=== PATIENT | female | born 1955 | race Caucasian/White ===

== ENCOUNTER 2017-09-11 11:41 | Emergency (ER) | payer BC, OTHER ==
[2017-09-11 12:00] LABS: AUTOMATED NEUTROPHIL # 9.2 TH/MM3 (1.8-7.7); BASOPHIL % 0.2 % (0.0-2.0); EOSINOPHIL # 0.2 TH/MM3 (0-0.4); EOSINOPHIL % 1.6 % (0.0-4.0); HEMATOCRIT 39.1 % (35.0-46.0); HEMO FLAGS DIFF FINAL; HEMOGLOBIN 12.7 GM/DL (11.6-15.3); LYMPH % 17.9 % (9.0-44.0); LYMPHOCYTE # 2.2 TH/MM3 (1.0-4.8); MEAN CELL VOLUME 82.7 FL (80.0-100.0); MEAN CORPUSCULAR HEMOGLOBIN 26.8 PG (27.0-34.0); MEAN CORPUSCULAR HGB CONC 32.4 % (32.0-36.0); MEAN PLATELET VOLUME 7.4 FL (7.0-11.0); MONO % 6.5 % (0.0-8.0); MONOCYTE # 0.8 TH/MM3 (0-0.9); NEUT % 73.8 % (16.0-70.0); PLATELET COUNT 352 TH/MM3 (150-450); RED BLOOD COUNT 4.73 MIL/MM3 (4.00-5.30); RED CELL DISTRIBUTION WIDTH 13.1 % (11.6-17.2); WHITE BLOOD COUNT 12.4 TH/MM3 (4.0-11.0)
[2017-09-11] MEDS ORDERED: SODIUM CHLORIDE 0.9% FLUSH 10 ML FLUSH IVF (12:00)
[2017-09-11 12:08] LABS: CHLORIDE 100 MEQ/L (98-107); POTASSIUM 3.6 MEQ/L (3.5-5.1); SODIUM (NA) 135 MEQ/L (136-145)
[2017-09-11 12:11] LABS: CALCIUM 9.2 MG/DL (8.5-10.1)
[2017-09-11 12:12] LABS: ALBUMIN 3.3 GM/DL (3.4-5.0); ANION GAP 8 MEQ/L (5-15); BICARBONATE 26.8 MEQ/L (21.0-32.0); BLOOD UREA NITROGEN 11 MG/DL (7-18); GLUCOSE,RANDOM 105 MG/DL (74-106); MAGNESIUM 2.2 MG/DL (1.5-2.5)
[2017-09-11 12:14] LABS: APTT (PATIENT) 26.4 SEC (24.3-30.1); INTERNATIONAL NORMALIZED RATIO 1.1 RATIO; PROTHROMBIN TIME - PATIENT 11.4 SEC (9.8-11.6)
[2017-09-11 12:15] LABS: ALT (GPT) 24 U/L (10-53); AST (GOT) 37 U/L (15-37); CREATININE 0.71 MG/DL (0.50-1.00); GLOMERULAR FILTRATION RATE 83 ML/MIN (>89)
[2017-09-11 12:16] LABS: TOTAL BILIRUBIN ADULT 0.7 MG/DL (0.2-1.0); TOTAL PROTEIN 7.4 GM/DL (6.4-8.2)
[2017-09-11 12:18] LABS: ALKALINE PHOSPHATASE 178 U/L (45-117)
[2017-09-11 12:20] LABS: TROPONIN I LESS THAN 0.02 NG/ML (0.02-0.05)
[2017-09-11 12:30] LABS: CREATINE KINASE 45 U/L (26-192)
[2017-09-11] MEDS: ASPIRIN 81 MG CHEW TAB CHEW (12:41)
== END 2017-09-11 13:51 | disposition home or self-care (01) ==
LOC: PHED 11:41
DX: R07.9 Chest pain, unspecified (principal); R94.31 Abnormal electrocardiogram [ECG] [EKG]; F41.8 Other specified anxiety disorders; F17.210 Nicotine dependence, cigarettes, uncomplicated
CPT/HCPCS: 71045; 80053; 82550; 83735; 84484; 85025; 85610; 85730; 93005; 99285

== ENCOUNTER 2017-09-16 10:39 | Inpatient (IN) | payer BC ==
[2017-09-16] VITALS (7 sets, daily range): BP systolic 126–164; BP diastolic 66–89; PULSE 68–91; RESP 16–18; TEMP 97.9–99.9; O2SAT 98–100
[~2017-09-16] VITALS: Ht 177.8 cm; Wt 75.2 kg
[2017-09-16] MEDS ORDERED: NEXI40CA PO (10:52)
[2017-09-16] MEDS ORDERED: SODIUM CHLORIDE 0.9% FLUSH 10 ML FLUSH IV FLUSH PRN (11:15)
--- NOTE | 2017-09-16 11:35 | RADRPT ---
EXAM DATE/TIME: 09/16/2017 11:15 [facility] COMPARISON: CHEST SINGLE AP, September 11, 2017, 12:06. INDICATIONS : Chest pain MEDICAL HISTORY : None. SURGICAL HISTORY : None. ENCOUNTER: Sequela ACUITY: 2 weeks PAIN SCORE: 10/10 LOCATION: Bilateral chest FINDINGS: A single view of the chest demonstrates the lungs to be symmetrically aerated without evidence of mas s, infiltrate or effusion. The cardiomediastinal contours are unremarkable. Osseous structures are intact. CONCLUSION: No acute disease. Micky Esqueda MD FACR on September 16, 2017 at 11:32 Board Certified Radiologist. This report was verified electronically.
[2017-09-16 11:55] LABS: AUTOMATED NEUTROPHIL # 9.2 TH/MM3 (1.8-7.7); BASOPHIL # 0.1 TH/MM3 (0-0.2); BASOPHIL % 0.8 % (0.0-2.0); EOSINOPHIL # 0.3 TH/MM3 (0-0.4); EOSINOPHIL % 2.3 % (0.0-4.0); HEMATOCRIT 38.4 % (35.0-46.0); HEMOGLOBIN 12.5 GM/DL (11.6-15.3); LYMPH % 14.3 % (9.0-44.0); LYMPHOCYTE # 1.7 TH/MM3 (1.0-4.8); MEAN CORPUSCULAR HGB CONC 32.5 % (32.0-36.0); MEAN PLATELET VOLUME 8.3 FL (7.0-11.0); MONO % 7.1 % (0.0-8.0); MONOCYTE # 0.9 TH/MM3 (0-0.9); NEUT % 75.5 % (16.0-70.0); PLATELET COUNT 296 TH/MM3 (150-450); RED BLOOD COUNT 4.63 MIL/MM3 (4.00-5.30); RED CELL DISTRIBUTION WIDTH 13.7 % (11.6-17.2); WHITE BLOOD COUNT 12.2 TH/MM3 (4.0-11.0)
[2017-09-16 12:05] LABS: CHLORIDE 103 MEQ/L (98-107); SODIUM (NA) 139 MEQ/L (136-145)
[2017-09-16 12:08] LABS: CALCIUM 8.5 MG/DL (8.5-10.1)
[2017-09-16 12:09] LABS: ALBUMIN 2.9 GM/DL (3.4-5.0); BICARBONATE 27.6 MEQ/L (21.0-32.0); BLOOD UREA NITROGEN 7 MG/DL (7-18); GLUCOSE,RANDOM 109 MG/DL (74-106); LIPASE 44 U/L (73-393)
[2017-09-16 12:12] LABS: ALT (GPT) 34 U/L (10-53); AST (GOT) 62 U/L (15-37); GLOMERULAR FILTRATION RATE 125 ML/MIN (>89)
[2017-09-16 12:13] LABS: TOTAL BILIRUBIN ADULT 0.6 MG/DL (0.2-1.0); TOTAL PROTEIN 7.1 GM/DL (6.4-8.2)
[2017-09-16 12:14] LABS: ALKALINE PHOSPHATASE 276 U/L (45-117)
--- NOTE | 2017-09-16 12:14 | PD ---
HPI Chief Complaint: Abdominal Pain Time Seen by Provider: 10:46 Travel History International Travel<30 days: No Contact w/Intl Traveler<30days: No Traveled to known affect area: No History of Present Illness HPI This is a 61-year-old female who presents to the emergency department with 1 month of chest discomfort that's been present initially in the middle of her chest, moving towards the right side below the rib cage on the right, intermittent, worse with deep breaths, associated with some nausea and generalized weakness. She says she can hardly walk because she feels like her legs are giving out. She says she's had some subjective fevers and chills. She 's not vomited. She was seen in the emergency department for similar symptoms several weeks ago. It was recommended that she stay in the chest pain center but she preferred to do a stress test as an outpatient. She has a stress test scheduled for September 29 but she's been feeling too badly so she came to the emergency department. She does have a significant [id number] smoking history. She otherwise denies hypertension, hyperlipidemia or diabetes. PFSH Past Medical History Anxiety: Yes Depression: Yes Cancer: Yes (SKIN) Diminished Hearing: No Integumentary: Yes (SKIN CA LEFT LOWER LEG) Tetanus Vaccination: > 5 Years Influenza Vaccination: Yes ?: Not Menopausal: Yes Tubal Ligation: Yes Past Surgical History Oral Surgery: Yes (titanium post) Social History Alcohol Use: No Tobacco Use: Yes (1PPD) Substance Use: No Allergies-Medications (Allergen,Severity, Reaction): Coded Allergies: No Known Allergies (Verified Allergy, Unknown, 09/16/17) Reported Meds & Prescriptions Reported Meds & Active Scripts Active Reported Nexium (Esomeprazole DR) 40 Mg Capdr 40 Mg PO DAILY Review of Systems Except as stated in HPI: all other systems reviewed are Neg Physical Exam Narrative GENERAL: Ill-appearing. SKIN: Focused skin assessment warm and dry. HEAD: Atraumatic. Normocephalic. EYES: Pupils equal and round. No injection or drainage. ENT: Moist mucous membranes NECK: Trachea midline. CARDIOVASCULAR: Regular rate and rhythm. No murmur appreciated. RESPIRATORY: Clear to auscultation. Breath sounds equal bilaterally. GASTROINTESTINAL: Abdomen soft, tender to palpation in the right upper quadrant with no rebound or guarding. MUSCULOSKELETAL: No obvious deformities. NEUROLOGICAL: Awake and alert. No obvious cranial nerve deficits. Moving all extremities. PSYCHIATRIC: Appropriate mood and affect; insight and judgment normal. Data Data Last Documented VS Vital Signs Date Time Temp Pulse Resp B/P (MAP) Pulse Ox O2 Delivery O2 Flow Rate FiO2 09/16/17 12:16 68 18 148/70 (96) 98 Room Air 09/16/17 10:42 98.9 Orders Orders Complete Blood Count With Diff (09/16/17 11:12) Comprehensive Metabolic Panel (09/16/17 11:12) Lipase (09/16/17 11:12) Urinalysis - C+S If Indicated (09/16/17 11:12) Iv Access Insert/Monitor (09/16/17 11:12) Ecg Monitoring (09/16/17 11:12) Oximetry (09/16/17 11:12) Sodium Chloride 0.9% Flush (Ns Flush) (09/16/17 11:15) Chest, Single Ap (09/16/17 11:12) D-Dimer (09/16/17 11:12) Us Abdomen Gallbladder (09/16/17 ) Troponin I (09/16/17 11:12) Ct Pulmonary Angiogram (09/16/17 ) Ct Abd/Pel W Iv Contrast(Rout) (09/16/17 ) Admit To Inpatient (09/16/17 ) Vital Signs (Adult) [place].Q4H (09/16/17 12:49) Activity Oob With Assistance (09/16/17 12:49) Inpatient Certification (09/16/17 ) Piperacil-Tazo 3.375 Gm Premix (Zosyn 3. (09/16/17 13:00) Admit Order (Ed Use Only) (09/16/17 ) Labs Laboratory Tests Test 09/16/17 11:00 09/16/17 12:10 White Blood Count 12.2 TH/MM3 Red Blood Count 4.63 MIL/MM3 Hemoglobin 12.5 GM/DL Hematocrit 38.4 % Mean Corpuscular Volume 83.0 FL Mean Corpuscular Hemoglobin 27.0 PG Mean Corpuscular Hemoglobin Concent 32.5 % Red Cell Distribution Width 13.7 % Platelet Count 296 TH/MM3 Mean Platelet Volume 8.3 FL Neutrophils (%) (Auto) 75.5 % Lymphocytes (%) (Auto) 14.3 % Monocytes (%) (Auto) 7.1 % Eosinophils (%) (Auto) 2.3 % Basophils (%) (Auto) 0.8 % Neutrophils # (Auto) 9.2 TH/MM3 Lymphocytes # (Auto) 1.7 TH/MM3 Monocytes # (Auto) 0.9 TH/MM3 Eosinophils # (Auto) 0.3 TH/MM3 Basophils # (Auto) 0.1 TH/MM3 CBC Comment DIFF FINAL Differential Comment D-Dimer Quantitative (PE/DVT) 2.12 MG/L FEU Blood Urea Nitrogen 7 MG/DL Creatinine 0.50 MG/DL Random Glucose 109 MG/DL Total Protein 7.1 GM/DL Albumin 2.9 GM/DL Calcium Level 8.5 MG/DL Alkaline Phosphatase 276 U/L Aspartate Amino Transf (AST/SGOT) 62 U/L Alanine Aminotransferase (ALT/SGPT) 34 U/L Total Bilirubin 0.6 MG/DL Sodium Level 139 MEQ/L Potassium Level 3.4 MEQ/L Chloride Level 103 MEQ/L Carbon Dioxide Level 27.6 MEQ/L Anion Gap 8 MEQ/L Estimat Glomerular Filtration Rate 125 ML/MIN Troponin I LESS THAN 0.02 NG/ML Lipase 44 U/L Urine Collection Type CLEAN CATCH Urine Color YELLOW Urine Turbidity CLEAR Urine pH 5.5 Urine Specific [place] 1.023 Urine Protein TRACE mg/dL Urine Glucose (UA) NEG mg/dL Urine Ketones TRACE mg/dL Urine Occult Blood NEG Urine Nitrite NEG Urine Bilirubin NEG Urine Leukocyte Esterase NEG Urine RBC 0-3 /hpf Urine WBC 3-5 /hpf Urine Squamous Epithelial Cells 0-5 /hpf Urine Mucus FEW /lpf Microscopic Urinalysis Comment CULT NOT INDICATED Urine Collection Time 12:10 [facility] Medical Decision Making Medical Screen Exam Complete: Yes Emergency Medical Condition: Yes Interpretation(s) Afebrile, no tachycardia, hypertensive Leukocytosis 75% neutrophils Electrolytes demonstrate elevated alkaline phosphatase Troponin is normal Urinalysis is negative for infection D-dimer is 2.1 Last 24 hours Impressions Chest X-Ray 09/16/17 1112 Signed Impressions: Service Date/Time: Saturday, September 16, 2017 11:15 - CONCLUSION: No acute disease. Micky Esqueda MD FACR Gall Bladder Ultrasound 09/16/17 0000 Signed Impressions: Service Date/Time: Saturday, September 16, 2017 11:57 - CONCLUSION: 1. The gallbladder demonstrates fairly diffuse gallbladder wall thickening with a trace amount of pericholecystic fluid. The gallbladder does appear decompressed with no definite gallstones seen. 2. There are at least 2 lesions identified within the liver. The larger lesion is increased echogenicity and probably represents hemangioma. There is a second lesion measuring 1.1 x 1.2 x 0.8 CM which is indeterminate. 3. There is a 2.4 x 2.9 x 2.3 cm hypoechoic mass projecting off the pancreas. CT imaging of the abdomen is warranted for further assessment. John Esqueda MD Differential Diagnosis Cholelithiasis, cholecystitis, myocardial infarction, GERD, pancreatitis, pulmonary embolism Narrative Course This is a 61-year-old female who presents to the emergency department with sternal and epigastric discomfort that's been going on for 1 month with one week of right upper quadrant abdominal pain. She's been nauseous and per her daughter has had very poor energy. She is placed on a monitor and an IV was established. Labs demonstrate a mild leukocytosis as well as an elevated alkaline phosphatase. Ultrasound of the right upper quadrant demonstrates gallbladder wall thickening and pericholecystic fluid concerning for cholecystitis. Patient was given a dose of Zosyn. I discussed the case with Dr. Barraza who will come consult on the patient. Patient also incidentally has a pancreatic mass. On ultrasound. CT will be obtained to evaluate this better. Physician Communication Physician Communication Discussed with Dr. Susana Knox and Dr. Maki Diagnosis Primary Impression: Cholecystitis Admitting Information Admitting Physician Requests: Observation Sydney Milan MD Sep 16, 2017 12:14
[2017-09-16 12:17] LABS: TROPONIN I LESS THAN 0.02 NG/ML (0.02-0.05)
[2017-09-16 12:24] LABS: BILIRUBIN, URINE NEG (NEG); BLOOD, URINE NEG (NEG); GLUCOSE,URINE NEG (NEG); KETONE, URINE TRACE mg/dL (NEG); NITRITE,URINE NEG (NEG); PH, URINE 5.5 (5.0-8.5); URINE LEUKOCYTE ESTERASE NEG (NEG)
[2017-09-16 12:27] LABS: URINE COLOR YELLOW (YELLW/STRAW)
[2017-09-16 12:28] LABS: MUCUS URINE FEW /lpf (OCC); RBC, URINE 0-3 /hpf (0-3); SQUAMOUS EPITHELIAL CELL URINE 0-5 /hpf (0-5)
--- NOTE | 2017-09-16 12:32 | RADRPT ---
EXAM DATE/TIME: 09/16/2017 11:57 [facility] COMPARISON: No previous studies available for comparison. INDICATIONS : Right upper quadrant pain. MEDICAL HISTORY : Skin cancer. SURGICAL HISTORY : Tubal ligation. Oral surgery. Back surgery. ENCOUNTER: Initial ACUITY: 2 weeks PAIN SCORE: 7/10 LOCATION: Right upper quadrant MEASUREMENTS: LIVER: 19.4 cm length COMMON DUCT: 3 mm RIGHT KIDNEY: 13.0 x 5.3 x 5.0 cm FINDINGS: LIVER: Imaging through the liver demonstrates at least 2 solid nodules. The first is in the right lobe liver measures 2.2 x 1.6 x 2.1 cm. This is increased in echogenicity and probably represents a hemangioma. There is a second ill-defined area of decreased echogenicity in the left lobe measuring 1.1 x 1.2 x 0.8 CM. This is indeterminate in appearance by ultrasound. Followup CT with contrast with at some poi nt would be of benefit for further assessment. There is no intrahepatic biliary ductal dilation. COMMON DUCT: No intraluminal mass or stone visualized. GALLBLADDER: No gallstones are seen within the gallbladder. The gallbladder appears fairly decompressed. There is diffuse gallbladder wall thickening. There is a trace amount of pericholecystic fluid. PANCREAS: Examination of the pancreas demonstrates a 2.4 x 2.9 x 2.3 cm hypo echoic mass projecting off the ziyad l of the pancreas. This would be concerning for possible malignancy. Again CT imaging of the abdomen with contrast is warranted for further assessment. RIGHT KIDNEY: No evidence of hydronephrosis, stone, or mass. CONCLUSION: 1. The gallbladder demonstrates fairly diffuse gallbladder wall thickening with a trace amount of per icholecystic fluid. The gallbladder does appear decompressed with no definite gallstones seen. 2. There are at least 2 lesions identified within the liver. The larger lesion is increased echogenic ity and probably represents hemangioma. There is a second lesion measuring 1.1 x 1.2 x 0.8 CM which i s indeterminate. 3. There is a 2.4 x 2.9 x 2.3 cm hypoechoic mass projecting off the pancreas. CT imaging of the abdom en is warranted for further assessment. John Esqueda MD on September 16, 2017 at 12:25 Board Certified Radiologist. This report was verified electronically.
[2017-09-16] MEDS ORDERED: PIPERACIL-TAZO 3.375 GM PREMIX 50 ML IV ONE (13:00)
[2017-09-16] MEDS ORDERED: DIATRIZOATE MEGLUM/DIATRIZOATE SOD 9 ML CUP ONE (13:02)
--- NOTE | 2017-09-16 13:28 | HHI.HP ---
[facility] Primary [facility] Physician Lisa Espino MD Admission Diagnosis acute cholecystitis Diagnoses: Chief Complaint: Chest pain and belly pain Travel History International Travel<30 Days: No Contact w/Intl Traveler <30 Da: No Traveled to Known Affected Are: No History of Present Illness 61-year-old white female being admitted for acute cholecystitis as well as melena. Patient reports being in her usual state of health until about a few weeks ago when she began experiencing vague epigastric pain and some chest pain. She went to her PCP and was referred for outpatient workup including a chest x-ray, stress test, and a possible EGD. Only the chest x-ray has been performed but the other 2 tests are still scheduled as an outpatient for a later date. Patient did come to the emergency department some time last week for the original onset of these symptoms and was discharged home. She does not think it is her heart. She reports that her epigastric pain and chest pain are not actually induced by eating nor are they consistently reproduced by position changes. Patient does think that some of her chest pain happens when she lifts up heavy objects at work. She says she was prescribed Nexium and did not notice any difference in her chest pain and epigastric pain. She decided come back to the emergency room earlier this morning due to a new onset of right- sided abdominal pain. Again this pain was not necessarily food related. Patient does note that for the last 2 weeks she's had intermittent black stools. She had taken Pepto-Bismol in response to this new finding as well with no changes. Patient does report taking ibuprofen occasionally, last time she took it she claims was 3 weeks ago. The emergency room, the patient's d-dimer was noted to be slightly elevated and her gallbladder ultrasound showed gallbladder wall thickening as well as a possible pancreatic mass. Vital signs otherwise remained stable. 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 EYES: No scleral icterus. No injection or drainage. ENT: No nasal bleeding or discharge. CARDIOVASCULAR: Regular rate and rhythm. no murmurs RESPIRATORY: No accessory muscle use. Clear to auscultation. Breath sounds equal bilaterally. GASTROINTESTINAL: Abdomen soft, non-tender, nondistended. Has no focal tenderness to palpation in epigastrium nor right upper lower quadrants., No masses palpated Extremities: No clubbing, cyanosis, or edema. No obvious deformities. MUSCULOSKELETAL: Has no reproducible chest wall tenderness to palpation over the areas which the patient states she has had pain Including sternum and bilateral pectoral regions. Grossly intact ROM with 5/5 strength in upper and lower extremities proximally; adequate muscle bulk and tone for age and habitus NEUROLOGICAL: Awake and alert. No obvious cranial nerve deficits. No facial droop nor slurred speech noted. PSYCHIATRIC: Appropriate mood and affect; insight and judgment normal. Laboratory Laboratory Tests Test 09/16/17 11:00 09/16/17 12:10 White Blood Count 12.2 Red Blood Count 4.63 Hemoglobin 12.5 Hematocrit 38.4 Mean Corpuscular Volume 83.0 Mean Corpuscular Hemoglobin 27.0 Mean Corpuscular Hemoglobin Concent 32.5 Red Cell Distribution Width 13.7 Platelet Count 296 Mean Platelet Volume 8.3 Neutrophils (%) (Auto) 75.5 Lymphocytes (%) (Auto) 14.3 Monocytes (%) (Auto) 7.1 Eosinophils (%) (Auto) 2.3 Basophils (%) (Auto) 0.8 Neutrophils # (Auto) 9.2 Lymphocytes # (Auto) 1.7 Monocytes # (Auto) 0.9 Eosinophils # (Auto) 0.3 Basophils # (Auto) 0.1 CBC Comment DIFF FINAL Differential Comment D-Dimer Quantitative (PE/DVT) 2.12 Blood Urea Nitrogen 7 Creatinine 0.50 Random Glucose 109 Total Protein 7.1 Albumin 2.9 Calcium Level 8.5 Alkaline Phosphatase 276 Aspartate Amino Transf (AST/SGOT) 62 Alanine Aminotransferase (ALT/SGPT) 34 Total Bilirubin 0.6 Sodium Level 139 Potassium Level 3.4 Chloride Level 103 Carbon Dioxide Level 27.6 Anion Gap 8 Estimat Glomerular Filtration Rate 125 Troponin I LESS THAN 0.02 Lipase 44 Urine Collection Type CLEAN CATCH Urine Color YELLOW Urine Turbidity CLEAR Urine pH 5.5 Urine Specific [place] 1.023 Urine Protein TRACE Urine Glucose (UA) NEG Urine Ketones TRACE Urine Occult Blood NEG Urine Nitrite NEG Urine Bilirubin NEG Urine Leukocyte Esterase NEG Urine RBC 0-3 Urine WBC 3-5 Urine Squamous Epithelial Cells 0-5 Urine Mucus FEW Microscopic Urinalysis Comment CULT NOT INDICATED Urine Collection Time 12:10 Result Diagram: 09/16/17 1100 09/16/17 1100 Imaging Last Impressions Chest X-Ray 09/16/17 1112 Signed Impressions: Service Date/Time: Saturday, September 16, 2017 11:15 - CONCLUSION: No acute disease. Micky Esqueda MD FACR Gall Bladder Ultrasound 09/16/17 0000 Signed Impressions: Service Date/Time: Saturday, September 16, 2017 11:57 - CONCLUSION: 1. The gallbladder demonstrates fairly diffuse gallbladder wall thickening with a trace amount of pericholecystic fluid. The gallbladder does appear decompressed with no definite gallstones seen. 2. There are at least 2 lesions identified within the liver. The larger lesion is increased echogenicity and probably represents hemangioma. There is a second lesion measuring 1.1 x 1.2 x 0.8 CM which is indeterminate. 3. There is a 2.4 x 2.9 x 2.3 cm hypoechoic mass projecting off the pancreas. CT imaging of the abdomen is warranted for further assessment. MD Angy Hookeri VTE Risk Assessment Caprini VTE Risk Assessment: Mod/High Risk (score >= 2) Caprini Risk Assessment Model Point Value = 1 Point Value = 2 Point Value = 3 Point Value = 5 Age 41-60 Minor surgery BMI > 25 kg/m2 Swollen legs Varicose veins or History of unexplained or recurrent spontaneous Oral contraceptives or hormone replacement Sepsis (< 1 month) Serious lung disease, including pneumonia (< 1 month) Abnormal pulmonary function Acute myocardial infarction Congestive heart failure (< 1 month) History of inflammatory bowel disease Medical patient at bed rest Age 61-74 Arthroscopic surgery Major open surgery (> 45 min) Laparoscopic surgery (> 45 min) Malignancy Confined to bed (> 72 hours) Immobilizing plaster cast Central venous access Age >= 75 History of VTE Family history of VTE Factor V Leiden Prothrombin [id number] Lupus anticoagulant Anticardiolipin antibodies Elevated serum homocysteine Heparin-induced thrombocytopenia Other congenital or acquired thrombophilia Stroke (< 1 month) Elective arthroplasty Hip, pelvis, or leg fracture Acute spinal cord injury (< 1 month) Prophylaxis Regimen Total Risk Factor Score Risk Level Prophylaxis Regimen 0-1 Low Early ambulation 2 Moderate Order ONE of the following: *Sequential Compression Device (SCD) *Heparin 5000 units SQ BID 3-4 Higher Order ONE of the following medications: *Heparin 5000 units SQ TID *Enoxaparin/Lovenox 40 mg SQ daily (WT < 150 kg, CrCl > 30 mL/min) *Enoxaparin/Lovenox 30 mg SQ daily (WT < 150 kg, CrCl > 10-29 mL/min) *Enoxaparin/Lovenox 30 mg SQ BID (WT < 150 kg, CrCl > 30 mL/min) AND/OR *Sequential Compression Device (SCD) 5 or more Highest Order ONE of the following medications: *Heparin 5000 units SQ TID (Preferred with Epidurals) *Enoxaparin/Lovenox 40 mg SQ daily (WT < 150 kg, CrCl > 30 mL/min) *Enoxaparin/Lovenox 30 mg SQ daily (WT < 150 kg, CrCl > 10-29 mL/min) *Enoxaparin/Lovenox 30 mg SQ BID (WT < 150 kg, CrCl > 30 mL/min) AND *Sequential Compression Device (SCD) Assessment and Plan Assessment and Plan Recent melena - In context of abdominal pain, warrants gastroenterology to perform EGD. Starting Protonix. With no known history of varices, we'll hold off on octreotide drip. Discussed case with GI that this was the reason why I consulted them. Abdominal pain - Multifactorial, could be cholecystitis based upon GB US, for which case general surgery has been consulted and will evaluate the patient; could also be same source of melena/peptic ulcer disease. given zosyn in ED. - IV fluids - CT scan of abdomen is pending. Vague chest pain with elevated d-dimer - CT angiogram pending - Trending troponins SCDs given pt may have surgery. Physician Certification 2 Midnight Certification Type: Admission for Inpatient Services Order for Inpatient Services The services are ordered in accordance with Medicare regulations or non- Medicare payer requirements, as applicable. In the case of services not specified as inpatient-only, they are appropriately provided as inpatient services in accordance with the 2-midnight benchmark. Estimated LOS (days): 3 3 days is the estimated time the patient will need to remain in the hospital, assuming treatment plan goals are met and no additional complications. Post-Hospital Plan: Home Kvng Maki MD Sep 16, 2017 13:27
[2017-09-16] MEDS: PANTOPRAZOLE SODIUM 40 MG VIAL IV PUSH SCH (14:00)
[2017-09-16] MEDS ORDERED: SODIUM CHLOR 0.9% 250 ML INJ 250 ML IV ONE (14:00)
[2017-09-16] MEDS: LACTATED RINGER'S 1000 ML INJ 1,000 ML IV SCH (15:17)
[2017-09-16] MEDS ORDERED: IOHEXOL 350 MG/ML 10 ML VIAL (for RAD DIAG) IVCONTRAST ONE (15:53)
--- NOTE | 2017-09-16 16:00 | RADRPT ---
EXAM DATE/TIME: 09/16/2017 15:38 [facility] COMPARISON: No previous studies available for comparison. INDICATIONS : Chest discomfort x 1 month. Short of breath with exertion. IV CONTRAST: 95 cc Omnipaque 350 (iohexol) IV ; Cumulative dose for multiple exams. RADIATION DOSE: 11.37 CTDIvol (mGy) MEDICAL HISTORY : None SURGICAL HISTORY : Tubal ligation. ENCOUNTER: Initial ACUITY: 1 month PAIN SCALE: 2/10 LOCATION: chest TECHNIQUE: Volumetric scanning of the chest was performed using a pulmonary embolism protocol MIP images were re constructed. Using automated exposure control and adjustment of the mA and/or kV according to patien t size, radiation dose was kept as low as reasonably achievable to obtain optimal diagnostic quality images. DICOM format image data is available electronically for review and comparison. Follow-up recommendations for detected pulmonary nodules are based at a minimum on nodule size and pa tient risk factors according to Fleischner Society Guidelines. FINDINGS: PULMONARY ARTERIES: No filling defects are seen in the pulmonary arteries through the segmental level. LUNGS: Solitary 9 mm well-defined pulmonary nodule in the posterior right lower lung. There is central lobar emphysema throughout all lung perez with chronic interstitial changes. No acute pulmonary infiltrat es. PLEURAE: There is no pleural thickening or pleural effusion. MEDIASTINUM: There is good visualization of the great vessels of the middle mediastinum. No evidence of mediastin al or hilar adenopathy/mass. MUSCULOSKELETAL: Within normal limits for patient age. MISCELLANEOUS: Multiple low-density lesions throughout the liver characteristic for diffuse liver metastatic disease . There appears to be a mass in the body of the pancreas. This will be further evaluated with a CT sc an of the abdomen and pelvis. CONCLUSION: 1. No evidence of pulmonary embolism. 2. 9 mm solitary pulmonary nodule posterior right lower lung 3. Diffuse liver metastatic disease. 4. Probable mass in the body of the pancreas suggestive of neoplastic disease. This will be further e valuated with a CT scan of the abdomen and pelvis. Miquel Villafana MD on September 16, 2017 at 15:53 Board Certified Radiologist. This report was verified electronically.
--- NOTE | 2017-09-16 16:08 | RADRPT ---
EXAM DATE/TIME: 09/16/2017 15:38 [place] COMPARISON: No previous studies available for comparison. INDICATIONS : Midline abdominal pain. IV CONTRAST: 95 cc Omnipaque 350 (iohexol) IV ORAL CONTRAST: Partial prescribed oral contrast ingested. RADIATION DOSE: 15.68 CTDIvol (mGy) MEDICAL HISTORY : None SURGICAL HISTORY : Tubal ligation. ENCOUNTER: Initial ACUITY: 1 month PAIN SCALE: 6/10 LOCATION: Midline abdomen. TECHNIQUE: Volumetric scanning of the abdomen and pelvis was performed. Using automated exposure control and ad justment of the mA and/or kV according to patient size, radiation dose was kept as low as reasonably achievable to obtain optimal diagnostic quality images. DICOM format image data is available electro nically for review and comparison. FINDINGS: LOWER LUNGS: The visualized lower lungs are clear. LIVER: Multiple scattered low-density lesions are seen throughout the entire liver characteristic of diffuse liver metastatic disease. No dilated biliary ducts. The portal system is patent. There is some thick ening of the gallbladder wall. There is a trace of fluid around the gallbladder. SPLEEN: Normal size without lesion. PANCREAS: There is a mass in the mid body of the pancreas measuring 3.0 x 2.5 cm. Primary neoplastic disease is a consideration. KIDNEYS: Normal in size and shape. There is no mass, stone or hydronephrosis. ADRENAL GLANDS: Within normal limits. VASCULAR: There is no aortic aneurysm. BOWEL/MESENTERY: The stomach, small bowel, and colon demonstrate no acute abnormality. There is no free intraperitone al air. There is some free fluid deep in the pelvis. A few scattered diverticula are seen throughout the sigmoid colon without inflammatory changes. ABDOMINAL WALL: Within normal limits. RETROPERITONEUM: There is evidence of diffuse para-aortic adenopathy. There is a left para-aortic lymph node measuring 1.9 cm. There is a prominent right retrocrural lymph node. No definite pelvic adenopathy. BLADDER: No wall thickening or mass. REPRODUCTIVE: The uterus is within normal limits. There is a small amount of fluid in the cul-de-sac. There are pro minent vascular structures in both adnexal areas. INGUINAL: There is no lymphadenopathy or hernia. MUSCULOSKELETAL: Within normal limits for patient age. Diffuse degenerative changes. CONCLUSION: 1. There is a mass in the mid body of the pancreas measuring 3.0 x 2.5 cm characteristic for primary pancreatic carcinoma. 2. Multiple low-density lesions throughout the liver characteristic for diffuse liver metastatic dise ase. 3. Para-aortic adenopathy characteristic of neoplastic disease. 4. Chronic gallbladder disease. No biliary tract obstruction. 5. Small amount of fluid is seen in the cul-de-sac. 6. Pelvic congestion syndrome. Miquel Villafana MD on September 16, 2017 at 15:59 Board Certified Radiologist. This report was verified electronically.
--- NOTE | 2017-09-16 18:47 | MB ---
cc: ELADIA FRANKLIN HARRY MD DATE OF CONSULTATION 09/16/17 HISTORY OF PRESENT ILLNESS The patient is a 61-year-old white female I was asked to see for further evaluation ____ of melena. She, for the past month, has been experiencing epigastric and retrosternal chest discomfort that is relatively constant and steady and associated with significant nausea. It radiates to the back, has not improved with a week of Nexium. She stopped taking ibuprofen two weeks ago and there has been no improvement. There has been no emesis. She does have early satiety. She has lost 40 pounds over the past six months, although she believes a good portion of this is related to dental work she has been experiencing over the past six months. Recently, food intake does increase the epigastric discomfort but not by much. Stools have been black but formed even before starting Pepto-Bismol, recently. PAST MEDICAL HISTORY 1. Adenomatous colon polyps. Her next colonoscopy is due later this year per protocol. 2. History of esophageal dysphagia treated with dilation in 2007 with no recurrence of symptoms. MEDICATIONS In hospital 1. IV Protonix. 2. Piperacillin/tazobactam. ALLERGIES None known to medication. SOCIAL HISTORY She still smokes one half-pack of cigarettes per day. She uses no alcohol. FAMILY HISTORY One brother with lung cancer, Another with pancreatic cancer, both were smokers. REVIEW OF SYSTEMS No recent headaches. No history of seizures or strokes. No vision difficulties. No dysphagia, odynophagia or typical heartburn, no hematochezia. No history of thyroid disease, liver disease, diabetes or hypertension. PHYSICAL EXAMINATION VITAL SIGNS: Her weight is 74.2 kg, blood pressure 126/70, pulse 68, respiratory rate 18, temperature 98.9, saturation 98% on room air. GENERAL: She is alert. She is oriented x3. She is anicteric. HEENT: Extraocular motions are intact. I appreciate no submandibular, cervical, supraclavicular, axillary or epitrochlear adenopathy. LUNGS: Clear to auscultation. HEART: Regular rate and rhythm with no gross murmur or gallop. ABDOMEN: Good bowel sounds with a moderate epigastric bruit. There is mild epigastric tenderness. No masses or hepatosplenomegaly are palpable. EXTREMITIES: No pedal edema Dupuytren's contractures or palmar erythema. RECTAL: There is no hemoccult cup card here on the floor for me to perform a rectal examination to evaluate for status of occult blood. LABORATORY FINDINGS White count 12.2, hemoglobin 12.5, MCV 83, platelets 296, D-dimer 2.12 Sodium 139, potassium 3.4, BUN seven, creatinine 0.5, AST 62, ALT 34, alkaline phosphatase 276, bilirubin 0.6, albumin 2.9, lipase 44. Urinalysis unremarkable. IMAGING STUDIES Ultrasound of the abdomen performed today revealed diffuse gallbladder wall thickening with a trace amount of pericholecystic fluid, no obvious stones noted in the gallbladder. The biliary tree appeared normal. At least two lesions identified in the liver, the larger likely representing hemangioma, the smaller one that measures 1.1 x 1.2 x 0.8 cm was indeterminate. There is a 2.4 x 2.9 x 2.3 cm hypoechoic mass projecting off the pancreatic tail suspicious for neoplastic process. IMPRESSION 1. Abdominal pain for a month with radiation to the back associated with weight loss (the weight loss could be related to a secondary component of poor oral intake due to dental surgeries). We discussed pancreatic neoplasia. We discussed cholecystitis. I do not suspect acid peptic disease causing these symptoms. Protonix has been started. We will check the pending CT scan and make further plans depending on the results. With the ultrasound suggesting a thickened gallbladder wall with pericholecystic fluid, there may be a degree of cholecystitis but her symptoms are not dramatic at this time. I will follow along closely. 2. Abdominal bruit. She has had no postprandial abdominal pain or exercise-induced abdominal pain and I believe this is just an incidental finding. MD GUY French/ /3:01 PM /6:12 PM LAINE
[2017-09-16] MEDS: ACETAMINOPHEN/HYDROcodone 325 MG/5 MG TAB PO PRN (18:55)
[2017-09-17 00:31] VITALS: BP 147/87; PULSE 75; RESP 16; TEMP 97.9; O2SAT 99
[2017-09-17] MEDS: ACETAMINOPHEN/HYDROcodone 325 MG/5 MG TAB PO PRN ×2 (03:02→17:36)
[2017-09-17] MEDS: LACTATED RINGER'S 1000 ML INJ 1,000 ML IV SCH ×3 (03:06→18:30)
[2017-09-17 08:00] VITALS: BP 130/82; PULSE 73; RESP 18; O2SAT 100
[2017-09-17 08:04] LABS: BASOPHIL % 0.5 % (0.0-2.0); EOSINOPHIL # 0.3 TH/MM3 (0-0.4); EOSINOPHIL % 2.7 % (0.0-4.0); HEMATOCRIT 37.6 % (35.0-46.0); HEMOGLOBIN 12.1 GM/DL (11.6-15.3); LYMPH % 17.6 % (9.0-44.0); LYMPHOCYTE # 1.7 TH/MM3 (1.0-4.8); MEAN CELL VOLUME 82.5 FL (80.0-100.0); MEAN CORPUSCULAR HEMOGLOBIN 26.5 PG (27.0-34.0); MEAN CORPUSCULAR HGB CONC 32.1 % (32.0-36.0); MEAN PLATELET VOLUME 8.3 FL (7.0-11.0); MONO % 7.7 % (0.0-8.0); MONOCYTE # 0.7 TH/MM3 (0-0.9); NEUT % 71.5 % (16.0-70.0); PLATELET COUNT 286 TH/MM3 (150-450); RED BLOOD COUNT 4.55 MIL/MM3 (4.00-5.30); RED CELL DISTRIBUTION WIDTH 13.9 % (11.6-17.2); WHITE BLOOD COUNT 9.7 TH/MM3 (4.0-11.0)
[2017-09-17 08:43] LABS: ALBUMIN 2.8 GM/DL (3.4-5.0); ALKALINE PHOSPHATASE 287 U/L (45-117); ALT (GPT) 33 U/L (10-53); AST (GOT) 57 U/L (15-37); BICARBONATE 28.5 MEQ/L (21.0-32.0); BLOOD UREA NITROGEN 5 MG/DL (7-18); CALCIUM 8.5 MG/DL (8.5-10.1); CHLORIDE 103 MEQ/L (98-107); CREATININE 0.42 MG/DL (0.50-1.00); GLOMERULAR FILTRATION RATE 153 ML/MIN (>89); GLUCOSE,RANDOM 90 MG/DL (74-106); SODIUM (NA) 138 MEQ/L (136-145); TOTAL PROTEIN 6.6 GM/DL (6.4-8.2)
--- NOTE | 2017-09-17 10:42 | HHI.PR ---
Subjective Remarks Follow-up metastatic pancreatic cancer. He should seen and examined, lying in bed comfortably. Pain is actually controlled. No events overnight. General surgery, oncologist and gastroenterology in two days to see patient for follow- up. Objective Vitals Vital Signs Date Time Temp Pulse Resp B/P (MAP) Pulse Ox O2 Delivery O2 Flow Rate FiO2 09/17/17 08:00 73 18 130/82 (98) 100 09/17/17 00:31 97.9 75 16 147/87 (107) 99 09/16/17 21:43 97.9 78 16 152/89 (110) 98 09/16/17 16:00 99.9 77 17 161/74 (103) 100 09/16/17 13:40 68 18 126/70 (88) 98 09/16/17 12:16 68 18 148/70 (96) 98 Room Air 09/16/17 11:00 98 Room Air 09/16/17 10:53 90 18 131/66 (87) 98 Room Air 09/16/17 10:42 98.9 91 18 164/70 (101) 99 I/O 09/16/17 09/16/17 09/16/17 09/17/17 09/17/17 09/17/17 07:00 15:00 23:00 07:00 15:00 23:00 Intake Total 50 ml 250 ml 859 ml Balance 50 ml 250 ml 859 ml Intake IV Total 50 ml 250 ml 859 ml # Voids 4 Result Diagram: 09/17/17 0711 09/17/17 0711 Imaging Last Impressions Chest X-Ray 09/16/17 1112 Signed Impressions: Service Date/Time: Saturday, September 16, 2017 11:15 - CONCLUSION: No acute disease. Micky Esqueda MD FACR Gall Bladder Ultrasound 09/16/17 0000 Signed Impressions: Service Date/Time: Saturday, September 16, 2017 11:57 - CONCLUSION: 1. The gallbladder demonstrates fairly diffuse gallbladder wall thickening with a trace amount of pericholecystic fluid. The gallbladder does appear decompressed with no definite gallstones seen. 2. There are at least 2 lesions identified within the liver. The larger lesion is increased echogenicity and probably represents hemangioma. There is a second lesion measuring 1.1 x 1.2 x 0.8 CM which is indeterminate. 3. There is a 2.4 x 2.9 x 2.3 cm hypoechoic mass projecting off the pancreas. CT imaging of the abdomen is warranted for further assessment. John Esqueda MD CT Angiography 09/16/17 Signed Impressions: Service Date/Time: Saturday, September 16, 2017 15:38 - CONCLUSION: 1. No evidence of pulmonary embolism. 2. 9 mm solitary pulmonary nodule posterior right lower lung 3. Diffuse liver metastatic disease. 4. Probable mass in the body of the pancreas suggestive of neoplastic disease. This will be further evaluated with a CT scan of the abdomen and pelvis. Miquel Villafana MD Abdomen/Pelvis CT 09/16/17 Signed Impressions: Service Date/Time: Saturday, September 16, 2017 15:38 - CONCLUSION: 1. There is a mass in the mid body of the pancreas measuring 3.0 x 2.5 cm characteristic for primary pancreatic carcinoma. 2. Multiple low-density lesions throughout the liver characteristic for diffuse liver metastatic disease. 3. Para-aortic adenopathy characteristic of neoplastic disease. 4. Chronic gallbladder disease. No biliary tract obstruction. 5. Small amount of fluid is seen in the cul-de-sac. 6. Pelvic congestion syndrome. Miquel Villafana MD Objective Remarks GENERAL: Well-nourished, well-developed patient in NAD. SKIN: Warm and dry. No rash. HEAD: Normocephalic. Atraumatic. EYES: Pupils equal and round. No scleral icterus. No injection or drainage. ENT: No nasal bleeding or discharge. Mucous membranes pink and moist. NECK: Supple. Trachea midline. CARDIOVASCULAR: Regular rate and rhythm. S1, S2 noted. No murmur appreciated. RESPIRATORY: No accessory muscle use. Clear to auscultation. Breath sounds equal bilaterally. GASTROINTESTINAL: Abdomen soft, non-tender, nondistended. Normoactive bowel sounds x4. MUSCULOSKELETAL: No obvious deformities. Extremities without clubbing, cyanosis , or edema. NEUROLOGICAL: Awake and alert. No obvious cranial nerve deficits. Motor grossly within normal limits. 5/5 muscle strength in bilateral upper and lower extremities. Normal speech. PSYCHIATRIC: Appropriate mood and affect; insight and judgment normal. A/P Assessment and Plan Abdominal pain rule out pancreatic carcinoma Presence of melena Abdominal and pelvis CT reviewed showing a mass in the mid body of the pancreas characteristic for primary pancreatic carcinoma. There were also multiple lesions in the liver. CTA reviewed showing pulmonary nodule in the right lower lung, diffuse liver metastatic disease and probable mass in the pancreas. Chest x-ray reviewed showing no acute disease. Gastroenterology following patient. Continue Protonix. Gen. surgery saw patient today, no plan for surgery at this time. Ordered for CT-guided liver biopsy. Oncologist saw patient today, recommendations for liver biopsy and port placement. Dr. Moser to follow patient at the main hospital in [facility]. Will transfer. Continue IV fluids. Control pain, Stone available when necessary as needed. Chest pain, resolved. Troponin negative. D-dimer elevated. CTA negative for PE. DVT prophylaxis: SCDs. Lashell Brice Sep 17, 2017 10:42
[2017-09-17 10:47] LABS: CARCINOEMBRYONIC ANTIGEN 11.6 NG/ML (0.2-5.0)
[2017-09-17 12:00] VITALS: BP 129/77; PULSE 80; RESP 18; TEMP 99; O2SAT 100
--- NOTE | 2017-09-17 12:12 | HHI.GIFU ---
GI Follow-up Note Consult Follow-up Subjective: Patient laying in bed comfortably, no new complaints. 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 Available Data (labs, X- Rays, Procedues) : CT reviewed ASSESSMENT/PLAN: Metastatic pancreatic cancer. Plan: liver biopsy, port and chemotherapy. Discussed with patient, daughter and with Dr. Moser. I'll sign off for now. It was a pleasure seeing Back,Junie Thomposn. Entered by: Jeet Howell MD Sep 17, 2017 12:12
--- NOTE | 2017-09-17 13:32 | EKG ---
Date Performed: 09/16/2017 Time Performed: 15:01:13 PTAGE: 61 years EKG: Sinus rhythm POSSIBLE RIGHT VENTRICULAR CONDUCTION DELAY MINIMAL ST DEPRESSION Since the prior tracing, there has been no significant change BORDERLINE ECG PREVIOUS TRACING : 09/16/2017 10.57 DOCTOR: Andres Farris Interpretating Date/Time 09/17/2017 13:30:24
--- NOTE | 2017-09-17 13:32 | EKG ---
Date Performed: 09/16/2017 Time Performed: 10:57:44 PTAGE: 61 years EKG: Sinus rhythm POSSIBLE RIGHT VENTRICULAR CONDUCTION DELAY MODERATE ST DEPRESSION Since the prior tracing, there fu s been no significant change ABNORMAL ECG PREVIOUS TRACING : 09/11/2017 11.49 DOCTOR: Andres Farris Interpretating Date/Time 09/17/2017 13:30:57
[2017-09-17 13:42] LABS: CA 19-9 28850.5 U/ML (0.0-35.0)
[2017-09-17] MEDS: PANTOPRAZOLE SODIUM 40 MG VIAL IV PUSH SCH (14:03)
--- NOTE | 2017-09-17 14:24 | MB ---
cc: HARSHAL MIRANDA DATE OF CONSULTATION: 09/17/2017. REASON FOR CONSULTATION: Right upper quadrant pain, pancreas and liver metastasis, surgical oncology evaluation. PERSON REQUESTING THE CONSULTATION: Dr. Maki. HISTORY OF PRESENT ILLNESS: The patient is a 61-year-old female who was admitted to [facility] for right upper quadrant pain and initial concern of cholecystitis. The patient on initial workup however was found to have a large pancreatic body mass with multiple liver lesions concerning for metastatic disease. The patient was admitted and GI and surgery were consulted. The patient states that about six months ago she started feeling some reflux and vague discomfort as well as decreased energy and about 40 pounds of weight loss over six months. This was a very nonspecific type of pain and she even presented to the emergency department one time for chest pain which was ruled out. The patient has actually been eating. She has no nausea or vomiting, jaundice, diarrhea, constipation, fevers, chills or night sweats or any focal area of pain. She just generally overall feels poorly. REVIEW OF SYSTEMS: A twelve-point review of systems was gone over with the patient and is negative except for the pertinent positives mentioned above in the history of present illness. PAST MEDICAL HISTORY: No chronic medical problems. PAST SURGICAL HISTORY: Tubal ligation. ALLERGIES: NO KNOWN DRUG ALLERGIES. HOME MEDICATIONS: None. FAMILY HISTORY: A brother of pancreas cancer in his 50s. Multiple siblings with lung cancer. SOCIAL HISTORY: The patient is a current smoker and smoked her whole life. Used to drink alcohol heavily younger but has not had anything to drink in twenty or thirty years. She denies illicit drug use. She lives with her daughter. PHYSICAL EXAMINATION: VITAL SIGNS: Temperature 97.9 degrees, heart rate 75, respiratory rate 16, blood pressure 147/87. GENERAL: The patient is a well-developed, well-nourished female in no acute distress. HEAD, EYES, EARS, NOSE, THROAT: Head is normocephalic and atraumatic. Pupils are round and reactive to light. The sclerae are nonicteric. The oral cavity is clear. The airway is patent. NECK: The neck is supple. No jugular venous distention. LUNGS: Breath sounds are present bilaterally. Nonlabored breathing pattern. HEART: Regular rate and rhythm. ABDOMEN: Abdomen soft. Normal bowel sounds. The liver is palpable under the costal margin. Mildly uncomfortable. Negative Guevara's sign. No ascites. No hernias. No organomegaly other than the liver. BACK: No costovertebral angle tenderness. EXTREMITIES: No cyanosis, clubbing or edema. NEUROLOGIC: The patient is alert and oriented times three. Mood, insight and judgment and decision-making appear to be intact. Cranial nerves II through XII are grossly intact. Extremities are nonfocal. LABORATORY VALUES: Hemoglobin 12.1. Tumor markers are pending. Bilirubin is within normal limits. Alkaline phosphatase is elevated at 287. IMAGING STUDIES: CT scan of the abdomen and pelvis does show multiple liver metastasis type lesions and a 3 cm pancreatic body mass consistent with pancreatic adenocarcinoma. ASSESSMENT AND PLAN: The patient is a 61-year-old female with likely newly diagnosed pancreatic stage IV malignancy. The patient will need a CT-guided liver biopsy. She has multiple liver lesions that should be amenable to CT-guided biopsy which will give us a diagnosis and a stage. Tumor markers are pending. The patient does not seem to have acute gallbladder abnormality however there is a possibility that she is having some biliary early obstruction due to the masses versus cholestasis. Do recommend empiric antibiotics initially. Again, I do not think the patient will need any acute intervention on the gallbladder, though we will monitor this. I do recommend medical oncology evaluation and to set up follow up as well. The patient is in need of a Port-A-Cath and we could place this either inpatient or outpatient as well. We will follow along with the patient intermittently and will be available for any assistance in this patient's care. Thank you very much for this consultation. MD REUBEN Guajardo/COOPER /9:13 AM /1:47 PM
[2017-09-17 16:00] VITALS: BP 151/76; PULSE 80; RESP 18; TEMP 99.3; O2SAT 100
--- NOTE | 2017-09-17 17:21 | MB ---
cc: KIKI BARRAGAN DATE OF CONSULTATION: 09/17/2017. REASON FOR CONSULTATION: Pancreatic mass and liver metastases. PATIENT PROFILE: The patient is a 61-year white female. She is single. She has never been . She has two children, a daughter age 38 who lives with her and a son age 44 who resides in [place]. 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 She lives in [place] with her daughter, four grandchildren, three dogs and one squirrel. She smokes half a pack of cigarettes per day and fu been doing this for forty years. She does not drink alcohol. She enjoys shopping, family and pets. HISTORY OF PRESENT ILLNESS: The patient is a 61-year-old female who was well until the past month when she developed lower chest discomfort and upper abdominal pain which worsened. She has had a weight loss of about 40 pounds since February, which she attributes to dental problems. The pain became severe precipitating a visit to the emergency room. She was discharged home and returned several days later because of continued pain. She had one episode of black stools. On 09/16/2017, she had a CT of the abdomen with IV contrast. The films were reviewed with the patient and her daughter. She has a mass in the mid-body of the pancreas measuring 3 cm. She has multiple metastatic lesions throughout the liver. She has periaortic adenopathy. She had a CT pulmonary angiogram on 09/16/2017. There is no evidence of pulmonary embolism. There is a 9 mm solitary pulmonary nodule in the posterior right lower lung. There is evidence of metastatic disease to the liver and there is a probable mass in the pancreas, which was better defined on the CT scan of the abdomen and pelvis. A gallbladder ultrasound on 09/16/2017 showed diffuse gallbladder wall thickening, metastatic disease to the liver and a 2.9 cm mass involving the pancreas. Additional laboratory studies include: On 09/17/2017, hemoglobin 12, white count 9700, platelets 286,000. An alpha fetoprotein is 3.2. CEA is 11.6. CA 19-9 is pending. A CA-125 is 128. Total bilirubin is 1.0. AST 57. ALT is 33. Alkaline phosphatase is 287. PAST SURGICAL HISTORY: 1. Surgery to the lumbosacral spine more than twenty years ago for disc disease. 2. Tubal ligation. 3. Removal of basal cell carcinoma, left leg, five years ago. PAST MEDICAL HISTORY: 1. Hypertension in the past when the patient had obesity. MEDICATIONS PRIOR TO ADMISSION: 1. Nexium. 2. Occasional ibuprofen. ALLERGIES: NONE. FAMILY HISTORY: The mother at age 86. The father of complications of diabetes at age 87. The patient has five sisters who are living, two brothers who are living and a brother who of small cell lung cancer and another brother who of a pancreatic cancer. REVIEW OF SYSTEMS: VISION: She has glasses for distance. HEARING: Hearing is decreased. CARDIOVASCULAR: No chest pain or palpitations, orthopnea, or paroxysmal nocturnal dyspnea. RESPIRATORY: No shortness of breath. GASTROINTESTINAL: Appetite diminished. Significant weight loss of about 40 pounds since February of 2017. She had one episode of black stools. GENITOURINARY: No dysuria, frequency, hematuria or vaginal bleeding. MUSCULOSKELETAL: She has had upper abdominal pain radiating to the back. NEUROLOGIC: No focal weakness. PHYSICAL EXAMINATION: GENERAL: The physical exam reveals a pleasant female. She is not in any acute distress. VITAL SIGNS: Blood pressure 130/80, respiratory rate 18, pulse 70, afebrile, 02 sat 100%. HEAD, EYES, EARS, NOSE, THROAT: Head is normocephalic. The sclerae and conjunctivae are normal. Oropharynx - no mucosal lesions. LYMPHATIC: There is no cervical, supraclavicular, axillary or inguinal adenopathy. BREASTS: Without masses. HEART: Regular rhythm. LUNGS: Clear without wheezes, rales or rhonchi. ABDOMEN: Abdomen soft. The liver is 2 to 3 cm below the right costal margin and minimally tender. Spleen not palpable. EXTREMITIES: No edema. MUSCULOSKELETAL: Mild muscle wasting. NEUROLOGIC: No focal weakness. Cognition and affect are normal. SKIN: Normal. ASSESSMENT: The patient is a 61-year-old female. She has a pancreatic mass and multiple liver metastases. This is most consistent with an adenocarcinoma of the pancreas metastatic to the liver. RECOMMENDATIONS: 1. Needle biopsy of liver lesion. 2. Await results of the CA 19-9. 3. I spoke to her about treatment for metastatic pancreatic cancer assuming that the biopsy is consistent with metastatic pancreatic cancer. The treatment would involve FOLFIRINOX. She will need a port. I am going to place orders for a port. I would like to proceed with a liver biopsy as soon as possible. Once I have a diagnosis treatment can be started. At the moment, the evidence is highly suggestive of pancreatic cancer, but I will need a pathology report consistent with this before I can initiate therapy. The results of treatment were discussed with the patient and daughter. Approximately half of the patients will not have a satisfactory response. Others can have a dramatic and occasionally durable response to chemotherapy. MD CASSIDY Sharma/COOPER /12:00 PM /4:54 PM MTDD
[2017-09-17 20:00] VITALS: BP 141/72; PULSE 76; RESP 18; TEMP 99.5; O2SAT 96
[2017-09-18] VITALS (11 sets, daily range): BP systolic 136–145; BP diastolic 67–82; PULSE 67–81; RESP 18; TEMP 97.8–99; O2SAT 96–99
[2017-09-18] MEDS: ACETAMINOPHEN/HYDROcodone 325 MG/5 MG TAB PO PRN (00:45)
[2017-09-18] MEDS: LACTATED RINGER'S 1000 ML INJ 1,000 ML IV SCH ×3 (01:45→21:44)
--- NOTE | 2017-09-18 12:09 | PD.ONC.PN ---
Subjective Subjective Remarks Afebrile Pt c/o nausea. Denies abdominal pain Also reports she feels like she is constipated Objective Data Date Time Temp Pulse Resp B/P (MAP) Pulse Ox O2 Delivery O2 Flow Rate FiO2 09/18/17 08:11 98.3 81 18 136/78 (97) 98 09/18/17 04:00 97.8 67 18 139/71 (93) 96 09/18/17 00:00 99.0 72 18 141/67 (91) 96 09/17/17 20:00 99.5 76 18 141/72 (95) 96 09/17/17 18:36 18 09/17/17 16:00 99.3 80 18 151/76 (101) 100 Result Diagram: 09/17/17 0711 09/17/17 0711 Administered Medications Medications (Trade) Dose Ordered Sig/Marilyn Route PRN Reason Start Time Stop Time Status Last Admin Dose Admin Lactated Ringer's 1,000 ml @ 84 mls/hr [id number] IV 09/16/17 14:00 09/17/17 06:41 Pantoprazole Sodium (Protonix Inj) 40 mg Q24H IV PUSH 09/16/17 14:00 09/17/17 14:03 Acetaminophen/ Hydrocodone Bitart (Early 5-325 Mg) 1 tab Q6H PRN PO pain 09/16/17 18:45 09/18/17 00:45 Objective Remarks GENERAL: Older female walking around her room on approach on no obvious distress. SKIN: Warm and dry. HEAD: Normocephalic. EYES: No scleral icterus. No injection or drainage. NECK: Supple, trachea midline. No JVD or lymphadenopathy. CARDIOVASCULAR: Regular rate and rhythm without murmurs. RESPIRATORY: Clear posteriorly. Breathing unlabored at rest. GASTROINTESTINAL: Abdomen soft, non-tender, nondistended. EXTREMITIES: No cyanosis, or edema. MUSCULOSKELETAL: Adequate muscle tone. NEUROLOGICAL: No obvious focal deficit. Awake, alert, and oriented x3. Assessment/Plan Assessment 61 y/o female who presents with epigastric pain and found to have a pancreatic mass Plan 1. CA19-9 is greater than 28,000 which further supports the diagnosis of pancreatic cancer 2. Plan to place an Bjhgru-s-Htaj and get a CT-guided liver biopsy for official diagnosis in the am 3. Add on Zofran for complaints of nausea as well as milk of magnesia for mild constipation Attending Statement patient for the most part comfortable and exam is unchanged. the Ca19-9 in this setting is virtually diagnostic of pancreatic cancer. Will proceed with liver bx and port placement and after this is done would discharge home with follow up with me as an outpatient. will hopefully be able to begin chemotherapy within the next 10 days. Yamilet Shelton Sep 18, 2017 12:09 Brandon Moser MD Sep 18, 2017 17:13
[2017-09-18] MEDS ORDERED: ONDANSETRON HCL 4 MG/2 ML VIAL IV PUSH PRN (12:15)
[2017-09-18] MEDS ORDERED: MAGNESIUM HYDROXIDE SUSP 30 ML CUP PO PRN (12:15)
[2017-09-18] MEDS: PANTOPRAZOLE SODIUM 40 MG VIAL IV PUSH SCH (12:23)
[2017-09-18] MEDS: DOCUSATE SODIUM 50 MG/SENNA 8.6 MG TAB PO SCH ×2 (13:00→21:44)
--- NOTE | 2017-09-18 15:02 | HHI.PR ---
Subjective Remarks Follow-up for abdominal pain and pancreatic mass Patient had no complaints. She has not had a bowel movement for 2 days. Pain in epigastric area. She stated pain is better controlled. Positive for nausea but no emesis. Objective Vitals Vital Signs Date Time Temp Pulse Resp B/P (MAP) Pulse Ox O2 Delivery O2 Flow Rate FiO2 09/18/17 13:00 98.5 76 18 142/67 (92) 99 09/18/17 08:11 98.3 81 18 136/78 (97) 98 09/18/17 04:00 97.8 67 18 139/71 (93) 96 09/18/17 00:00 99.0 72 18 141/67 (91) 96 09/17/17 20:00 99.5 76 18 141/72 (95) 96 09/17/17 18:36 18 09/17/17 16:00 99.3 80 18 151/76 (101) 100 I/O 09/17/17 09/17/17 09/17/17 09/18/17 09/18/17 09/18/17 07:00 15:00 23:00 07:00 15:00 23:00 Intake Total 859 ml 1300 ml Balance 859 ml 1300 ml Intake Oral 300 ml IV Total 859 ml 1000 ml # Voids 4 2 4 Result Diagram: 09/17/17 0711 09/17/17 07 Objective Remarks GENERAL: In no acute distress sitting in chair. CARDIOVASCULAR: Regular rate and rhythm without murmurs, gallops, or rubs. RESPIRATORY: Breath sounds equal bilaterally. No accessory muscle use. GASTROINTESTINAL: Abdomen soft, + TTP in epigastric area. nondistended. MUSCULOSKELETAL: No cyanosis, or edema. BACK: Nontender without obvious deformity. No CVA tenderness. Medications and IVs Current Medications Sodium Chloride (NS Flush) 2 ml UNSCH PRN IV FLUSH FLUSH AFTER USING IV ACCESS ; Start 09/16/17 at 11:15 Piperacillin Sod/ Tazobactam Sod 50 ml @ 100 mls/hr ONCE ONCE IV Last administered on 09/16/17at 13:09; Start 09/16/17 at 13:00; Stop 09/16/17 at 13:29 ; Status DC Sodium Chloride 250 ml @ 250 mls/hr BOLUS ONCE IV Last administered on at 15:16; Start 09/16/17 at 14:00; Stop 09/16/17 at 14:59; Status DC Lactated Ringer's 1,000 ml @ 84 mls/hr [id number] IV Last administered on at 06:41; Start 09/16/17 at 14:00 Diatrizoate Meglum/ Diatrizoate Sod ( Gastrozach Liq) 18 ml STK-MED ONCE .ROUTE Last administered on 09/16/17at 13:08; Start 09/16/17 at 13:02; Stop at 13:03; Status DC Pantoprazole Sodium (Protonix Inj) 40 mg Q24H IV PUSH Last administered on 09/18at 12:23; Start 09/16/17 at 14:00 Iohexol (Omnipaque 350 Inj) 95 ml STK-MED ONCE IVCONTRAST Last administered on 09/16/17at 15:53; Start 09/16/17 at 15:53; Stop 09/16/17 at 15:54; Status DC Acetaminophen/ Hydrocodone Bitart ([place] 5-325 Mg) 1 tab Q6H PRN PO pain Last administered on 09/18/17at 00:45; Start 09/16/17 at 18:45 Ondansetron HCl (Zofran Inj) 4 mg Q6HR PRN IV PUSH nausea Last administered on 09/18/17at 12:26; Start 09/18/17 at 12:15 Magnesium Hydroxide (Milk Of Magnesia Liq) 30 ml DAILY PRN PO mild constipation ; Start 09/18/17 at 12:15 Senna/Docusate Sodium (Kristen-Colace) 1 tab BID PO ; Start 09/18/17 at 13:00 A/P Assessment and Plan This is a 61-year-old female who presented with abdominal pain Abdominal pain -most likely secondary to pancreatic mass -Pain is controlled current regimen. Continue current regimen. Pancreatic mass -Abdominal and pelvis CT reviewed showing a mass in the mid body of the pancreas characteristic for primary pancreatic carcinoma. There were also multiple lesions in the liver. -CTA reviewed showing pulmonary nodule in the right lower lung, diffuse liver metastatic disease and probable mass in the pancreas. -Chest x-ray reviewed showing no acute disease. -CA19-9 is greater than 28,850 -GI consulted and following patient. -Oncologist, Dr. Moser is following. -Patient scheduled for a CT-guided liver biopsy and Iuvizj-n-Daez placement tomorrow. DVT prophylaxis: SCDs. Discharge Planning Patient scheduled for liver biopsy and Duvtec-i-Cgto placement tomorrow. Sarah Payne MD Sep 18, 2017 15:02
[2017-09-19] VITALS (21 sets, daily range): BP systolic 133–158; BP diastolic 53–87; PULSE 65–97; RESP 16–20; TEMP 98.4–99; O2SAT 96–100
[2017-09-19] MEDS: ACETAMINOPHEN/HYDROcodone 325 MG/5 MG TAB PO PRN ×3 (03:07→18:23)
--- NOTE | 2017-09-19 08:25 | HHI.PR ---
Subjective Remarks Feels fairl;y well./No n/v/d/c. Pain is controlled by meds. Feels anxious and also wants sleeping aid at night. No fever or chills. No cough. Objective Vitals Vital Signs Date Time Temp Pulse Resp B/P (MAP) Pulse Ox O2 Delivery O2 Flow Rate FiO2 09/19/17 07:05 75 09/19/17 06:00 97 09/19/17 05:14 66 09/19/17 04:07 73 09/19/17 03:50 98.5 75 16 135/71 (92) 98 09/19/17 03:03 91 09/19/17 02:07 68 09/19/17 01:07 75 09/19/17 00:48 99.0 79 16 146/66 (92) 99 09/19/17 00:03 74 09/18/17 23:04 76 09/18/17 22:01 79 09/18/17 21:03 77 09/18/17 20:50 98.5 73 18 143/70 (94) 98 09/18/17 20:02 79 09/18/17 19:09 98.6 80 18 145/82 (103) 98 09/18/17 19:07 81 09/18/17 13:00 98.5 76 18 142/67 (92) 99 I/O 09/18/17 09/18/17 09/18/17 09/19/17 09/19/17 09/19/17 06:59 14:59 22:59 06:59 14:59 22:59 Intake Total 2080 ml Balance 2080 ml Intake Oral 1080 ml IV Total 1000 ml # Voids 4 3 Result Diagram: 09/17/17 0711 09/17/17 0711 Imaging Last Impressions Chest X-Ray 09/16/17 1112 Signed Impressions: Service Date/Time: Saturday, September 16, 2017 11:15 - CONCLUSION: No acute disease. Micky Esqueda MD FACR Gall Bladder Ultrasound 09/16/17 0000 Signed Impressions: Service Date/Time: Saturday, September 16, 2017 11:57 - CONCLUSION: 1. The gallbladder demonstrates fairly diffuse gallbladder wall thickening with a trace amount of pericholecystic fluid. The gallbladder does appear decompressed with no definite gallstones seen. 2. There are at least 2 lesions identified within the liver. The larger lesion is increased echogenicity and probably represents hemangioma. There is a second lesion measuring 1.1 x 1.2 x 0.8 CM which is indeterminate. 3. There is a 2.4 x 2.9 x 2.3 cm hypoechoic mass projecting off the pancreas. CT imaging of the abdomen is warranted for further assessment. John Esqueda MD CT Angiography 09/16/17 Signed Impressions: Service Date/Time: Saturday, September 16, 2017 15:38 - CONCLUSION: 1. No evidence of pulmonary embolism. 2. 9 mm solitary pulmonary nodule posterior right lower lung 3. Diffuse liver metastatic disease. 4. Probable mass in the body of the pancreas suggestive of neoplastic disease. This will be further evaluated with a CT scan of the abdomen and pelvis. Miquel Villafana MD Abdomen/Pelvis CT 09/16/17 Signed Impressions: Service Date/Time: Saturday, September 16, 2017 15:38 - CONCLUSION: 1. There is a mass in the mid body of the pancreas measuring 3.0 x 2.5 cm characteristic for primary pancreatic carcinoma. 2. Multiple low-density lesions throughout the liver characteristic for diffuse liver metastatic disease. 3. Para-aortic adenopathy characteristic of neoplastic disease. 4. Chronic gallbladder disease. No biliary tract obstruction. 5. Small amount of fluid is seen in the cul-de-sac. 6. Pelvic congestion syndrome. Miquel Villafana MD Objective Remarks GENERAL: In no acute distress sitting in chair. CARDIOVASCULAR: Regular rate and rhythm without murmurs, gallops, or rubs. RESPIRATORY: Breath sounds equal bilaterally. No accessory muscle use. GASTROINTESTINAL: Abdomen soft, + TTP in epigastric area. nondistended. MUSCULOSKELETAL: No cyanosis, or edema. BACK: Nontender without obvious deformity. No CVA tenderness. A/P Assessment and Plan This is a 61-year-old female who presented with abdominal pain Abdominal pain most likely secondary to pancreatic mass Pain is controlled current regimen. Continue current regimen. Pancreatic mass Abdominal and pelvis CT reviewed showing a mass in the mid body of the pancreas characteristic for primary pancreatic carcinoma. There were also multiple lesions in the liver. CTA reviewed showing pulmonary nodule in the right lower lung, diffuse liver metastatic disease and probable mass in the pancreas. Chest x-ray reviewed showing no acute disease. CA19-9 is greater than 28,850 GI consulted and following patient. Oncologist, Dr. Moser is following. Patient scheduled for a CT-guided liver biopsy and Gbrdvz-d-Lktv placement DVT prophylaxis: SCDs. Discharge Planning Patient scheduled for liver biopsy and Otswre-d-Bovu placement 09/19/17 Plan to Dc today after CT guided liver bx and port placement. To follow up as OP with PCP and consultants Veronica Carter MD Sep 19, 2017 08:25
[2017-09-19] MEDS ORDERED: ceFAZolin 2 GM PREMIX 50 ML IV SCH (08:45)
[2017-09-19] MEDS ORDERED: VANCOMYCIN INJ 1,000 MG in SODIUM CHLOR 0.9% 250 ML INJ 250 ML IV SCH (08:45)
[2017-09-19] MEDS: DOCUSATE SODIUM 50 MG/SENNA 8.6 MG TAB PO SCH (09:00)
[2017-09-19 10:37] LABS: CALCIUM 9.5 MG/DL (8.5-10.1); CREATININE 0.5 MG/DL (0.50-1.00)
--- NOTE | 2017-09-19 10:53 | PD.ONC.PN ---
Subjective Subjective Remarks feeling well. contemplating going to [facility] [place] to see the "best of the best" Objective Data Date Time Temp Pulse Resp B/P (MAP) Pulse Ox O2 Delivery O2 Flow Rate FiO2 09/19/17 08:00 98.4 72 16 145/72 (96) 98 09/19/17 07:05 75 09/19/17 06:00 97 09/19/17 05:14 66 09/19/17 04:07 73 09/19/17 03:50 98.5 75 16 135/71 (92) 98 09/19/17 03:03 91 09/19/17 02:07 68 09/19/17 01:07 75 09/19/17 00:48 99.0 79 16 146/66 (92) 99 09/19/17 00:03 74 09/18/17 23:04 76 09/18/17 22:01 79 09/18/17 21:03 77 09/18/17 20:50 98.5 73 18 143/70 (94) 98 09/18/17 20:02 79 09/18/17 19:09 98.6 80 18 145/82 (103) 98 09/18/17 19:07 81 09/18/17 13:00 98.5 76 18 142/67 (92) 99 Result Diagram: 09/17/17 0711 09/19/17 0931 Laboratory Results Laboratory Tests Test 09/19/17 09:31 Blood Urea Nitrogen 5 MG/DL Creatinine 0.50 MG/DL Random Glucose 111 MG/DL Calcium Level 9.5 MG/DL Sodium Level 138 MEQ/L Potassium Level 4.0 MEQ/L Chloride Level 102 MEQ/L Carbon Dioxide Level 30.0 MEQ/L Anion Gap 6 MEQ/L Estimat Glomerular Filtration Rate 125 ML/MIN Administered Medications Medications (Trade) Dose Ordered Sig/Marilyn Route PRN Reason Start Time Stop Time Status Last Admin Dose Admin Lactated Ringer's 1,000 ml @ 84 mls/hr [id number] IV 09/16/17 14:00 09/18/17 21:44 Pantoprazole Sodium (Protonix Inj) 40 mg Q24H IV PUSH 09/16/17 14:00 09/18/17 12:23 Acetaminophen/ Hydrocodone Bitart ([place] 5-325 Mg) 1 tab Q6H PRN PO pain 09/16/17 18:45 09/19/17 03:07 Ondansetron HCl (Zofran Inj) 4 mg Q6HR PRN IV PUSH nausea 09/18/17 12:15 09/18/17 12:26 Senna/Docusate Sodium (Kristen-Colace) 1 tab BID PO 09/18/17 13:00 09/18/17 21:44 Objective Remarks GENERAL: Well-nourished, well-developed patient. SKIN: Warm and dry. HEAD: Normocephalic. EYES: No scleral icterus. No injection or drainage. NECK: Supple, trachea midline. No JVD or lymphadenopathy. LYMPHATIC: No adenopathy. CARDIOVASCULAR: Regular rate and rhythm without murmurs. RESPIRATORY: Breath sounds equal bilaterally. No accessory muscle use. GASTROINTESTINAL: mild right upper quadrant tenderness EXTREMITIES: No cyanosis, or edema. MUSCULOSKELETAL: Adequate muscle tone. NEUROLOGICAL: No obvious focal deficit. Awake, alert, and oriented x3. PSYCHIATRIC: Appropriate mood and affect; insight and judgment normal. Assessment/Plan Assessment 61 y/o female who presents with epigastric pain and found to have a pancreatic mass Plan 1. CA19-9 is greater than 28,000 which further supports the diagnosis of pancreatic cancer 2. Plan place Kjngjq-s-Fpin and obtain a CT-guided liver biopsy for official diagnosis this am. 3. can go home after above if stable with outpatient follow up with me. I advised her to use [place], [facility], or [place] for second opinion rather then go to [facility]. Brandon Moser MD Sep 19, 2017 10:53
[2017-09-19] MEDS ORDERED: TEMA15CA PO (11:22)
[2017-09-19] MEDS ORDERED: HYDR-3516 PO (11:22)
[2017-09-19] MEDS ORDERED: LORA-392 PO (11:22)
[2017-09-19] MEDS ORDERED: NEXI40CA PO (11:22)
--- NOTE | 2017-09-19 11:22 | HHI.DS ---
Discharge Summary Admission Date Sep 16, 2017 at 12:50 Discharge Date: Sep 19, 2017 Admitting Diagnosis acute cholecystitis (1) Lung mass ICD Code: R91.8 - Other nonspecific abnormal finding of lung field (2) Liver mass ICD Code: R16.0 - Hepatomegaly, not elsewhere classified (3) Liver metastases ICD Code: C78.7 - Secondary malignant neoplasm of liver and intrahepatic bile duct Procedures none Brief History - From Admission 61-year-old white female being admitted for acute cholecystitis as well as melena. Patient reports being in her usual state of health until about a few weeks ago when she began experiencing vague epigastric pain and some chest pain. She went to her PCP and was referred for outpatient workup including a chest x-ray, stress test, and a possible EGD. Only the chest x-ray has been performed but the other 2 tests are still scheduled as an outpatient for a later date. Patient did come to the emergency department some time last week for the original onset of these symptoms and was discharged home. She does not think it is her heart. She reports that her epigastric pain and chest pain are not actually induced by eating nor are they consistently reproduced by position changes. Patient does think that some of her chest pain happens when she lifts up heavy objects at work. She says she was prescribed Nexium and did not notice any difference in her chest pain and epigastric pain. She decided come back to the emergency room earlier this morning due to a new onset of right- sided abdominal pain. Again this pain was not necessarily food related. Patient does note that for the last 2 weeks she's had intermittent black stools. She had taken Pepto-Bismol in response to this new finding as well with no changes. Patient does report taking ibuprofen occasionally, last time she took it she claims was 3 weeks ago. The emergency room, the patient's d-dimer was noted to be slightly elevated and her gallbladder ultrasound showed gallbladder wall thickening as well as a possible pancreatic mass. Vital signs otherwise remained stable. CBC/BMP: 09/17/17 0711 09/19/17 0931 Significant Findings Laboratory Tests Test 09/16/17 12:10 09/17/17 07:11 09/19/17 09:31 Urine Ketones TRACE mg/dL (NEG) Urine Mucus FEW /lpf (OCC) Mean Corpuscular Hemoglobin 26.5 PG (27.0-34.0) Neutrophils (%) (Auto) 71.5 % (16.0-70.0) Blood Urea Nitrogen 5 MG/DL (7-18) 5 MG/DL (7-18) Creatinine 0.42 MG/DL (0.50-1.00) Albumin 2.8 GM/DL (3.4-5.0) Alkaline Phosphatase 287 U/L (45-117) Aspartate Amino Transf (AST/SGOT) 57 U/L (15-37) Carcinoembryonic Antigen 11.6 NG/ML (0.2-5.0) CA 19-9 Antigen 14774.5 U/ML (0.0-35.0) CA 125 Antigen 128.4 U/ML (0.0-30.2) Random Glucose 111 MG/DL (74-106) Imaging Last Impressions Port Line Insertion 09/19/17 0000 Signed Impressions: Service Date/Time: Tuesday, September 19, 2017 13:38 - CONCLUSION: Uncomplicated ultrasound and fluoroscopic guided implanted central venous port catheter placement as described in detail above. An 8 Romansh Power port was placed. Fareed Mosqueda MD Liver Biopsy CT 09/17/17 0000 Signed Impressions: Service Date/Time: Tuesday, September 19, 2017 16:09 - CONCLUSION: Uncomplicated CT guided biopsy of multiple liver masses in the right lobe. Dylan Sexton MD Chest X-Ray 09/16/17 1112 Signed Impressions: Service Date/Time: Saturday, September 16, 2017 11:15 - CONCLUSION: No acute disease. Micky Esqueda MD FACR Gall Bladder Ultrasound 09/16/17 0000 Signed Impressions: Service Date/Time: Saturday, September 16, 2017 11:57 - CONCLUSION: 1. The gallbladder demonstrates fairly diffuse gallbladder wall thickening with a trace amount of pericholecystic fluid. The gallbladder does appear decompressed with no definite gallstones seen. 2. There are at least 2 lesions identified within the liver. The larger lesion is increased echogenicity and probably represents hemangioma. There is a second lesion measuring 1.1 x 1.2 x 0.8 CM which is indeterminate. 3. There is a 2.4 x 2.9 x 2.3 cm hypoechoic mass projecting off the pancreas. CT imaging of the abdomen is warranted for further assessment. John Esqueda MD CT Angiography 09/16/17 0000 Signed Impressions: Service Date/Time: Saturday, September 16, 2017 15:38 - CONCLUSION: 1. No evidence of pulmonary embolism. 2. 9 mm solitary pulmonary nodule posterior right lower lung 3. Diffuse liver metastatic disease. 4. Probable mass in the body of the pancreas suggestive of neoplastic disease. This will be further evaluated with a CT scan of the abdomen and pelvis. Miquel Villafana MD Abdomen/Pelvis CT 09/16/17 0000 Signed Impressions: Service Date/Time: Saturday, September 16, 2017 15:38 - CONCLUSION: 1. There is a mass in the mid body of the pancreas measuring 3.0 x 2.5 cm characteristic for primary pancreatic carcinoma. 2. Multiple low-density lesions throughout the liver characteristic for diffuse liver metastatic disease. 3. Para-aortic adenopathy characteristic of neoplastic disease. 4. Chronic gallbladder disease. No biliary tract obstruction. 5. Small amount of fluid is seen in the cul-de-sac. 6. Pelvic congestion syndrome. Miquel Villafana MD PE at Discharge GENERAL: In no acute distress sitting in chair. CARDIOVASCULAR: Regular rate and rhythm without murmurs, gallops, or rubs. RESPIRATORY: Breath sounds equal bilaterally. No accessory muscle use. GASTROINTESTINAL: Abdomen soft, + TTP in epigastric area. nondistended. MUSCULOSKELETAL: No cyanosis, or edema. BACK: Nontender without obvious deformity. No CVA tenderness. Hospital Course This is a 61-year-old female who presented with abdominal pain Abdominal pain most likely secondary to pancreatic mass Pain is controlled current regimen. Continue current regimen. Pancreatic mass Abdominal and pelvis CT reviewed showing a mass in the mid body of the pancreas characteristic for primary pancreatic carcinoma. There were also multiple lesions in the liver. CTA reviewed showing pulmonary nodule in the right lower lung, diffuse liver metastatic disease and probable mass in the pancreas. Chest x-ray reviewed showing no acute disease. CA19-9 is greater than 28,850 GI consulted and following patient. Oncologist, Dr. Moser is following, to follow up as OP. Had CT-guided liver biopsy and Eqvrpm-x-Otka placement 09/19/17, Discharged thereafter. To follow up as OP with PCP and consultants Pt Condition on Discharge: Stable Discharge Disposition: Discharge Home Discharge Time: > 30 minutes Discharge Instructions DIET: Follow Instructions for: As Tolerated, No Restrictions Activities you can perform: Regular-No Restrictions Follow up Referrals: Oncology - 1 Week with Brandon Moser MD PCP Follow-up - 2-3 Days New Medications: Lorazepam (Ativan) 0.5 Mg Tab 0.5 MG PO Q8H PRN for ANXIETY AND/OR AGITATION, #10 TAB 0 Refills Temazepam (Temazepam) 15 Mg Cap 15 MG PO HS PRN for INSOMNIA, #30 CAP 0 Refills Hydrocodone/Acetaminophen (Hydrocodone-Acetamin 5-325 mg) 5 Mg-325 Mg Tablet 1 TAB PO Q6H PRN for pain, #30 MG Continued Medications: Esomeprazole DR (Nexium) 40 Mg Capdr 40 MG PO DAILY for gerd, #60 CAP 0 Refills (This prescription has been renewed) Veronica Carter MD Sep 19, 2017 11:22
[2017-09-19] MEDS: LACTATED RINGER'S 1000 ML INJ 1,000 ML IV SCH (11:51)
[2017-09-19] MEDS ORDERED: MIDAZOLAM HCL 2 MG/2 ML VIAL ONE ×2 (13:35→15:48)
[2017-09-19] MEDS: PANTOPRAZOLE SODIUM 40 MG VIAL IV PUSH SCH (13:39)
--- NOTE | 2017-09-19 14:26 | PD.RAD ---
Post Procedure Progress Note Pre Procedure Diagnosis: (1) Liver mass Post Procedure Diagnosis: (1) Liver mass Procedure Date: Sep 19, 2017 Supervising Radiologist: Fareed Mosqueda Proceduralist/Assist: Franklyn Boyle RT(R), Tania Taylor RT(R) Anesthesia: Conscious Sedation Plan of Activity Patient to Unit: ROPU Patient Condition: Good See PACS Report for procedural detail/treatment Fareed Mosqueda MD Sep 19, 2017 14:26
[2017-09-19] MEDS ORDERED: LIDOCAINE HCL 1% 20 ML VIAL ONE (15:53)
--- NOTE | 2017-09-19 15:58 | RADRPT ---
EXAM DATE/TIME: 09/19/2017 13:38 [facility] COMPARISON: No previous studies available for comparison. INDICATIONS : Patient presents with pancreatic mass in need of port placement for chemotherapy treatment. MEDICAL HISTORY : Skin cancer of left leg Pancreatic mass SURGICAL HISTORY : History of tubal ligation ENCOUNTER: Initial ACUITY: 2 weeks PAIN SCORE: 4/10 LOCATION: Abdominal pain. FLUORO TIME: 0.1 minutes IMAGE SERIES: 0 SEDATION TIME: 30 minutes ACCESS: Right internal jugular vein SEDATION: 1.) 5 mg midazolam (Versed) IV 2.) 0.42 mcg fentanyl (Sublimaze) IV Prophylactic antibiotics were administered with appropriate pre-procedure timing. Vancomycin within 2 hours of procedure, Ancef (or alternative) within 1 hour of procedure. DEVICE: 1. 8 Italian single lumen Bard Power Port PROCEDURE : 1. Continuous pulse oximetry and EKG monitoring. 2. Intravenous conscious sedation. 3. Ultrasound guidance for venous access. 4. Fluoroscopic guided implantable central venous port placement. The patient was placed supine. The neck was prepped in sterile fashion. Full sterile technique was u sed, including cap, mask, sterile gloves and gown, and a large sterile sheet. Hand hygiene and 2% ch lorhexidine Betadine was utilized per protocol for cutaneous antisepsis with appropriate dry time for site. Sterile gel and sterile probe cover were utilized for ultrasound guidance. The skin and sub cutaneous tissues were infiltrated with local anesthetic solution. Under direct ultrasound guidance, central venous access was accomplished in the targeted vessel. The ultrasound images depicting access guidance were stored and saved to PACS for permanent record. A s ubcutaneous pocket was created using blunt dissection. The port was introduced to the pocket. The c atheter tubing was fed through a subcutaneous tunnel to the venotomy site. The catheter tubing was c ut to a suitable length and then was introduced through a valved Peel-Away sheath and positioned with catheter tubing tip at the cavo-atrial junction level. The pocket incision was closed with subcutic ular Vicryl suture. Steri-Strips were applied. The port was flushed and locked with heparin solutio n per protocol. Sterile dressing was applied to the site. The patient tolerated the procedure well. Conscious sedation was performed with the prescribed dosages and duration as above in the presence of an independent trained radiology nurse to assist in the monitoring of the patient. EKG and oximetry remained stable throughout the procedure. The patient tolerated the procedure well and there were no complications. The patient was sent to post anesthesia recovery in stable condition. CONCLUSION: Uncomplicated ultrasound and fluoroscopic guided implanted central venous port catheter placement as described in detail above. An 8 Italian Power port was placed. Fareed Mosqueda MD on September 19, 2017 at 15:56 Board Certified Radiologist. This report was verified electronically.
--- NOTE | 2017-09-19 16:25 | PD.RAD ---
Post CT Procedure Prog Note Pre Procedure Diagnosis: (1) Liver metastases Post Procedure Diagnosis: (1) Liver metastases Procedure Date: Sep 19, 2017 Supervising Radiologist: Dylan Sexton Proceduralist/Assist: virginia terry Estimated blood loss: none Anesthesia: Conscious Sedation Plan of Activity Patient to Unit: ROPU Patient Condition: Good See PACS Report for procedural detail/treatment Dylan Sexton MD Sep 19, 2017 16:25
[2017-09-19 19:51] LABS: HEMATOCRIT 35.9 % (35.0-46.0); HEMOGLOBIN 11.6 GM/DL (11.6-15.3); MEAN CELL VOLUME 83.5 FL (80.0-100.0); MEAN CORPUSCULAR HEMOGLOBIN 27.1 PG (27.0-34.0); MEAN CORPUSCULAR HGB CONC 32.4 % (32.0-36.0); MEAN PLATELET VOLUME 8.1 FL (7.0-11.0); PLATELET COUNT 297 TH/MM3 (150-450); RED CELL DISTRIBUTION WIDTH 14.4 % (11.6-17.2); WHITE BLOOD COUNT 10.8 TH/MM3 (4.0-11.0)
--- NOTE | 2017-09-20 08:11 | RADRPT ---
EXAM DATE/TIME: 09/19/2017 16:09 [facility] COMPARISON: No previous studies available for comparison. INDICATIONS : Mass. SEDATION TIME: 30 minutes BIOPSY SITE: liver MEDICATION(S): 1.) 2 mg midazolam (Versed) IV 2.) 100 mcg fentanyl (Sublimaze) IV DEVICE(S): 1.) 18 gauge Temno core biopsy needle MEDICAL HISTORY : skin cancer SURGICAL HISTORY : Tubal ligation. section. ENCOUNTER: Initial ACUITY: 1 day PAIN SCORE: 0/10 LOCATION: Bilateral abdomen A total of three core specimen(s) were obtained and sent to the laboratory for pathologic evaluation. PROCEDURE: 1. CT guided biopsy. 2. Conscious sedation with continuous EKG and oximetry monitoring. 3. EKG and oximetry remained stable throughout the procedure. Prior to the procedure informed consent was obtained. Any appropriate prior imaging studies were rev iewed. Using automated exposure control and adjustment of the mA and/or kV according to patient size, radiat ion dose was kept as low as reasonably achievable to obtain optimal diagnostic quality images. DICOM format image data is available electronically for review and comparison. The site was prepped in a sterile fashion. Full sterile technique was used, including cap, mask, shannon rile gloves and gown and a large sterile sheet. Hand hygiene and 2% chlorhexidine and/or betadine/al cohol prep was utilized per protocol for cutaneous antisepsis. The skin and subcutaneous tissues wer e infiltrated with local anesthetic solution. With CT guidance the previously identified target was localized. Biopsy was performed using the presc ribed needle as above. Adequate hemostasis was obtained with compression at the puncture site. Follow-up CT scan reveals no hemorrhage. The patient tolerated the procedure well and there were no complications. The patient was returned to the Radiology Outpatient Unit in stable condition. CONCLUSION: Uncomplicated CT guided biopsy of multiple liver masses in the right lobe. Dylan Sexton MD on September 20, 2017 at 8:08 Board Certified Radiologist. This report was verified electronically.
== END 2017-09-19 21:19 | disposition home or self-care (01) | DRG 436 ==
LOC: PHED 10:39 → PHEDA 12:50 → PH3B 13:40 → HCIN 09-17 18:59
PROVIDERS: ADMIT Hospitalist; ATTEND Hospitalist
PROC: 0JH63WZ Insertion of Totally Implantable Vascular Access Device into Chest Subcutaneous Tissue and Fascia, Percutaneous Approach (ICD-10-PCS; principal; 2017-09-19)
PROC: 02HV33Z Insertion of Infusion Device into Superior Vena Cava, Percutaneous Approach (ICD-10-PCS; 2017-09-19)
PROC: B548ZZA Ultrasonography of Superior Vena Cava, Guidance (ICD-10-PCS; 2017-09-19)
PROC: 0FB03ZX Excision of Liver, Percutaneous Approach, Diagnostic (ICD-10-PCS; 2017-09-19)
DX: C25.1 Malignant neoplasm of body of pancreas (principal); K81.0 Acute cholecystitis; C78.7 Secondary malignant neoplasm of liver and intrahepatic bile duct; K92.1 Melena; R91.1 Solitary pulmonary nodule; R63.4 Abnormal weight loss; R68.81 Early satiety; R07.9 Chest pain, unspecified; K59.00 Constipation, unspecified; F17.200 Nicotine dependence, unspecified, uncomplicated; F32.9 Major depressive disorder, single episode, unspecified; F41.9 Anxiety disorder, unspecified; Z68.23 Body mass index [BMI] 23.0-23.9, adult; Z80.0 Family history of malignant neoplasm of digestive organs; Z80.1 Family history of malignant neoplasm of trachea, bronchus and lung; Z85.828 Personal history of other malignant neoplasm of skin
CPT/HCPCS: 36561; 47000; 71045; 71275; 74177; 76705; 76937; 77001; 77012; 80048; 80053; 81001; 82105; 82378; 83690; 84484; 85025; 85027; 85379; 86301; 86304; 88307; 88341; 88342; 93005; 99152; 99153; C1788; C9113; J1642; J2250; J2405; J2543; J3010; J3370; J7050; J7120; Q9963; Q9967

== ENCOUNTER 2017-10-17 10:36 | Emergency (ER) | payer BC ==
[~2017-10-17] VITALS: Ht 177.8 cm; Wt 66.5 kg
[~2017-10-17 10:36] MED LIST: HYDR-3516 PO; LORA-392 PO; NEXI40CA PO; TEMA15CA PO
[2017-10-17 10:39] VITALS: BP 105/66; PULSE 108; RESP 16; TEMP 97.5; O2SAT 98
[2017-10-17] MEDS ORDERED: SODIUM CHLOR 0.9% 1000 ML INJ 1,000 ML IV SCH (10:39)
[2017-10-17] MEDS ORDERED: SODIUM CHLORIDE 0.9% FLUSH 10 ML FLUSH IV FLUSH PRN (10:45)
[2017-10-17] MEDS ORDERED: ONDANSETRON HCL 4 MG/2 ML VIAL IVP ONE (10:45)
[2017-10-17] MEDS ORDERED: MORPHINE SULFATE 4 MG/ML INJ IV PUSH ONE (10:45)
[2017-10-17 10:46] VITALS: RESP 16; O2SAT 98
--- NOTE | 2017-10-17 10:48 | PD ---
HPI Chief Complaint: Pain: Acute or Chronic Time Seen by Provider: 10:39 Travel History International Travel<30 days: No Contact w/Intl Traveler<30days: No Traveled to known affect area: No History of Present Illness HPI Patient comes in complaining of diffuse abdominal pain and a 6 out of 10, associated with nausea despite using her Zofran at home. Per patient she states that she is on chemo, and this is currently her off week. Patient states that she has also been having diarrhea although not as much vomiting. Patient otherwise denies any medical history. Primary care is Dr. Mahoney No known drug allergy Past medical & surgical history significant for tubal ligation depression history previous tobacco history she no longer is a smoker. And current pancreatic CA history... Original diagnosis based on a CT scan performed by Dr. PATTEN on August 2017 where she is undergoing oncologic care at [facility] Past Medical History Anxiety: Yes Depression: Yes Cancer: Yes (SKIN) Cardiovascular Problems: No Diminished Hearing: No Genitourinary: No Musculoskeletal: No Neurologic: No Reproductive: No Respiratory: No Integumentary: Yes (SKIN CA LEFT LOWER LEG) Menopausal: Yes Tubal Ligation: Yes Past Surgical History Gynecologic Surgery: Yes (C SECTIONS ) Oral Surgery: Yes (titanium post) Social History Alcohol Use: No Tobacco Use: Yes (1PPD) Substance Use: No Allergies-Medications (Allergen,Severity, Reaction): Coded Allergies: No Known Allergies (Verified Allergy, Unknown, 10/17/17) Reported Meds & Prescriptions Reported Meds & Active Scripts Active Reported Nystatin Liq 100,000 unit/ml Susp 5 Ml SWISH-SWAL QID Esomeprazole DR 40 Mg Capdr 40 Mg PO DAILY Prochlorperazine Maleate 10 Mg Tab 10 Mg PO Q6H PRN Ondansetron Odt 4 Mg Tab 4 Mg SL Q8HR PRN Morphine ER (Morphine Sulfate) 15 Mg Tab 15 Mg PO Q8H [[place]ake Gold] 1 DIRECTED [L-Glutamine] DIRECTED Milk Thistle 500 Mg Capsule 1 Cap PO BID [L-Carnitine] 15 Ml PO BID Review of Systems General / Constitutional: No: Fever Eyes: No: Visual changes HENT: No: Headaches Cardiovascular: No: Chest Pain or Discomfort Respiratory: No: Shortness of Breath Gastrointestinal: Positive: Nausea, Diarrhea, Abdominal Pain Genitourinary: No: Dysuria Musculoskeletal: No: Pain Skin: No Rash Neurologic: No: Weakness Psychiatric: No: Depression Endocrine: No: Polydipsia Hematologic/Lymphatic: No: Easy Bruising Physical Exam Narrative GENERAL: SKIN: Warm and dry. HEAD: Atraumatic. Normocephalic. EYES: Pupils equal and round. No scleral icterus. No injection or drainage. ENT: No nasal bleeding or discharge. Mucous membranes pink and moist. NECK: Trachea midline. No JVD. CARDIOVASCULAR: Regular rate and rhythm. RESPIRATORY: No accessory muscle use. Clear to auscultation. Breath sounds equal bilaterally. GASTROINTESTINAL: Abdomen soft, non-tender, nondistended. MUSCULOSKELETAL: Extremities without clubbing, cyanosis, or edema. No obvious deformities. NEUROLOGICAL: Awake and alert. No obvious cranial nerve deficits. Motor grossly within normal limits. Five out of 5 muscle strength in the arms and legs. Normal speech. PSYCHIATRIC: Appropriate mood and affect; insight and judgment normal. Data Data Last Documented VS Vital Signs Date Time Temp Pulse Resp B/P (MAP) Pulse Ox O2 Delivery O2 Flow Rate FiO2 10/17/17 12:33 105 16 119/59 (79) 99 Room Air 10/17/17 10:39 97.5 Orders Orders Complete Blood Count With Diff (10/17/17 10:39) Comprehensive Metabolic Panel (10/17/17 10:39) Lipase (10/17/17 10:39) Urinalysis - C+S If Indicated (10/17/17 10:39) Iv Access Insert/Monitor (10/17/17 10:39) Ecg Monitoring (10/17/17 10:39) Oximetry (10/17/17 10:39) NPO (10/17/17 10:39) Morphine Inj (Morphine Inj) (10/17/17 10:45) Ondansetron Inj (Zofran Inj) (10/17/17 10:45) Sodium Chlor 0.9% 1000 Ml Inj (Ns 1000 M (10/17/17 10:39) Sodium Chloride 0.9% Flush (Ns Flush) (10/17/17 10:45) Ct Abd/Pel W Iv Contrast(Rout) (10/17/17 11:06) Iohexol 350 Inj (Omnipaque 350 Inj) (10/17/17 11:37) Labs Laboratory Tests Test 10/17/17 11:00 10/17/17 13:10 White Blood Count 4.1 TH/MM3 Red Blood Count 4.40 MIL/MM3 Hemoglobin 11.6 GM/DL Hematocrit 36.1 % Mean Corpuscular Volume 82.0 FL Mean Corpuscular Hemoglobin 26.4 PG Mean Corpuscular Hemoglobin Concent 32.2 % Red Cell Distribution Width 14.8 % Platelet Count 149 TH/MM3 Mean Platelet Volume 9.7 FL Neutrophils (%) (Auto) 61.6 % Lymphocytes (%) (Auto) 28.3 % Monocytes (%) (Auto) 6.7 % Eosinophils (%) (Auto) 1.7 % Basophils (%) (Auto) 1.7 % Neutrophils # (Auto) 2.4 TH/MM3 Lymphocytes # (Auto) 1.2 TH/MM3 Monocytes # (Auto) 0.3 TH/MM3 Eosinophils # (Auto) 0.1 TH/MM3 Basophils # (Auto) 0.1 TH/MM3 CBC Comment DIFF FINAL Differential Comment Blood Urea Nitrogen 16 MG/DL Creatinine 0.67 MG/DL Random Glucose 207 MG/DL Total Protein 6.5 GM/DL Albumin 2.4 GM/DL Calcium Level 8.9 MG/DL Alkaline Phosphatase 300 U/L Aspartate Amino Transf (AST/SGOT) 116 U/L Alanine Aminotransferase (ALT/SGPT) 147 U/L Total Bilirubin 1.5 MG/DL Sodium Level 136 MEQ/L Potassium Level 4.6 MEQ/L Chloride Level 99 MEQ/L Carbon Dioxide Level 28.3 MEQ/L Anion Gap 9 MEQ/L Estimat Glomerular Filtration Rate 89 ML/MIN Lipase 48 U/L Urine pH 5.0 Urine Protein NEG mg/dL Urine Glucose (UA) NEG mg/dL Urine Ketones NEG mg/dL Urine Occult Blood TRACE Urine Nitrite POS Urine Bilirubin NEG Urine Leukocyte Esterase NEG MDM Medical Decision Making Medical Screen Exam Complete: Yes Emergency Medical Condition: Yes Medical Record Reviewed: Yes Differential Diagnosis Rule out perforated bowel versus SBO versus ileus versus carcinoma pain Narrative Course Based on a CAT scan reviewed from August 2017 where it was found a pancreatic CA along with liver metastases..... Today patient will be rehydrated, pain managed and an attempt will be made to call the oncologist. Chemistry profile shows normal electrolytes with the exception of glucose of 207 normal kidney function and a normal lipase however there is a slight elevation of liver functions AST of 116, ALT of 147, alk phos of 300, total bilirubin 1.5. All of these are relatively consistent with previous labs collected back in August. CBC shows no leukocytosis no anemia and no left shift however there is a mild decrease in the platelet count of 149,000........... this is a decrease from September 11 when it was 352,000 On repeat CAT scan today radiologist reads it is a stable examination when compared to the previous CT scan a month ago. There is also noted multiple abnormal retroperitoneal and cassidy hepatis lymph nodes. The primary tumor site according to the radiologist is in the tail of the pancreas and has slightly decreased in size. After this thorough evaluation the conclusion is that this patient's abdominal pain is secondary to her pancreatic cancer with metastasis to liver lungs and also to retroperitoneal lymph nodes which may explain the extension of this pain past the epigastriUM Diagnosis Primary Impression: ABDOMINAL PAIN DUE TO PANCREATIC CANCER WITH METS Additional Impression: UTI Patient Instructions: General Instructions, Pancreatic Cancer (DC), Urinary Tract Infection in Women (DC) Scripts Nystatin Liq (Nystatin Liq) 100,000 unit/ml Susp 5 ML SWISH-SWAL QID for Infection, #200 ML 0 Refills Prov: Mahad Lee MD 10/17/17 Nitrofurantoin Monohydrate Macrocrystals (Macrobid) 100 Mg Capsule 100 MG PO BID for Infection for 7 Days, #14 CAP 0 Refills Prov: Mahad Lee MD 10/17/17 Disposition: 01 DISCHARGE HOME Condition: Stable Mahad Lee MD Oct 17, 2017 10:48
[2017-10-17] MEDS ORDERED: MILK500C2 PO (11:13)
[2017-10-17] MEDS ORDERED: [UNRECOGNIZED DRUG - CODE] PO (11:13)
[2017-10-17] MEDS ORDERED: ESOM1CAP16 PO (11:13)
[2017-10-17] MEDS ORDERED: MORP1TAB24 PO (11:13)
[2017-10-17] MEDS ORDERED: [UNRECOGNIZED DRUG - OTHER] (11:13)
[2017-10-17] MEDS ORDERED: NYST1000 SWISH-SWAL ×2 (11:13→14:02)
[2017-10-17] MEDS ORDERED: PROC10TA PO (11:13)
[2017-10-17] MEDS ORDERED: [UNRECOGNIZED DRUG - CODE] (11:13)
[2017-10-17] MEDS ORDERED: ONDA4TAB7 SL (11:13)
[2017-10-17 11:19] LABS: AUTOMATED NEUTROPHIL # 2.4 TH/MM3 (1.8-7.7); BASOPHIL # 0.1 TH/MM3 (0-0.2); BASOPHIL % 1.7 % (0.0-2.0); EOSINOPHIL # 0.1 TH/MM3 (0-0.4); EOSINOPHIL % 1.7 % (0.0-4.0); HEMATOCRIT 36.1 % (35.0-46.0); HEMOGLOBIN 11.6 GM/DL (11.6-15.3); LYMPH % 28.3 % (9.0-44.0); LYMPHOCYTE # 1.2 TH/MM3 (1.0-4.8); MEAN CORPUSCULAR HEMOGLOBIN 26.4 PG (27.0-34.0); MEAN CORPUSCULAR HGB CONC 32.2 % (32.0-36.0); MEAN PLATELET VOLUME 9.7 FL (7.0-11.0); MONO % 6.7 % (0.0-8.0); MONOCYTE # 0.3 TH/MM3 (0-0.9); NEUT % 61.6 % (16.0-70.0); PLATELET COUNT 149 TH/MM3 (150-450); RED CELL DISTRIBUTION WIDTH 14.8 % (11.6-17.2); WHITE BLOOD COUNT 4.1 TH/MM3 (4.0-11.0)
[2017-10-17 11:21] LABS: CHLORIDE 99 MEQ/L (98-107); SODIUM (NA) 136 MEQ/L (136-145)
[2017-10-17 11:25] LABS: ALBUMIN 2.4 GM/DL (3.4-5.0); BICARBONATE 28.3 MEQ/L (21.0-32.0); BLOOD UREA NITROGEN 16 MG/DL (7-18); CALCIUM 8.9 MG/DL (8.5-10.1); GLUCOSE,RANDOM 207 MG/DL (74-106)
[2017-10-17 11:28] LABS: ALT (GPT) 147 U/L (10-53); AST (GOT) 116 U/L (15-37); CREATININE 0.67 MG/DL (0.50-1.00); GLOMERULAR FILTRATION RATE 89 ML/MIN (>89)
[2017-10-17 11:30] LABS: TOTAL BILIRUBIN ADULT 1.5 MG/DL (0.2-1.0); TOTAL PROTEIN 6.5 GM/DL (6.4-8.2)
[2017-10-17 11:31] LABS: ALKALINE PHOSPHATASE 300 U/L (45-117)
[2017-10-17] MEDS ORDERED: IOHEXOL 350 MG/ML 10 ML VIAL (for RAD DIAG) IVCONTRAST ONE (11:37)
--- NOTE | 2017-10-17 12:25 | RADRPT ---
EXAM DATE/TIME: 10/17/2017 11:33 [facility] COMPARISON: CT ABDOMEN & PELVIS W CONTRAST, September 16, 2017, 15:38. INDICATIONS : Diffuse abdominal pain. IV CONTRAST: 95 cc Omnipaque 350 (iohexol) IV ORAL CONTRAST: No oral contrast ingested. RADIATION DOSE: 7.52 CTDIvol (mGy) MEDICAL HISTORY : Carcinoma, pancreas. Metastatic, liver. SURGICAL HISTORY : section. Tubal ligation.Back surgery. ENCOUNTER: Initial ACUITY: 2 days PAIN SCALE: 7/10 LOCATION: Bilateral pelvis abdomen TECHNIQUE: Volumetric scanning of the abdomen and pelvis was performed. Using automated exposure control and ad justment of the mA and/or kV according to patient size, radiation dose was kept as low as reasonably achievable to obtain optimal diagnostic quality images. DICOM format image data is available electro nically for review and comparison. FINDINGS: LOWER LUNGS: The visualized lower lungs are clear. LIVER: There are innumerable hypodense liver mass is with the largest in the right lobe measuring approximat alicja 3.7 cm. No significant change is appreciated. There is mild diffuse gallbladder wall edema with p ossible stones in the gallbladder. Portal vein is patent and narrowed. There is no dilation of the b iliary tree. SPLEEN: Normal size without lesion. PANCREAS: There is a hypodense mass in the pancreatic tail measuring 1.7 x 1.5 cm compared to 2.5 x 2.6 cm prev iously. There is a peripheral pancreatic atrophy. Head is within normal limits. KIDNEYS: Normal in size and shape. There is no mass, stone or hydronephrosis. ADRENAL GLANDS: Within normal limits. VASCULAR: There is no aortic aneurysm. There is moderate atherosclerotic disease. Collateral blood vessels are present. There is narrowing of the extrahepatic portal vein. BOWEL/MESENTERY: The stomach, small bowel, and colon demonstrate no acute abnormality. There is no free intraperitone al air. There is trace free fluid in the pelvis. ABDOMINAL WALL: Within normal limits. RETROPERITONEUM: There are small lymph nodes throughout the retroperitoneum, stable from the prior study and there are enlarged cassidy hepatis lymph nodes that narrow the portal vein. These findings are stable. BLADDER: No wall thickening or mass. REPRODUCTIVE: Within normal limits. There are engorged parametrial vessels, stable from the prior study. INGUINAL: There is no lymphadenopathy or hernia. MUSCULOSKELETAL: No acute osseous abnormality is seen. CONCLUSION: 1. Stable examination of the abdomen and pelvis compared to the prior study from one month ago. There are innumerable hypodense liver masses characteristic of metastatic disease. There are also multiple abnormal retroperitoneal and cassidy hepatis lymph nodes. 2. Stable trace free fluid in the pelvis. 3. The primary tumor site in the tail the pancreas has slightly decreased in size. Chino Flaherty MD on October 17, 2017 at 12:04 Board Certified Radiologist. This report was verified electronically.
[2017-10-17 12:33] VITALS: BP 119/59; PULSE 105; RESP 16; O2SAT 99
[2017-10-17 13:41] LABS: BILIRUBIN, URINE NEG (NEG); BLOOD, URINE TRACE (NEG); GLUCOSE,URINE NEG (NEG); KETONE, URINE NEG (NEG); NITRITE,URINE POS (NEG); URINE LEUKOCYTE ESTERASE NEG (NEG)
[2017-10-17 13:58] LABS: URINE COLOR YELLOW (YELLW/STRAW)
[2017-10-17 14:00] LABS: BACTERIA, URINE MOD /hpf; SQUAMOUS EPITHELIAL CELL URINE 0-5 /hpf (0-5)
[2017-10-17] MEDS ORDERED: MACR100C2 PO (14:02)
[2017-10-17] MEDS ORDERED: KETOROLAC TROMETHAMINE 30 MG/ML (IVP) VIAL IV PUSH ONE (14:30)
[2017-10-17] MEDS ORDERED: cefTRIAXone INJ 1,000 MG in SODIUM CHLORIDE 0.9% INJ 100 ML IV ONE (14:30)
[2017-10-17 15:10] VITALS: BP 102/60; PULSE 92; RESP 16; O2SAT 99
== END 2017-10-17 15:28 | disposition home or self-care (01) ==
LOC: PHED 10:36
DX: C25.9 Malignant neoplasm of pancreas, unspecified (principal); C78.7 Secondary malignant neoplasm of liver and intrahepatic bile duct; N39.0 Urinary tract infection, site not specified; F17.200 Nicotine dependence, unspecified, uncomplicated
CPT/HCPCS: 74177; 80053; 81001; 83690; 85025; 87077; 87086; 87186; 96361; 96374; 96375; 99284; J0696; J1885; J2270; J2405; J7030; Q9967

== ENCOUNTER 2018-01-02 09:56 | Emergency (ER) | payer BC ==
[~2018-01-02] VITALS: Ht 175.3 cm; Wt 61.0 kg
[~2018-01-02 09:56] MED LIST changes: +ESOM1CAP16 PO; -HYDR-3516 PO; -LORA-392 PO; +MACR100C2 PO; +MILK500C2 PO; +MORP1TAB24 PO; -NEXI40CA PO; +NYST1000 SWISH-SWAL; +ONDA4TAB7 SL; +PROC10TA PO; -TEMA15CA PO; +[UNRECOGNIZED DRUG - CODE]; +[UNRECOGNIZED DRUG - CODE] PO; +[UNRECOGNIZED DRUG - OTHER]
[2018-01-02 10:00] VITALS: BP 125/65; PULSE 78; RESP 14; TEMP 98.5; O2SAT 100
[2018-01-02] MEDS ORDERED: LYRI150C PO (10:40)
[2018-01-02] MEDS ORDERED: MAGN100T4 PO (10:40)
[2018-01-02] MEDS ORDERED: MILK300C PO (10:40)
[2018-01-02] MEDS ORDERED: PANT40TA3 PO (10:40)
[2018-01-02] MEDS ORDERED: VITA400T18 PO (10:40)
[2018-01-02] MEDS ORDERED: HYDR2TAB PO (10:40)
[2018-01-02] MEDS ORDERED: HYDR4TAB PO (10:40)
[2018-01-02] MEDS ORDERED: DULO1CAP2 PO (10:40)
[2018-01-02] MEDS ORDERED: MORPHINE SULFATE 8 MG/ML INJ IV PUSH ONE (11:00)
[2018-01-02] MEDS ORDERED: ONDANSETRON ODT 4 MG TAB PO ONE (11:00)
--- NOTE | 2018-01-02 11:02 | PD ---
HPI Chief Complaint: Pain: Acute or Chronic Time Seen by Provider: 10:47 Travel History International Travel<30 days: No Contact w/Intl Traveler<30days: No Traveled to known affect area: No History of Present Illness HPI 62yo F with PMH of pancreatic cancer with mets to liver and maybe lung on chemotherapy here with c/o abdominal pain that is worst today. Pain is epigastric and radiates to the back. Pt has been having nausea but no vomiting. Also has been having neuropathy in bilateral legs soon after she started chemotherapy and it is getting worst. Feel sharp pain, cold sensation but warm when we touch it. +Generalized weakness. Last chemo was this past Tuesday. Pt follows with oncologist group in [place] but wants to transfer to somewhere closer. PFSH Past Medical History Hx Anticoagulant Therapy: No Anxiety: Yes Depression: Yes Cancer: Yes (SKIN, PANCREATIC) Cardiovascular Problems: No Chemotherapy: Yes Diabetes: No Diminished Hearing: No Gastrointestinal Disorders: Yes (RECENT PAIN IN ABDOMEN ) Genitourinary: No Musculoskeletal: No Neurologic: Yes (Neuropathy, foot drop ) Reproductive: No Respiratory: No Integumentary: Yes (SKIN CA LEFT LOWER LEG) Tetanus Vaccination: > 5 Years Influenza Vaccination: Yes ?: Not Menopausal: Yes Tubal Ligation: Yes Past Surgical History Gynecologic Surgery: Yes (C SECTIONS ) Oral Surgery: Yes (titanium post) Social History Alcohol Use: No Tobacco Use: No Substance Use: No Allergies-Medications (Allergen,Severity, Reaction): Coded Allergies: No Known Allergies (Unverified , 01/02/18) Reported Meds & Prescriptions Reported Meds & Active Scripts Active Bactrim DS (Sulfamethoxazole-Trimethoprim) 800-160 Mg Tab 1 Tab PO BID Reported Mag Glycinate (Magnesium Glycinate) 100 Mg Tablet 4 Tab PO DAILY Vitamin E (Vitamin E Acid Succinate) 400 Unit Tablet 1 Tab PO DAILY Milk Thistle 150 Mg Cap 1 Cap PO DAILY Duloxetine DR (Duloxetine HCl) 30 Mg Capdr 30 Mg PO DAILY Lyrica (Pregabalin) 150 Mg Cap 150 Mg PO BID Pantoprazole (Pantoprazole Sodium) 40 Mg Tab 40 Mg PO BID Hydromorphone (Hydromorphone HCl) 2 Mg Tab 2 Mg PO Q6H PRN Hydromorphone (Hydromorphone HCl) 4 Mg Tab 4 Mg PO Q3HR PRN Review of Systems Except as stated in HPI: all other systems reviewed are Neg Physical Exam Narrative GENERAL: 62yo F in moderate distress. SKIN: Focused skin assessment warm/dry. HEAD: Atraumatic. Normocephalic. CARDIOVASCULAR: Regular rate and rhythm. No murmur appreciated. RESPIRATORY: No accessory muscle use. Clear to auscultation. Breath sounds equal bilaterally. GASTROINTESTINAL: Abdomen soft, +TTP epigastric region. No rebound tenderness or guarding. MUSCULOSKELETAL: No obvious deformities. No clubbing. No cyanosis. No edema. NEUROLOGICAL: Awake and alert. No obvious cranial nerve deficits. Motor grossly within normal limits. Normal speech. PSYCHIATRIC: Appropriate mood and affect; insight and judgment normal. Data Data Last Documented VS Vital Signs Date Time Temp Pulse Resp B/P (MAP) Pulse Ox O2 Delivery O2 Flow Rate FiO2 01/02/18 14:25 90 14 120/65 (83) 100 Room Air 01/02/18 10:00 98.5 Orders Orders Complete Blood Count With Diff (01/02/18 10:57) Comprehensive Metabolic Panel (01/02/18 10:57) Lipase (01/02/18 10:57) Urinalysis - C+S If Indicated (01/02/18 10:57) Ct Abd/Pel W Iv Contrast(Rout) (01/02/18 10:57) Electrocardiogram (01/02/18 10:57) Morphine Inj (Morphine Inj) (01/02/18 11:00) Ondansetron Odt (Zofran Odt) (01/02/18 11:00) Iohexol 350 Inj (Omnipaque 350 Inj) (01/02/18 11:54) ^ Straight Catheter (01/02/18 13:00) Urine Culture (01/02/18 12:45) Ceftriaxone Inj (Rocephin Inj) (01/02/18 13:45) Hydromorphone Pf Inj (Dilaudid Pf Inj) (01/02/18 13:45) Labs Laboratory Tests Test 01/02/18 11:00 01/02/18 12:45 White Blood Count 3.2 TH/MM3 Red Blood Count 3.40 MIL/MM3 Hemoglobin 10.4 GM/DL Hematocrit 30.2 % Mean Corpuscular Volume 89.0 FL Mean Corpuscular Hemoglobin 30.8 PG Mean Corpuscular Hemoglobin Concent 34.6 % Red Cell Distribution Width 20.4 % Platelet Count 208 TH/MM3 Mean Platelet Volume 8.8 FL Neutrophils (%) (Auto) 54.4 % Lymphocytes (%) (Auto) 40.2 % Monocytes (%) (Auto) 3.0 % Eosinophils (%) (Auto) 1.5 % Basophils (%) (Auto) 0.9 % Neutrophils # (Auto) 1.8 TH/MM3 Lymphocytes # (Auto) 1.3 TH/MM3 Monocytes # (Auto) 0.1 TH/MM3 Eosinophils # (Auto) 0.0 TH/MM3 Basophils # (Auto) 0.0 TH/MM3 CBC Comment DIFF FINAL Differential Comment Blood Urea Nitrogen 7 MG/DL Creatinine 0.53 MG/DL Random Glucose 88 MG/DL Total Protein 5.8 GM/DL Albumin 2.8 GM/DL Calcium Level 8.8 MG/DL Alkaline Phosphatase 92 U/L Aspartate Amino Transf (AST/SGOT) 48 U/L Alanine Aminotransferase (ALT/SGPT) 40 U/L Total Bilirubin 1.0 MG/DL Sodium Level 143 MEQ/L Potassium Level 4.0 MEQ/L Chloride Level 108 MEQ/L Carbon Dioxide Level 28.3 MEQ/L Anion Gap 7 MEQ/L Estimat Glomerular Filtration Rate 117 ML/MIN Lipase 53 U/L Urine Collection Type CATH Urine Color YELLOW Urine Turbidity SL CLOUDY Urine pH 7.0 Urine Specific [place] LESS/EQUAL 1.005 Urine Protein 100 mg/dL Urine Glucose (UA) NEG mg/dL Urine Ketones 15 mg/dL Urine Occult Blood SMALL Urine Nitrite POS Urine Bilirubin NEG Urine Urobilinogen 0.2 MG/DL Urine Leukocyte Esterase SMALL Urine RBC 10-14 /hpf Urine WBC 100-200 /hpf Urine WBC Clumps MANY Urine Renal Epithelial Cells 0-5 /hpf Urine Bacteria MANY /hpf Microscopic Urinalysis Comment CATH-CULTURE IND MDM Medical Decision Making Medical Screen Exam Complete: Yes Emergency Medical Condition: Yes Interpretation(s) EKG: NSR 78bpm. Normal axis. No ST segment elevation or depression. Differential Diagnosis Pancreatic cancer vs. obstruction vs. dehydration vs. electrolyte abnormality vs. tumor lysis syndrome Narrative Course 62yo F with pancreatic cancer here with abdominal pain. Pt also with worsening neuropathy in her legs. Labs reviewed, WBC 3.2. Neutrophil count 1.8. H/H 10.4/30.2. Lipase low. AST 48 but less than prior. UA showed positive nitrite , given ceftriaxone 1gm IV. CT a/p showed multiple metastatic liver lesions appears to have decreased in number compare to previous study. Pancreatic mass not well seen on current study and may have resolved status post treatment. Patient given morphine initially but said pain has improved but is returning, said she usually needs dilaudid. Pt given dialudd and zofran and reevaluated at bedside. Return precautions given. Diagnosis Primary Impression: UTI (urinary tract infection) Qualified Codes: N39.0 - Urinary tract infection, site not specified; R31.9 - Hematuria, unspecified Patient Instructions: General Instructions Departure Forms: Tests/Procedures Additional Instructions: Please follow up with your primary care physician in 2-3 days. Return to the ED if symptoms worsen. Med/Other Pt SpecificInfo: Prescription(s) given Scripts Sulfamethoxazole-Trimethoprim (Bactrim DS) 800-160 Mg Tab 1 TAB PO BID for Infection, #20 TAB 0 Refills Prov: Cassandra Caputo DO 01/02/18 Disposition: 01 DISCHARGE HOME Condition: Stable Cassandra Caputo DO January 02, 2018 11:02
[2018-01-02 11:16] LABS: AUTOMATED NEUTROPHIL # 1.8 TH/MM3 (1.8-7.7); BASOPHIL % 0.9 % (0.0-2.0); EOSINOPHIL % 1.5 % (0.0-4.0); HEMATOCRIT 30.2 % (35.0-46.0); HEMOGLOBIN 10.4 GM/DL (11.6-15.3); LYMPH % 40.2 % (9.0-44.0); LYMPHOCYTE # 1.3 TH/MM3 (1.0-4.8); MEAN CORPUSCULAR HEMOGLOBIN 30.8 PG (27.0-34.0); MEAN CORPUSCULAR HGB CONC 34.6 % (32.0-36.0); MEAN PLATELET VOLUME 8.8 FL (7.0-11.0); MONOCYTE # 0.1 TH/MM3 (0-0.9); NEUT % 54.4 % (16.0-70.0); PLATELET COUNT 208 TH/MM3 (150-450); RED CELL DISTRIBUTION WIDTH 20.4 % (11.6-17.2); WHITE BLOOD COUNT 3.2 TH/MM3 (4.0-11.0)
[2018-01-02 11:25] LABS: CHLORIDE 108 MEQ/L (98-107); SODIUM (NA) 143 MEQ/L (136-145)
[2018-01-02 11:29] LABS: CALCIUM 8.8 MG/DL (8.5-10.1)
[2018-01-02 11:30] LABS: ALBUMIN 2.8 GM/DL (3.4-5.0); BICARBONATE 28.3 MEQ/L (21.0-32.0); BLOOD UREA NITROGEN 7 MG/DL (7-18); GLUCOSE,RANDOM 88 MG/DL (74-106)
[2018-01-02 11:33] LABS: ALT (GPT) 40 U/L (10-53); AST (GOT) 48 U/L (15-37); CREATININE 0.53 MG/DL (0.50-1.00); GLOMERULAR FILTRATION RATE 117 ML/MIN (>89)
[2018-01-02 11:34] LABS: TOTAL PROTEIN 5.8 GM/DL (6.4-8.2)
[2018-01-02 11:36] LABS: ALKALINE PHOSPHATASE 92 U/L (45-117)
[2018-01-02 11:45] VITALS: BP 146/75; PULSE 75; RESP 14; O2SAT 100
[2018-01-02] MEDS ORDERED: IOHEXOL 350 MG/ML 10 ML VIAL (for RAD DIAG) IVCONTRAST ONE (11:54)
--- NOTE | 2018-01-02 12:10 | RADRPT ---
EXAM DATE/TIME: 01/02/2018 11:47 [facility] COMPARISON: CT ABDOMEN & PELVIS W CONTRAST, October 17, 2017, 11:33. INDICATIONS : Epigastric pain radiating to back. IV CONTRAST: 85 cc Omnipaque 350 (iohexol) IV ORAL CONTRAST: No oral contrast ingested. RADIATION DOSE: 5.25 CTDIvol (mGy) MEDICAL HISTORY : Carcinoma, pancreas. Metastatic, liver. Skin cancer. SURGICAL HISTORY : section. Tubal ligation. ENCOUNTER: Initial ACUITY: 1 day PAIN SCALE: 5/10 LOCATION: upper quadrant TECHNIQUE: Volumetric scanning of the abdomen and pelvis was performed. Using automated exposure control and ad justment of the mA and/or kV according to patient size, radiation dose was kept as low as reasonably achievable to obtain optimal diagnostic quality images. DICOM format image data is available electro nically for review and comparison. FINDINGS: LOWER LUNGS: The visualized lower lungs are clear. LIVER: Multiple metastatic liver lesions. There is no dilation of the biliary tree. No calcified gallstones . SPLEEN: Normal size without lesion. PANCREAS: Previously identified pancreatic mass not well-seen. KIDNEYS: Normal in size and shape. There is no mass, stone or hydronephrosis. ADRENAL GLANDS: Within normal limits. VASCULAR: There is no aortic aneurysm. BOWEL/MESENTERY: The stomach, small bowel, and colon demonstrate no acute abnormality. There is no free intraperitone al air or fluid. ABDOMINAL WALL: Within normal limits. RETROPERITONEUM: There is no lymphadenopathy. BLADDER: Mildly distended No wall thickening or mass. REPRODUCTIVE: Prominent pelvic varices bilaterally. INGUINAL: There is no lymphadenopathy or hernia. MUSCULOSKELETAL: Within normal limits for patient age. CONCLUSION: 1. Multiple metastatic liver lesions appears to have decreased in number when compared to previous [facility]. 2. Pancreatic mass not well-seen on current study and may have resolved status post treatment. 3. Urinary bladder is slightly distended. Dylan Sexton MD on January 02, 2018 at 12:02 Board Certified Radiologist. This report was verified electronically.
[2018-01-02 12:51] LABS: BILIRUBIN, URINE NEG (NEG); BLOOD, URINE SMALL (NEG); GLUCOSE,URINE NEG (NEG); KETONE, URINE 15 mg/dL (NEG); NITRITE,URINE POS (NEG); URINE COLOR YELLOW (YELLW/STRAW); URINE LEUKOCYTE ESTERASE SMALL (NEG)
[2018-01-02 13:00] LABS: WBC, URINE 100-200 /hpf (0-5); WHITE BLOOD CELL CLUMPS MANY
[2018-01-02 13:01] LABS: BACTERIA, URINE MANY /hpf; RENAL EPITHELIAL CELLS 0-5 /hpf
[2018-01-02] MEDS ORDERED: HYDROmorphone HCL PF 2 MG/ML VIAL IV PUSH ONE (13:45)
[2018-01-02] MEDS ORDERED: cefTRIAXone INJ 1,000 MG in SODIUM CHLORIDE 0.9% INJ 100 ML IV ONE (13:45)
[2018-01-02 14:25] VITALS: BP 120/65; PULSE 90; RESP 14; O2SAT 100
[2018-01-02] MEDS ORDERED: BACT800T5 PO (14:28)
--- NOTE | 2018-01-03 09:41 | EKG ---
Date Performed: 01/02/2018 Time Performed: 11:19:15 PTAGE: 62 years EKG: Sinus rhythm WITH SHORT MA INTERVAL MODERATE ST DEPRESSION ABNORMAL ECG Since the PREVIOUS TRACING , no significant change noted PREVIOUS TRACIN09/16/2017 15.01 DOCTOR: Sandrita Prince Interpretating Date/Time 01/03/2018 09:39:49
== END 2018-01-02 15:08 | disposition home or self-care (01) ==
LOC: PHED 09:56
DX: N39.0 Urinary tract infection, site not specified (principal); B96.20 Unspecified Escherichia coli [E. coli] as the cause of diseases classified elsewhere; C25.9 Malignant neoplasm of pancreas, unspecified; C78.7 Secondary malignant neoplasm of liver and intrahepatic bile duct; R53.1 Weakness; R94.31 Abnormal electrocardiogram [ECG] [EKG]; F41.9 Anxiety disorder, unspecified; F32.9 Major depressive disorder, single episode, unspecified; G62.9 Polyneuropathy, unspecified
CPT/HCPCS: 74177; 80053; 81001; 83690; 85025; 87077; 87086; 87186; 93005; 96365; 96375; 99285; J0696; J1170; J2270; Q9967

== ENCOUNTER 2018-01-21 12:44 | Inpatient (IN) | payer BC ==
[~2018-01-21] VITALS: Ht 167.6 cm; Wt 58.3 kg
[~2018-01-21 12:44] MED LIST changes: +BACT800T5 PO; +DULO1CAP2 PO; -ESOM1CAP16 PO; +HYDR2TAB PO; +HYDR4TAB PO; +LYRI150C PO; -MACR100C2 PO; +MAGN100T4 PO; +MILK300C PO; -MILK500C2 PO; -MORP1TAB24 PO; -NYST1000 SWISH-SWAL; -ONDA4TAB7 SL; +PANT40TA3 PO; -PROC10TA PO; +VITA400T18 PO; -[UNRECOGNIZED DRUG - CODE]; -[UNRECOGNIZED DRUG - CODE] PO; -[UNRECOGNIZED DRUG - OTHER]
[2018-01-21 12:50] VITALS: BP 130/90; PULSE 90; RESP 18; TEMP 98.4
[2018-01-21 12:59] VITALS: BP 113/61; PULSE 77; RESP 16; TEMP 98.4; O2SAT 100
--- NOTE | 2018-01-21 13:09 | PD ---
HPI Chief Complaint: Injury Time Seen by Provider: 12:56 Travel History International Travel<30 days: No Contact w/Intl Traveler<30days: No Traveled to known affect area: No History of Present Illness HPI Patient comes in complaining of leg pain, 8 out of 10, described as burning sensation, no associated swelling or discoloration of skin, states that she has had this for months, since she was given a chemotherapy. Patient also complained of epigastric area pressure, nonradiating, 3 out of 10, denies any nausea vomiting or diarrhea. Also denies any radiating pain. Primary reason for her coming here she understands that she has metastatic pancreatic cancer, but just wanted to make sure to get some additional pain control for her neuropathy besides the morphine that she is getting at home. No nondrug allergies Past medical history significant for, neuropathy with foot drop, pancreatic cancer for which she is receiving chemo, C-sections, PFSH Past Medical History Hx Anticoagulant Therapy: No Anxiety: Yes Depression: Yes Cancer: Yes (SKIN, PANCREATIC) Cardiovascular Problems: No Chemotherapy: Yes Diabetes: No Diminished Hearing: No Gastrointestinal Disorders: Yes (RECENT PAIN IN ABDOMEN ) Genitourinary: No Musculoskeletal: No Neurologic: Yes (Neuropathy, foot drop ) Reproductive: No Respiratory: No Integumentary: Yes (SKIN CA LEFT LOWER LEG) ?: Not Menopausal: Yes Tubal Ligation: Yes Past Surgical History Gynecologic Surgery: Yes (C SECTIONS ) Oral Surgery: Yes (titanium post) Social History Alcohol Use: No Tobacco Use: No Substance Use: No Allergies-Medications (Allergen,Severity, Reaction): Coded Allergies: No Known Allergies (Unverified , 01/21/18) Reported Meds & Prescriptions Reported Meds & Active Scripts Active Reported [azocranberry] 2 Tab PO DAILY Cephalexin 500 Mg Cap 500 Mg PO TID Mag Glycinate (Magnesium Glycinate) 100 Mg Tablet 4 Tab PO DAILY Milk Thistle 150 Mg Cap 1 Cap PO DAILY Duloxetine DR (Duloxetine HCl) 30 Mg Capdr 30 Mg PO DAILY Lyrica (Pregabalin) 150 Mg Cap 150 Mg PO BID Pantoprazole (Pantoprazole Sodium) 40 Mg Tab 40 Mg PO BID Hydromorphone (Hydromorphone HCl) 4 Mg Tab 4 Mg PO Q3HR PRN Review of Systems General / Constitutional: No: Fever Eyes: No: Visual changes HENT: No: Headaches Cardiovascular: Positive: Chest Pain or Discomfort Respiratory: No: Shortness of Breath Gastrointestinal: No: Abdominal Pain Genitourinary: No: Dysuria Musculoskeletal: No: Pain Skin: No Rash Neurologic: Positive: Paresthesia (To bilateral lower extremity) Psychiatric: No: Depression Endocrine: No: Polydipsia Hematologic/Lymphatic: No: Easy Bruising Physical Exam Narrative GENERAL: SKIN: Warm and dry. HEAD: Atraumatic. Normocephalic. Juanito EYES: Pupils equal and round. No scleral icterus. No injection or drainage. ENT: No nasal bleeding or discharge. Mucous membranes pink and moist. NECK: Trachea midline. No JVD. CARDIOVASCULAR: Regular rate and rhythm. RESPIRATORY: No accessory muscle use. Clear to auscultation. Breath sounds equal bilaterally. GASTROINTESTINAL: Abdomen soft, non-tender, nondistended. MUSCULOSKELETAL: Extremities without clubbing, cyanosis, or edema. No obvious deformities. NEUROLOGICAL: Awake and alert. No obvious cranial nerve deficits. Motor grossly within normal limits. Five out of 5 muscle strength in the arms and legs. Normal speech. PSYCHIATRIC: Appropriate mood and affect; insight and judgment normal. Data Data Last Documented VS Vital Signs Date Time Temp Pulse Resp B/P (MAP) Pulse Ox O2 Delivery O2 Flow Rate FiO2 01/21/18 14:37 80 16 114/60 (78) 99 Room Air 01/21/18 12:59 98.4 Orders Orders Complete Blood Count With Diff (01/21/18 13:10) Comprehensive Metabolic Panel (01/21/18 13:10) Troponin I (01/21/18 13:10) Lipase (01/21/18 13:10) Ct Thorax/ Chest Wo Iv Contras (01/21/18 13:10) Morphine Inj (Morphine Inj) (01/21/18 13:45) Urinary Catheter Insert/Apply (01/21/18 13:50) Urine Culture (01/21/18 13:55) Hydromorphone Pf Inj (Dilaudid Pf Inj) (01/21/18 15:45) Labs Laboratory Tests Test 01/21/18 13:44 White Blood Count 9.7 TH/MM3 Red Blood Count 4.18 MIL/MM3 Hemoglobin 12.5 GM/DL Hematocrit 38.4 % Mean Corpuscular Volume 92.0 FL Mean Corpuscular Hemoglobin 30.0 PG Mean Corpuscular Hemoglobin Concent 32.6 % Red Cell Distribution Width 18.4 % Platelet Count 259 TH/MM3 Mean Platelet Volume 9.4 FL Neutrophils (%) (Auto) 73.7 % Lymphocytes (%) (Auto) 14.2 % Monocytes (%) (Auto) 9.8 % Eosinophils (%) (Auto) 1.5 % Basophils (%) (Auto) 0.8 % Neutrophils # (Auto) 7.2 TH/MM3 Lymphocytes # (Auto) 1.4 TH/MM3 Monocytes # (Auto) 1.0 TH/MM3 Eosinophils # (Auto) 0.2 TH/MM3 Basophils # (Auto) 0.1 TH/MM3 CBC Comment DIFF FINAL Differential Comment Blood Urea Nitrogen 11 MG/DL Creatinine 0.69 MG/DL Random Glucose 95 MG/DL Total Protein 6.4 GM/DL Albumin 3.1 GM/DL Calcium Level 9.0 MG/DL Alkaline Phosphatase 124 U/L Aspartate Amino Transf (AST/SGOT) 34 U/L Alanine Aminotransferase (ALT/SGPT) 20 U/L Total Bilirubin 0.7 MG/DL Sodium Level 141 MEQ/L Potassium Level 4.2 MEQ/L Chloride Level 102 MEQ/L Carbon Dioxide Level 26.1 MEQ/L Anion Gap 13 MEQ/L Estimat Glomerular Filtration Rate 86 ML/MIN Troponin I LESS THAN 0.02 NG/ML Lipase 41 U/L MDM Medical Decision Making Medical Screen Exam Complete: Yes Emergency Medical Condition: Yes Medical Record Reviewed: Yes Differential Diagnosis Pericardial effusion versus tamponade versus AK versus Narrative Course Based on chart review oncologist Dr. 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 She has had treatment at cancer [facility] in [place], she will no longer be on Abraxane treatment. She is currently on a 2 week break, will have a PET scan performed and Dr. Brothers will consider doing a round of treatment with a single agent such as Gemzar. However he has explained to the patient and family that she still has persistent metastatic disease despite aggressive treatment and she has developed severe neuropathy due to and thus he will avoid any therapy that will cause excessive toxicity and cause further decline in her functional status. Patient has also had a UTI that was positive for Klebsiella pneumonia and E. coli for which she has received 3 courses of antibiotic according to the patient , her latest one being Keflex. The patient has also been given a prescription for Lyrica for and also physical therapy for peripheral wasting and deconditioning CBC shows leukocytosis, no anemia, normal platelet count, no left shift Electrolytes are all within normal limits, normal kidney liver and pancreatic functions. First set of cardiac enzymes negative CT chest shows no evidence of any pericardial effusion, no pneumonia, only right lower lobe mass 1 cm noted as well as widespread metastatic disease of the liver again previously noted. Diagnosis Primary Impression: Metastatic pancreatic CA Additional Impression: acute on chronic peripheral neuropathy Patient Instructions: General Instructions, Pancreatic Cancer (DC) Disposition: 01 DISCHARGE HOME Condition: Stable Mahad Lee MD Jan 21, 2018 13:09
[2018-01-21] MEDS ORDERED: MORPHINE SULFATE 2 MG/ML SYRINGE IV PUSH ONE (13:15)
[2018-01-21] MEDS ORDERED: MORPHINE SULFATE 4 MG/ML INJ IV PUSH ONE (13:45)
[2018-01-21 13:50] LABS: AUTOMATED NEUTROPHIL # 7.2 TH/MM3 (1.8-7.7); BASOPHIL # 0.1 TH/MM3 (0-0.2); BASOPHIL % 0.8 % (0.0-2.0); EOSINOPHIL # 0.2 TH/MM3 (0-0.4); EOSINOPHIL % 1.5 % (0.0-4.0); HEMATOCRIT 38.4 % (35.0-46.0); HEMOGLOBIN 12.5 GM/DL (11.6-15.3); LYMPH % 14.2 % (9.0-44.0); LYMPHOCYTE # 1.4 TH/MM3 (1.0-4.8); MEAN CORPUSCULAR HGB CONC 32.6 % (32.0-36.0); MEAN PLATELET VOLUME 9.4 FL (7.0-11.0); MONO % 9.8 % (0.0-8.0); NEUT % 73.7 % (16.0-70.0); PLATELET COUNT 259 TH/MM3 (150-450); RED BLOOD COUNT 4.18 MIL/MM3 (4.00-5.30); RED CELL DISTRIBUTION WIDTH 18.4 % (11.6-17.2); WHITE BLOOD COUNT 9.7 TH/MM3 (4.0-11.0)
[2018-01-21 14:15] LABS: ALBUMIN 3.1 GM/DL (3.4-5.0); ALT (GPT) 20 U/L (10-53); AST (GOT) 34 U/L (15-37); BICARBONATE 26.1 MEQ/L (21.0-32.0); BLOOD UREA NITROGEN 11 MG/DL (7-18); CHLORIDE 102 MEQ/L (98-107); CREATININE 0.69 MG/DL (0.50-1.00); GLOMERULAR FILTRATION RATE 86 ML/MIN (>89); GLUCOSE,RANDOM 95 MG/DL (74-106); SODIUM (NA) 141 MEQ/L (136-145)
[2018-01-21 14:19] LABS: ALKALINE PHOSPHATASE 124 U/L (45-117); TOTAL BILIRUBIN ADULT 0.7 MG/DL (0.2-1.0); TOTAL PROTEIN 6.4 GM/DL (6.4-8.2); TROPONIN I LESS THAN 0.02 NG/ML (0.02-0.05)
[2018-01-21 14:37] VITALS: BP 114/60; PULSE 80; RESP 16; O2SAT 99
[2018-01-21] MEDS ORDERED: [UNRECOGNIZED DRUG - OTHER] PO (14:47)
[2018-01-21] MEDS ORDERED: CEPH500C PO (14:47)
--- NOTE | 2018-01-21 15:23 | RADRPT ---
EXAM DATE: 01/21/2018 3:10 PM EDT AGE/SEX: 62 years / Female INDICATIONS: Shortness of breath, chest discomfort. CLINICAL DATA: This is the patient's initial encounter. Patient reports that signs and symptoms have been present for 1 day and indicates a pain score of 2/10. MEDICAL/SURGICAL HISTORY: Carcinoma, pancreas. Carcinoma, skin cancer. Chemotherapy. Tubal ligat ion. RADIATION DOSE: 5.06 CTDI (mGy) COMPARISON: [facility], CT PULMONARY ANGIOGRAM, 09/16/2017. [facility], CT ABDOMEN & PELVIS W CONTRAST, 01/02. . TECHNIQUE: Multiple contiguous axial images were obtained through the chest without contrast. Image s were obtained in suspended respiration using multiple row detector helical technique. Using automa anne exposure control and adjustment of the mA and/or kV according to patient size, radiation dose was kept as low as reasonably achievable to obtain optimal diagnostic quality images. FINDINGS: No infiltrate, effusion or pneumothorax. There is mild emphysema. 1 cm mass of the right lower lobe i s unchanged. There is no mediastinal, hilar or axillary lymphadenopathy. Stable, normal heart size. Right IJ [id number] catheter with tip at the atriocaval junction again noted. No lytic or sclerotic lesions seen of the visualized osseous structures. Numerous vague hypodensities scattered throughout the liver again noted measuring up to 3.3 cm in siz e. CONCLUSION: 1. No pneumonia or other acute cardiopulmonary disease. 2. 1 cm mass of the right lower lobe is without significant change. 3. Widespread metastatic disease of the liver again noted. 4. Mild emphysema. Electronically signed by: Chino Clement MD 01/21/2018 3:21 PM EDT
[2018-01-21] MEDS ORDERED: HYDROmorphone HCL PF 1 MG/ML VIAL IV PUSH ONE (15:45)
[2018-01-21] MEDS ORDERED: HYDROmorphone HCL PF 2 MG/ML VIAL IV ONE ×2 (16:00→20:45)
[2018-01-21] MEDS ORDERED: ONDANSETRON ODT 4 MG TAB PO PRN (17:45)
[2018-01-21] MEDS ORDERED: SENNOSIDES 8.6 MG TAB PO PRN (17:45)
[2018-01-21] MEDS ORDERED: NALOXONE HCL 0.4 MG/ML AMP IV PUSH PRN (17:45)
[2018-01-21] MEDS ORDERED: PROCHLORPERAZINE 25 MG SUPP RECTAL PRN (17:45)
[2018-01-21] MEDS ORDERED: HYDROmorphone HCL 4 MG TAB PO PRN ×3 (17:45→18:00)
[2018-01-21] MEDS ORDERED: ACETAMINOPHEN 325 MG TAB PO PRN (17:45)
[2018-01-21] MEDS ORDERED: SODIUM CHLORIDE 0.9% FLUSH 10 ML FLUSH IV FLUSH PRN (17:45)
[2018-01-21] MEDS ORDERED: BISACODYL 10 MG SUPP RECTAL PRN (17:45)
--- NOTE | 2018-01-21 17:45 | HHI.HP ---
[facility] Service [facility] Primary Care Physician Lisa Espino MD Admission Diagnosis CP R/O NM Diagnoses: Chief Complaint: C/o chest pain and abdominal pain Travel History International Travel<30 Days: No Contact w/Intl Traveler <30 Da: No Traveled to Known Affected Are: No History of Present Illness Patient is a 62 year old female with past medical history of metastatic pancreatic cancer, skin cancer, neuropathy, anxiety, depression who came into the hospital for evaluation of chest pain, midepigastric pain. Patient states chest pain started about 2 days ago not associated with shortness of breath or dyspnea, diaphoresis, nausea, vomiting. Patient states pain is in the mid epigastric region and it goes left lateral chest side, also it goes right upper quadrant area. Described as intermittent, it feels like "when I do not eat on time, I do not know how to describe it," 6/10, loss of appetite, does not know how to relieve it or does not know what aggravates it. States she has nausea but relates it to pain medication and previous chemotherapy. Patient is being followed by Dr. Rangel in the outpatient setting. States she finished her first cycle of chemotherapy 3 weeks ago. Patient reports weight loss. She also reports bilateral foot drop. States she is on physical therapy at home, unable to bear weight and stand up. She has her grand son to assist her transferring in and out of the commode at home. She also reports she has urinary tract infection that is being followed by Dr. Rangel, she was placed on Keflex. States she is on and off of antibiotics secondary to urinary tract infection. Complains of mild dysuria. She has a Nunez catheter now placed during admission to the ED, draining cloudy urine. Denies palpitations, shortness of breath or dyspnea, dizziness, headaches. Denies fevers, chills. Initial vital signs 98.4, 90, 18, 130/90 CBC no leukocytosis noted, slightly elevated neutrophil First troponin negative, 0.02 Lipase 41, albumin 3.[address] showed no pneumonia or other acute cardiopulmonary disease. 1 cm mass of the right lower lobe is without significant change. Widespread metastatic disease of the liver again noted. Mild emphysema. Review of Systems ROS Limitations: Poor Historian Except as stated in HPI: all other systems reviewed are Neg Past Family Social History Past Medical History Skin cancer left lower extremity Metastatic pancreatic cancer Neuropathy Bilateral foot drop Anxiety Depression Past Surgical History Tubal ligation Oral surgery Back surgery Skin cancer on the left leg excision Reported Medications Reported Meds & Active Scripts Active Reported [azocranberry] 2 Tab PO DAILY Cephalexin 500 Mg Cap 500 Mg PO TID Mag Glycinate (Magnesium Glycinate) 100 Mg Tablet 4 Tab PO DAILY Milk Thistle 150 Mg Cap 1 Cap PO DAILY Duloxetine DR (Duloxetine HCl) 30 Mg Capdr 30 Mg PO DAILY Lyrica (Pregabalin) 150 Mg Cap 150 Mg PO BID Pantoprazole (Pantoprazole Sodium) 40 Mg Tab 40 Mg PO BID Hydromorphone (Hydromorphone HCl) 4 Mg Tab 4 Mg PO Q3HR PRN Allergies: Coded Allergies: No Known Allergies (Unverified , 01/21/18) Physical Exam Vital Signs Vital Signs Date Time Temp Pulse Resp B/P (MAP) Pulse Ox O2 Delivery O2 Flow Rate FiO2 01/21/18 16:21 18 01/21/18 14:37 80 16 114/60 (78) 99 Room Air 01/21/18 13:47 16 01/21/18 12:59 98.4 77 16 113/61 (78) 100 Room Air 01/21/18 12:56 99 01/21/18 12:50 98.4 90 18 130/90 (103) Physical Exam GENERAL: This is a thin appearing, bald, appears older than stated age, in no apparent distress. SKIN: Cool and dry. Dry turgor. HEAD: Normocephalic. EYES: Pupils equal round and reactive. Extraocular motions intact. No scleral icterus. No injection or drainage. ENT: Nose without bleeding. Throat without erythema. Uvula midline. Airway patent. NECK: Trachea midline. CARDIOVASCULAR: Regular rate and rhythm without murmurs, gallops, or rubs. RESPIRATORY: Clear to auscultation. Breath sounds equal bilaterally. No wheezes , rales, or rhonchi. GASTROINTESTINAL: Abdomen soft, nondistended. Mid epigastric tenderness to palpate, right upper quadrant tenderness to palpate, right lower quadrant tenderness to palpate. MUSCULOSKELETAL: Extremities without clubbing, cyanosis, or edema. NEUROLOGICAL: Awake and alert. Forgetful. Oriented to person, place, year. Bilateral foot drop. Minimal range of motion bilateral lower extremities. Normal speech. Laboratory Laboratory Tests Test 01/21/18 13:44 White Blood Count 9.7 Red Blood Count 4.18 Hemoglobin 12.5 Hematocrit 38.4 Mean Corpuscular Volume 92.0 Mean Corpuscular Hemoglobin 30.0 Mean Corpuscular Hemoglobin Concent 32.6 Red Cell Distribution Width 18.4 Platelet Count 259 Mean Platelet Volume 9.4 Neutrophils (%) (Auto) 73.7 Lymphocytes (%) (Auto) 14.2 Monocytes (%) (Auto) 9.8 Eosinophils (%) (Auto) 1.5 Basophils (%) (Auto) 0.8 Neutrophils # (Auto) 7.2 Lymphocytes # (Auto) 1.4 Monocytes # (Auto) 1.0 Eosinophils # (Auto) 0.2 Basophils # (Auto) 0.1 CBC Comment DIFF FINAL Differential Comment Blood Urea Nitrogen 11 Creatinine 0.69 Random Glucose 95 Total Protein 6.4 Albumin 3.1 Calcium Level 9.0 Alkaline Phosphatase 124 Aspartate Amino Transf (AST/SGOT) 34 Alanine Aminotransferase (ALT/SGPT) 20 Total Bilirubin 0.7 Sodium Level 141 Potassium Level 4.2 Chloride Level 102 Carbon Dioxide Level 26.1 Anion Gap 13 Estimat Glomerular Filtration Rate 86 Troponin I LESS THAN 0.02 Lipase 41 Date/Time Source Procedure Growth Status 01/21/18 14:10 Urine Catheterized Urine Urine Culture Pending Received Result Diagram: 01/21/18 1344 01/21/18 1344 Imaging Last Impressions Chest CT 01/21/18 1310 Signed Impressions: CONCLUSION: 1. No pneumonia or other acute cardiopulmonary disease. 2. 1 cm mass of the right lower lobe is without significant change. 3. Widespread metastatic disease of the liver again noted. 4. Mild emphysema. Caprini VTE Risk Assessment Caprini VTE Risk Assessment: Mod/High Risk (score >= 2) Caprini Risk Assessment Model Point Value = 1 Point Value = 2 Point Value = 3 Point Value = 5 Age 41-60 Minor surgery BMI > 25 kg/m2 Swollen legs Varicose veins or History of unexplained or recurrent spontaneous Oral contraceptives or hormone replacement Sepsis (< 1 month) Serious lung disease, including pneumonia (< 1 month) Abnormal pulmonary function Acute myocardial infarction Congestive heart failure (< 1 month) History of inflammatory bowel disease Medical patient at bed rest Age 61-74 Arthroscopic surgery Major open surgery (> 45 min) Laparoscopic surgery (> 45 min) Malignancy Confined to bed (> 72 hours) Immobilizing plaster cast Central venous access Age >= 75 History of VTE Family history of VTE Factor V Leiden Prothrombin [id number] Lupus anticoagulant Anticardiolipin antibodies Elevated serum homocysteine Heparin-induced thrombocytopenia Other congenital or acquired thrombophilia Stroke (< 1 month) Elective arthroplasty Hip, pelvis, or leg fracture Acute spinal cord injury (< 1 month) Prophylaxis Regimen Total Risk Factor Score Risk Level Prophylaxis Regimen 0-1 Low Early ambulation 2 Moderate Order ONE of the following: *Sequential Compression Device (SCD) *Heparin 5000 units SQ BID 3-4 Higher Order ONE of the following medications: *Heparin 5000 units SQ TID *Enoxaparin/Lovenox 40 mg SQ daily (WT < 150 kg, CrCl > 30 mL/min) *Enoxaparin/Lovenox 30 mg SQ daily (WT < 150 kg, CrCl > 10-29 mL/min) *Enoxaparin/Lovenox 30 mg SQ BID (WT < 150 kg, CrCl > 30 mL/min) AND/OR *Sequential Compression Device (SCD) 5 or more Highest Order ONE of the following medications: *Heparin 5000 units SQ TID (Preferred with Epidurals) *Enoxaparin/Lovenox 40 mg SQ daily (WT < 150 kg, CrCl > 30 mL/min) *Enoxaparin/Lovenox 30 mg SQ daily (WT < 150 kg, CrCl > 10-29 mL/min) *Enoxaparin/Lovenox 30 mg SQ BID (WT < 150 kg, CrCl > 30 mL/min) AND *Sequential Compression Device (SCD) Assessment and Plan Assessment and Plan Patient is a 62 year old female with past medical history of metastatic pancreatic cancer, skin cancer, neuropathy, anxiety, depression who came into the hospital for evaluation of chest pain, midepigastric pain. Rule out ACS Chest pain complaints, radiating midepigastric area -Initial troponin negative. Will do serial troponin, serial EKG -CT of the chest showed no pneumonia or other acute cardiopulmonary disease. 1 cm mass of the right lower lobe is without significant change. Widespread metastatic disease of the liver again noted. Mild emphysema. -Pain management. Dilaudid home medication -Pantoprazole. Zofran/ compazine for nausea/vomiting -Follow up labs. Consult cardiology if enzymes are abnormal or for any EKG changes Hx of UTI -recently on keflex -Repeat UA. Follow cultures -Urine cloudy -Afebrile Metastatic pancreatic cancer Skin cancer Poor appetite -Followed by Dr. Rangel in the outpatient -Recently completed first cycle of chemotherapy 3 weeks ago -Encourage PO intake. IVF for gentle hydration, very dry turgor. Neuropathy Bilateral foot drop -Continue home medications Lyrica -Physical therapy evaluate and treat DVT Lovenox Attestation Patient seen and examined with DEWEY Kenney. The exam, history, and the medical decision-making described in the above note were completed with the assistance of the dictating practitioner. I attest that I had a [id number] encounter with the patient on the same day, and personally performed all of the history, exam, or medical decision making. Discussed case with him thoroughly after seeing the patient, reviewed and agreed with the plan. Please see addendum in History, Physical examination and Plan. See below for any errata/ additional input: This is a 59-year-old female with history of metastatic pancreatic cancer, presenting to the hospital with chest pain/periumbilical pain. Upon further probing, the patient is complaining of midepigastric to periumbilical pain, about daily, described as sharp, moderate, radiating to the right upper quadrant area, no associated shortness of breath but with mild nausea. She also reports and is very concerned about recurrent urinary tract infection. She complains of urinary frequency, urgency and hematuria today. Denies any fever or chills. Vital signs reviewed, no fever Not in distress Regular rate and rhythm, no murmurs Clear breath sounds Abdomen soft, mild epigastric and periumbilical tenderness on deep palpation No suprapubic tenderness No edema Bilateral foot drop Alert awake and oriented 3, no cranial nerve deficits. Patient does not have any leukocytosis but with urinary symptoms, first troponin negative, first and second EKG unremarkable, no concern for ischemia. Chest CT showed no pneumonia or PE. Agree with above, serial troponin EKG for now. Cardiology consultation only if with positive troponin or EKG. Patient did not really complain of chest pain but more of GI. Agree with Keflex, follow-up urine culture. Patient has no leukocytosis or fever. Code Status Full Code Discussed Condition With Patient, grand children, nurse, Sherly Alfaro Jan 21, 2018 17:45 Génesis Segovia MD Jan 21, 2018 18:32
[2018-01-21 17:59] VITALS: BP 133/59; PULSE 89; RESP 18; O2SAT 98
[2018-01-21] MEDS: ENOXAPARIN SODIUM 40 MG/0.4 ML SYRINGE SQ SCH (18:00)
[2018-01-21 20:02] VITALS: BP 128/58; PULSE 80; RESP 16; TEMP 98.1; O2SAT 100
[2018-01-21] MEDS ORDERED: PROCHLORPERAZINE INJ 10 MG/2 ML VIAL IV PUSH ONE (20:30)
[2018-01-21] MEDS: PANTOPRAZOLE SOD 40 MG DELAYED RELEASE TAB PO SCH (20:45)
[2018-01-21] MEDS: SODIUM CHLORIDE 0.9% FLUSH 10 ML FLUSH IV FLUSH SCH (20:50)
[2018-01-21] MEDS: PREGABALIN 75 MG CAP PO SCH (20:55)
[2018-01-21] MEDS: SODIUM CHLOR 0.9% 1000 ML INJ 1,000 ML IV SCH (22:33)
[2018-01-21 23:03] VITALS: BP 113/59; PULSE 80; RESP 16; TEMP 98.8; O2SAT 97
[2018-01-22] MEDS: HYDROmorphone HCL PF 0.5 MG/0.5 ML SYRINGE IV PRN ×6 (00:40→22:55)
[2018-01-22] MEDS: SODIUM CHLOR 0.9% 1000 ML INJ 1,000 ML IV SCH ×3 (03:19→23:50)
[2018-01-22 03:54] VITALS: BP 128/64; PULSE 89; RESP 16; TEMP 98.2; O2SAT 100
[2018-01-22 05:55] LABS: ALBUMIN 3.1 GM/DL (3.4-5.0); ALT (GPT) 20 U/L (10-53); AST (GOT) 39 U/L (15-37); BICARBONATE 23.2 MEQ/L (21.0-32.0); BLOOD UREA NITROGEN 8 MG/DL (7-18); CALCIUM 8.8 MG/DL (8.5-10.1); CHLORIDE 105 MEQ/L (98-107); CREATININE 0.64 MG/DL (0.50-1.00); GLOMERULAR FILTRATION RATE 94 ML/MIN (>89); GLUCOSE,RANDOM 85 MG/DL (74-106); SODIUM (NA) 142 MEQ/L (136-145)
[2018-01-22 05:57] LABS: ALKALINE PHOSPHATASE 128 U/L (45-117); TOTAL BILIRUBIN ADULT 0.8 MG/DL (0.2-1.0); TOTAL PROTEIN 6.6 GM/DL (6.4-8.2)
[2018-01-22 06:04] LABS: AUTOMATED NEUTROPHIL # 8.7 TH/MM3 (1.8-7.7); BASOPHIL # 0.1 TH/MM3 (0-0.2); BASOPHIL % 0.8 % (0.0-2.0); EOSINOPHIL # 0.3 TH/MM3 (0-0.4); EOSINOPHIL % 2.2 % (0.0-4.0); HEMATOCRIT 41.1 % (35.0-46.0); HEMOGLOBIN 13.4 GM/DL (11.6-15.3); LYMPH % 16.7 % (9.0-44.0); MEAN CELL VOLUME 92.4 FL (80.0-100.0); MEAN CORPUSCULAR HEMOGLOBIN 30.1 PG (27.0-34.0); MEAN CORPUSCULAR HGB CONC 32.5 % (32.0-36.0); MEAN PLATELET VOLUME 9.5 FL (7.0-11.0); MONO % 8.9 % (0.0-8.0); MONOCYTE # 1.1 TH/MM3 (0-0.9); NEUT % 71.4 % (16.0-70.0); PLATELET COUNT 261 TH/MM3 (150-450); RED BLOOD COUNT 4.45 MIL/MM3 (4.00-5.30); RED CELL DISTRIBUTION WIDTH 18.5 % (11.6-17.2); WHITE BLOOD COUNT 12.2 TH/MM3 (4.0-11.0)
[2018-01-22 08:39] VITALS: BP 126/68; PULSE 70; RESP 18; TEMP 98.2; O2SAT 98
[2018-01-22] MEDS: SODIUM CHLORIDE 0.9% FLUSH 10 ML FLUSH IV FLUSH SCH ×2 (09:00→20:04)
[2018-01-22] MEDS: PANTOPRAZOLE SOD 40 MG DELAYED RELEASE TAB PO SCH ×2 (09:25→20:01)
[2018-01-22] MEDS: PREGABALIN 75 MG CAP PO SCH ×3 (09:25→21:00)
[2018-01-22] MEDS: DULoxetine HCl DR 30 MG CAP PO SCH (09:25)
--- NOTE | 2018-01-22 11:35 | HHI.PR ---
Subjective Remarks Follow up UTI, neuropathy. Patient complaining of significant pain in both feet. Also with weakness. No abdominal pain, chest pain, dyspnea this morning. Objective Vitals Vital Signs Date Time Temp Pulse Resp B/P (MAP) Pulse Ox O2 Delivery O2 Flow Rate FiO2 01/22/18 10:57 18 01/22/18 10:57 18 01/22/18 08:39 98.2 70 18 126/68 (87) 98 01/22/18 03:54 98.2 89 16 128/64 (85) 100 01/21/18 23:03 98.8 80 16 113/59 (77) 97 01/21/18 21:35 16 01/21/18 20:02 98.1 80 16 128/58 (81) 100 01/21/18 19:17 01/21/18 17:59 89 18 133/59 (83) 98 Room Air 01/21/18 16:21 18 01/21/18 14:37 80 16 114/60 (78) 99 Room Air 01/21/18 13:47 16 01/21/18 12:59 98.4 77 16 113/61 (78) 100 Room Air 01/21/18 12:56 99 01/21/18 12:50 98.4 90 18 130/90 (103) Result Diagram: 01/22/18 0440 01/22/18 0440 Imaging Last Impressions Chest CT 01/21/18 1310 Signed Impressions: CONCLUSION: 1. No pneumonia or other acute cardiopulmonary disease. 2. 1 cm mass of the right lower lobe is without significant change. 3. Widespread metastatic disease of the liver again noted. 4. Mild emphysema. Objective Remarks General: No acute distress. Appears older than stated age. Heart: Regular rate and rhythm. No murmur. Lungs: Clear to auscultation bilaterally. No wheezes, rales, or rhonchi. Breathing is nonlabored. Abdomen: Soft, nontender, nondistended. Extremities: No lower extremity edema. Psych: Alert and oriented. Neuro: Normal speech. No focal deficits noted. Procedures None Urinary Catheter: Yes Assessment to: Continue Vascular Central Line Catheter: No A/P Assessment and Plan 1. Chest pain: Serial cardiac enzymes are negative. Patient denying chest pain this morning. Likely not cardiac in etiology. 2. Metastatic pancreatic cancer: Continue pain control. Consult patient's oncologist. 3. Poor appetite: Continue IV fluids. Encourage oral intake. 4. UTI: Patient has continued to have urinary symptoms. Nunez catheter is in place currently due to difficulty with ambulation and pain. Start Rocephin. 5. Neuropathy, bilateral foot drop: Continue Lyrica, Cymbalta. Physical therapy. Continue pain control. Patient is requesting to have her pain medications adjusted. Consult palliative care for assistance with pain control. 6. Poor prognosis: Consult palliative care. 7. DVT prophylaxis: Lovenox. Brenden Blake MD Jan 22, 2018 11:35
[2018-01-22] MEDS: cefTRIAXone INJ 1,000 MG in SODIUM CHLORIDE 0.9% INJ 100 ML IV SCH (12:00)
--- NOTE | 2018-01-22 15:15 | EKG ---
Date Performed: 01/21/2018 Time Performed: 18:06:10 PTAGE: 62 years EKG: Sinus rhythm WITH SHORT HI INTERVAL Nonspecific inferolateral ST-T changes PREVIOUS TRACING : 01/02/2018 11.19 Since previous tracing, the T-wave changes inferiorly and laterally are slightly more prominent. DOCTOR: Brandon Field Interpretating Date/Time 01/22/2018 15:14:31
[2018-01-22] MEDS: ENOXAPARIN SODIUM 40 MG/0.4 ML SYRINGE SQ SCH (18:00)
[2018-01-22 19:51] VITALS: BP 124/64; PULSE 81; RESP 16; TEMP 98.4; O2SAT 98
[2018-01-22] MEDS: MAGNESIUM HYDROXIDE SUSP 30 ML CUP PO PRN (20:01)
--- NOTE | 2018-01-23 00:08 | MB ---
cc: Marcio Rangel MD DATE: 01/22/2018 REASON FOR CONSULTATION: The patient with a history of stage IV pancreatic adenocarcinoma, who presented to the emergency department with chest pain and mid-epigastric pain. HISTORY OF PRESENT ILLNESS: This is a 62-year-old female who has a diagnosis of stage IV pancreatic adenocarcinoma, with extensive liver metastasis and lung metastases. She was recently seen in the oncology clinic. Previously, she was being treated for her pancreatic cancer at a treatment center in [place]. She was recently diagnosed with pancreatic cancer in August 2017, after she presented with abdominal pain. Imaging revealed a pancreatic mass. She underwent CT-guided biopsy, which confirmed metastatic, poorly differentiated adenocarcinoma, suggestive of pancreatic primary. She opted to move to [place] for her treatments. She was not a candidate for surgery upfront. At that time, she also underwent celiac plexus block for pain control. The patient was initiated on chemotherapy consisting of Abraxane and Gemzar and completed 4 cycles of regimen. Unfortunately, her treatment course was complicated by severe peripheral neuropathy. She was debilitated and was confined to a wheelchair. She has also developed progressive lower extremity weakness. Her last chemotherapy treatment was approximately 3 weeks ago, which was given in [place]. She now presents to the emergency department with mid-epigastric pain, chest discomfort, severe lower extremity weakness and poor appetite. She was admitted to the hospital. A Nunez catheter was placed. The patient had recently had recurrent UTI and she was on oral antibiotics. The patient was started on Rocephin during this hospital admission. The patient is currently resting in the bed. She is awake and alert. She denies any pain. She says her legs are very weak. Her ECOG performance status is 2. She has not had any fevers or chills. No cough or congestion. No lower extremity edema or pain. REVIEW OF SYSTEMS: A comprehensive review of system was completed, which is negative except as described in the HPI. PAST MEDICAL HISTORY: Stage IV pancreatic adenocarcinoma, basal cell carcinoma, gastroesophageal reflux disease, hemorrhoids, hepatitis, history of liver metastases. PAST SURGICAL HISTORY: Colonoscopy in 2013, back surgery in 1989, tubal ligation in 1978. MEDICATIONS: Duloxetine 1 tablet daily, Lyrica, magnesium, milk thistle, pantoprazole 40 mg daily, vitamin E, Dilaudid 1 mg IV every 3 hours p.r.n., ceftriaxone, oxycodone 5 mg p.o. q. 4 hours p.r.n. ALLERGIES: NO KNOWN DRUG ALLERGIES. FAMILY HISTORY: Reviewed and is noncontributory to this admission. SOCIAL HISTORY: She lives at her home. She has good social support. She denies smoking cigarettes. She does not drink alcohol. No illicit drug use. PHYSICAL EXAMINATION: VITAL SIGNS: Blood pressure is 124/64, pulse is in the 80s, temperature is 98.4, O2 saturations are 98% on room air. GENERAL: Ill-appearing, cachectic, weak female in no apparent distress. HEENT: Pupils are equal, round, reactive to light. EOMI. No thrush or lesions. NECK: Supple. No JVD. No bruits. No lymphadenopathy. CHEST: Clear to auscultation bilaterally. CARDIAC: S1, S2. Regular rate and rhythm. ABDOMEN: Mildly tender in the right upper quadrant. EXTREMITIES: Without any edema, erythema, cyanosis. SKIN: Without any petechiae, lesion or bruises. NEUROLOGIC: No focal deficits. PSYCHIATRIC: Mood and affect is appropriate. MUSCULOSKELETAL: Decreased bilateral lower extremity strength 3/5. She has a sensation of tingling and numbness of bilateral feet. LABORATORY DATA: WBC 12.2, hemoglobin 13.4, platelet count 261. Serum chemistry: Sodium 142, potassium 3.6, chloride 105, BUN is 8, creatinine is 0.64, glucose 85, calcium is 8.8, total bilirubin is 0.8, AST 39, ALT is 20, alkaline phosphatase is 128. IMAGING: CT of the chest was completed in the Emergency Department, which did not show any pneumonia or acute cardiopulmonary disease. A 1 cm mass was seen in the right lower lobe, which has not changed. Wide spread metastatic disease of the liver was noted again. ASSESSMENT AND PLAN: This is a 62-year-old female with a diagnosis of stage IV pancreatic adenocarcinoma with metastasis to the liver and lung, who was admitted to the hospital with abdominal discomfort, lower extremity pain and weakness and poor oral intake. 1. Abdominal pain, primarily in the mid-epigastric region, likely due to the metastatic disease. She has had significant disease in the liver. Her treatments were currently on hold due to worsening peripheral neuropathy and severe lower extremity weakness. We will obtain a CT of the abdomen and pelvis to reassess her malignancy. She is not a candidate for systemic chemotherapy at this time due to her poor functional status. I would recommend focusing on nutrition, physical therapy and possibly going to rehab. I would also recommend consulting Palliative care to discuss goals of care with the patient. 2. History of recurrent urinary tract infections. Agree with Rocephin. We will obtain UA and urine culture. 3. Chest pain. Cardiac etiology is less likely. She did have serial cardiac enzymes, which were negative. 4. Peripheral neuropathy. Continue Lyrica. Continue duloxetine. Continue pain control. 5. Stage IV pancreatic adenocarcinoma. No further treatment at this time, until she improves clinically. We will also need to define goals of care. I did explain to her that she has stage IV disease, which is not curative. All treatments are palliative in nature. The goal of the treatment is to preserve the quality of her life and to keep the disease under control without giving her excessive toxicity. Thank you for allowing me to participate in the care of this patient. I will continue to follow this patient along. MD DIEGO Roa/TRICIA , 11:01 PM , 12:07 AM
[2018-01-23 00:11] VITALS: BP 131/62; PULSE 73; RESP 16; TEMP 98.2; O2SAT 97
[2018-01-23] MEDS: HYDROmorphone HCL PF 0.5 MG/0.5 ML SYRINGE IV PRN ×4 (02:32→13:19)
[2018-01-23 04:03] VITALS: BP 160/72; PULSE 70; RESP 16; TEMP 98.1; O2SAT 100
[2018-01-23 08:00] VITALS: BP 135/68; PULSE 78; RESP 20; TEMP 98; O2SAT 100
[2018-01-23] MEDS: DULoxetine HCl DR 30 MG CAP PO SCH (08:57)
[2018-01-23] MEDS: SODIUM CHLORIDE 0.9% FLUSH 10 ML FLUSH IV FLUSH SCH ×2 (08:57→20:08)
[2018-01-23] MEDS: PANTOPRAZOLE SOD 40 MG DELAYED RELEASE TAB PO SCH ×2 (08:57→20:01)
[2018-01-23] MEDS: SODIUM CHLOR 0.9% 1000 ML INJ 1,000 ML IV SCH ×2 (08:59→18:13)
--- NOTE | 2018-01-23 10:12 | HHI.PR ---
Subjective Remarks Follow up pain, UTI. Patient states that her leg pain is slightly better. Still with 6/10 pain at this time. No chest pain or dyspnea. No nausea/vomiting. Objective Vitals Vital Signs Date Time Temp Pulse Resp B/P (MAP) Pulse Ox O2 Delivery O2 Flow Rate FiO2 01/23/18 08:00 98.0 78 20 135/68 (90) 100 01/23/18 04:03 98.1 70 16 160/72 (101) 100 01/23/18 03:10 16 01/23/18 00:11 98.2 73 16 131/62 (85) 97 01/22/18 21:15 16 01/22/18 20:30 16 01/22/18 19:51 98.4 81 16 124/64 (84) 98 I/O 01/22/18 01/22/18 01/22/18 01/23/18 01/23/18 01/23/18 07:00 15:00 23:00 07:00 15:00 23:00 Output Total 450 ml Balance -450 ml Output Urine Total 450 ml Result Diagram: 01/22/18 0440 01/22/18 0440 Imaging Last Impressions Chest CT 01/21/18 1310 Signed Impressions: CONCLUSION: 1. No pneumonia or other acute cardiopulmonary disease. 2. 1 cm mass of the right lower lobe is without significant change. 3. Widespread metastatic disease of the liver again noted. 4. Mild emphysema. Objective Remarks General: No acute distress. Appears older than stated age. Heart: Regular rate and rhythm. No murmur. Lungs: Clear to auscultation bilaterally. No wheezes, rales, or rhonchi. Breathing is nonlabored. Abdomen: Soft, nontender, nondistended. Extremities: No lower extremity edema. Psych: Alert and oriented. Neuro: Normal speech. No focal deficits noted. Procedures None Urinary Catheter: Yes Assessment to: Remove Vascular Central Line Catheter: No A/P Assessment and Plan 1. Chest pain: Serial cardiac enzymes are negative. Likely not cardiac in etiology. 2. Metastatic pancreatic cancer: Continue pain control. Consult patient's oncologist. 3. Poor appetite: Continue IV fluids. Encourage oral intake. 4. UTI: Patient has continued to have urinary symptoms. Continue Rocephin. Remove Nunez catheter. 5. Neuropathy, bilateral foot drop: Continue Lyrica, Cymbalta. Physical therapy. Continue pain control. Palliative care to assist with pain management. Patient received 2 doses of Lyrica last night, so this morning's dose was held. 6. Poor prognosis: Palliative care consult is pending. 7. DVT prophylaxis: Lovenox. Discharge Planning Pending clinical improvement. Brenden Blake MD Jan 23, 2018 10:12
--- NOTE | 2018-01-23 11:23 | PD.CONS ---
Consult Service Palliative Care . Consult Requested By Dr. Blake . Primary Care Physician Lisa Espino MD . Reason for Consultation a. To assist with evaluation and management of symptoms including: neuropathy, pain, weakness and decreased appetite. b. To assist medical decision maker(s) with: better understanding of current medical conditions; weighing benefits/burdens of medical treatment options; making medical treatment decisions. . HPI History of Present Illness Ms. Ramsey is a 52 year old female with past medical history of Stage IV pancreatic adenocarcinoma with mets to liver, basal cell carcinoma, GERD, anxiety. depression, neuropathy, hemorrhoids and hepatitis. She was diagnosed with stage IV pancreatic adenocarcinoma with mets to liver in August 2017. She was not a candidate for surgery. She was started on chemotherapy (Abraxane and Gemzar), she has completed 4 cycles. She developed severe peripheral neuropathy that left her so debilitated that she was confined to a wheelchair. Her last chemotherapy was about 3 weeks ago. She was recently treated for UTI. Patient presented to [facility] emergency department on 01/21/18 with leg pain rated 8/10 described as burning type pain that had been there for months since chemotherapy. She also reported epigastric pressure, nonradiating rated 3/ 10. She also has had severe lower extremity weakness, decreased appetite. Pain was not relieved with daily Lyrica or hydromorphone 4mg PO every 3 hours PRN pain. She reported new onset chest pain. Initial evaluation revealed: * VS: Temp 98.4, pulse 80, respirations 16, BP 114/60, oxygen saturation 99% on room air * WBC 9.7, hemoglobin 12.5, hematocrit 38.4, platelet count 259, neutrophils 73.7% * BUN 11, creatinine 0.69, glucose 95, calcium 9.0, sodium 141, potassium 4.2, chloride 102, carbon dioxide 26.1, GFR 86 * Total protein 6.4, albumin 3.1 * Total bilirubin 0.7, alkaline phosphatase 124, AST 34, ALT 20 * Troponin less than 0.02 * Lipase 41 * CT chest -no pneumonia or acute cardiopulmonary disease, 1 cm mass in the right lower lobe, widespread metastatic disease of the liver, mild emphysema. * EKG sinus rhythm with short AR interval, nonspecific inferolateral ST-T changes Patient was admitted for evaluation of chest pain. Dr. Rangel, medical oncology was consulted. Dr. Rangel's note states no additional palliative treatment until clinical improvement, disease is not curable. He recommends defining goals of medical care. She is currently getting Hydromorphone 1mg IV every 3 hours PRN pain - she has had 3 doses in the past 24 hours. PRN Roxicodone available, none given. Palliative care is consulted to assist with further clarification of goals and to assist with symptom management. . Function/Cognitive Trajectory Severe debility due to peripheral neuropathy, now bedbound. She is dependent for ADLs. She is able to feed herself. . Review of Systems Constitutional: COMPLAINS OF: Fatigue, Change in appetite (decreased), Generalized weakness, Sleep problems Endocrine: DENIES: Abnorml menstrual pattern, Heat/cold intolerance, Polydipsia , Polyuria, Polyphagia Eyes: DENIES: Blurred vision, Diplopia, Eye inflammation, Eye pain, Vision loss , Photosensitivity, Double Vision, Blind spots Respiratory: DENIES: Apneas, Cough, Snoring, Wheezing, Hemoptysis, Sputum production, Shortness of breath Cardiovascular: DENIES: Chest pain, Palpitations, Syncope, Dyspnea on Exertion , PND, Lower Extremity Edema, Orthopnea, Claudication Gastrointestinal: COMPLAINS OF: Abdominal pain, Anorexia, Dyspepsia or heartburn Genitourinary: DENIES: Abnormal vaginal bleeding, Dysmenorrhea, Dyspareunia, Sexual dysfunction, Urinary frequency, Urinary incontinence, Urgency, Hematuria , Dysuria, Nocturia, Vaginal discharge, Hesitancy, Dribbling, Decreased stream Musculoskeletal: COMPLAINS OF: Back pain Integumentary: DENIES: Abnormal pigmentation, Pruritus, Rash, Nail changes, Breast masses, Breast skin changes, Nipple discharge, Nodules, Tumors, Excessive dryness, Non-healing sores Hematologic/Lymphatics: COMPLAINS OF: Bruising Immunologic/Allergic: DENIES: Eczema, Urticaria Neurologic: COMPLAINS OF: Paresthesias, Poor Balance Psychiatric: COMPLAINS OF: Anxiety, Depression Past Family Social History Coded Allergies: No Known Allergies (Unverified , 01/21/18) Past Medical History Basal Call Carcinoma left lower extremity Metastatic pancreatic cancer to liver Neuropathy Bilateral foot drop Anxiety Depression GERD Hemorrhoids Hepatitis . Past Surgical History Tubal ligation 1978 Oral surgery Back surgery 1989 Left lower extremity excision of skin cancer Colonoscopy [address] directed biopsy of pancreatic mass . Reported Medications Reported Meds & Active Scripts Active Reported [azocranberry] 2 Tab PO DAILY Cephalexin 500 Mg Cap 500 Mg PO TID Mag Glycinate (Magnesium Glycinate) 100 Mg Tablet 4 Tab PO DAILY Milk Thistle 150 Mg Cap 1 Cap PO DAILY Duloxetine DR (Duloxetine HCl) 30 Mg Capdr 30 Mg PO DAILY Lyrica (Pregabalin) 150 Mg Cap 150 Mg PO BID Pantoprazole (Pantoprazole Sodium) 40 Mg Tab 40 Mg PO BID Hydromorphone (Hydromorphone HCl) 4 Mg Tab 4 Mg PO Q3HR PRN . Current Medications Medications (Trade) Dose Ordered Sig/Marilyn Route Start Time Stop Time Status Last Admin (Cymbalta Dr) 30 mg DAILY PO 01/22/18 09:00 01/23/18 08:57 (Protonix) 40 mg BID PO 01/21/18 21:00 01/23/18 08:57 (Lyrica) 150 mg BID PO 01/21/18 21:00 01/22/18 21:00 Sodium Chloride 1,000 ml @ 100 mls/hr Q10H IV 01/21/18 18:00 01/22/18 23:50 (NS Flush) 2 ml UNSCH PRN IV FLUSH 01/21/18 17:45 (NS Flush) 2 ml BID IV FLUSH 01/21/18 21:00 01/22/18 20:04 (Tylenol) 650 mg Q4H PRN PO 01/21/18 17:45 (Compazine Supp) 25 mg Q12H PRN RECTAL 01/21/18 17:45 (Lovenox Inj) 40 mg Q24H SQ 01/21/18 18:00 01/22/18 18:00 (Narcan Inj) 0.4 mg UNSCH PRN IV PUSH 01/21/18 17:45 (Milk Of Magnesia Liq) 30 ml Q12H PRN PO 01/21/18 17:45 01/22/18 20:01 (Senokot) 17.2 mg Q12H PRN PO 01/21/18 17:45 (Dulcolax Supp) 10 mg DAILY PRN RECTAL 01/21/18 17:45 (Zofran Odt) 4 mg Q6H PRN PO 01/21/18 17:45 Ceftriaxone Sodium 1000 mg/ Sodium Chloride 100 ml @ 200 mls/hr Q24H IV 01/22/18 12:00 01/22/18 12:00 (Roxicodone) 5 mg Q4H PRN PO 01/22/18 11:45 (Roxicodone) 10 mg Q4H PRN PO 01/22/18 11:45 (Dilaudid Pf Inj) 1 mg Q3H PRN IV 01/22/18 20:00 01/23/18 08:59 Family History Mother of old age. Father of diabetes complications. 1 brother and 1 sister alive with heart disease s/p CABG. 1 sister alive with breast cancer and rheumatoid arthritis. 1 brother of pancreatic cancer. 1 sister of likely liver disease. 1 sister estranged unknown health. 1 brother of lung cancer. . Substance Use Tobacco: Prior smoker. Alcohol: None recent, prior social alcohol use. Prescription med abuse: Denies. Illicits:Denies. . Psychosocial History Single. Lives with her daughter and grandchildren. . Spiritual/Cultural Factors Orthodox solomon. . Living Will: Never completed Health Care Surrogate: Completed, but not made available Durable Power of [employer] Service Technician: Completed, but not made available Health Care Surrogate(s): Patient is currently capacitated to make her own decisions. Has DPOA paperwork that names her daughter Taisha Moya as health care surrogate, daughter will bring copy to next visit. In the absence of written advanced directives, according to [place] statutes health care proxy decision making would fall to her son and daughter. Pt. indicates she wants her daughter to make decisions. If DPOA does not include health care decisions, I will assist in completion of advanced directives. . Today's verbally stated goals: Goals: Patient is going to think about her goals. For now she is hoping to get strong enough for further chemotherapy, though understands it is palliative. She seems to be considering whether or not she wants additional chemotherapy understanding the risks due to severe debility. She is considering CODE STATUS. She and daughter are open to consideration of starting Methadone for pain control. Patient indicates she prefers adequate pain management even if it leaves her sleepy. Family/friends goals: DaughterTaisha supports anything the patient wants. . Ethical and Legal Issues Patient is currently capacitated to make her own decisions. Has DPOA paperwork that names her daughter Taisha Moya as health care surrogate, daughter will bring copy to next visit. In the absence of written advanced directives, according to [place] statutes health care proxy decision making would fall to her son and daughter. Pt. indicates she wants her daughter to make decisions. If DPOA does not include health care decisions, I will assist in completion of advanced directives. Physical Exam Vital Signs Date Time Temp Pulse Resp B/P (MAP) Pulse Ox O2 Delivery O2 Flow Rate FiO2 01/23/18 08:00 98.0 78 20 135/68 (90) 100 01/23/18 04:03 98.1 70 16 160/72 (101) 100 01/23/18 03:10 16 01/23/18 00:11 98.2 73 16 131/62 (85) 97 01/22/18 21:15 16 01/22/18 20:30 16 01/22/18 19:51 98.4 81 16 124/64 (84) 98 Exam CONSTITUTIONAL/GENERAL: This is an thin patient, in no apparent distress. TUBES/LINES/DRAINS: PIV left, Nunez, SCDs. SKIN: No jaundice, rashes, or lesions. Ecchymoses on upper extremities. No wounds seen anteriorly. Skin temperature appropriate. Not diaphoretic. HEAD: Alopecia. Atraumatic. Normocephalic. EYES: Pupils equal and round and reactive. Extraocular motions intact. No scleral icterus. No injection or drainage. Fundi not examined. ENT: No teeth. Wears dentures. Hearing grossly normal. Nose without bleeding or purulent drainage. Throat without exudate. NECK: Trachea midline. Supple, nontender. CARDIOVASCULAR: Regular rate and rhythm without murmurs, gallops, or rubs. No JVD. Peripheral pulses symmetric. RESPIRATORY/CHEST: Symmetric, unlabored respirations. Clear to auscultation. Breath sounds equal bilaterally. No wheezes, rales, or rhonchi. GASTROINTESTINAL: Abdomen soft, non-tender, nondistended. No guarding. Bowel sounds present. GENITOURINARY: Without palpable bladder distension. Nunez catheter in place. MUSCULOSKELETAL: Extremities without clubbing, cyanosis, or edema. No mottling or clubbing. LYMPHATICS: No palpable cervical or supraclavicular adenopathy. NEUROLOGICAL: Awake and alert. Follows commands. Cognitively sharp. Bilateral foot drop. Bilateral LE weakness, only able to lift feet off bed a few inches. PSYCHIATRIC: No obvious anxiety/depression. no apparent hallucinations or other psychotic thought process. . Diagnostic Tests Laboratory Laboratory Tests Test 01/21/18 13:44 01/21/18 18:00 01/22/18 01:07 01/22/18 04:40 White Blood Count 9.7 TH/MM3 (4.0-11.0) 12.2 TH/MM3 (4.0-11.0) Red Blood Count 4.18 MIL/MM3 (4.00-5.30) 4.45 MIL/MM3 (4.00-5.30) Hemoglobin 12.5 GM/DL (11.6-15.3) 13.4 GM/DL (11.6-15.3) Hematocrit 38.4 % (35.0-46.0) 41.1 % (35.0-46.0) Mean Corpuscular Volume 92.0 FL (80.0-100.0) 92.4 FL (80.0-100.0) Mean Corpuscular Hemoglobin 30.0 PG (27.0-34.0) 30.1 PG (27.0-34.0) Mean Corpuscular Hemoglobin Concent 32.6 % (32.0-36.0) 32.5 % (32.0-36.0) Red Cell Distribution Width 18.4 % (11.6-17.2) 18.5 % (11.6-17.2) Platelet Count 259 TH/MM3 (150-450) 261 TH/MM3 (150-450) Mean Platelet Volume 9.4 FL (7.0-11.0) 9.5 FL (7.0-11.0) Neutrophils (%) (Auto) 73.7 % (16.0-70.0) 71.4 % (16.0-70.0) Lymphocytes (%) (Auto) 14.2 % (9.0-44.0) 16.7 % (9.0-44.0) Monocytes (%) (Auto) 9.8 % (0.0-8.0) 8.9 % (0.0-8.0) Eosinophils (%) (Auto) 1.5 % (0.0-4.0) 2.2 % (0.0-4.0) Basophils (%) (Auto) 0.8 % (0.0-2.0) 0.8 % (0.0-2.0) Neutrophils # (Auto) 7.2 TH/MM3 (1.8-7.7) 8.7 TH/MM3 (1.8-7.7) Lymphocytes # (Auto) 1.4 TH/MM3 (1.0-4.8) 2.0 TH/MM3 (1.0-4.8) Monocytes # (Auto) 1.0 TH/MM3 (0-0.9) 1.1 TH/MM3 (0-0.9) Eosinophils # (Auto) 0.2 TH/MM3 (0-0.4) 0.3 TH/MM3 (0-0.4) Basophils # (Auto) 0.1 TH/MM3 (0-0.2) 0.1 TH/MM3 (0-0.2) CBC Comment DIFF FINAL DIFF FINAL Differential Comment Blood Urea Nitrogen 11 MG/DL (7-18) 8 MG/DL (7-18) Creatinine 0.69 MG/DL (0.50-1.00) 0.64 MG/DL (0.50-1.00) Random Glucose 95 MG/DL (74-106) 85 MG/DL (74-106) Total Protein 6.4 GM/DL (6.4-8.2) 6.6 GM/DL (6.4-8.2) Albumin 3.1 GM/DL (3.4-5.0) 3.1 GM/DL (3.4-5.0) Calcium Level 9.0 MG/DL (8.5-10.1) 8.8 MG/DL (8.5-10.1) Alkaline Phosphatase 124 U/L (45-117) 128 U/L (45-117) Aspartate Amino Transf (AST/SGOT) 34 U/L (15-37) 39 U/L (15-37) Alanine Aminotransferase (ALT/SGPT) 20 U/L (10-53) 20 U/L (10-53) Total Bilirubin 0.7 MG/DL (0.2-1.0) 0.8 MG/DL (0.2-1.0) Sodium Level 141 MEQ/L (136-145) 142 MEQ/L (136-145) Potassium Level 4.2 MEQ/L (3.5-5.1) 3.6 MEQ/L (3.5-5.1) Chloride Level 102 MEQ/L (98-107) 105 MEQ/L (98-107) Carbon Dioxide Level 26.1 MEQ/L (21.0-32.0) 23.2 MEQ/L (21.0-32.0) Anion Gap 13 MEQ/L (5-15) 14 MEQ/L (5-15) Estimat Glomerular Filtration Rate 86 ML/MIN (>89) 94 ML/MIN (>89) Troponin I LESS THAN 0.02 NG/ML LESS THAN 0.02 NG/ML LESS THAN 0.02 NG/ML Lipase 41 U/L (73-393) Result Diagram: 01/22/1843901/22/18439 Microbiology Microbiology Date/Time Source Procedure Growth Status 01/21/18 14:10 Urine Catheterized Urine Urine Culture - Preliminary NO GROWTH IN 24 HOURS. Resulted Imaging Last Impressions Chest CT 01/21/18 1310 Signed Impressions: CONCLUSION: 1. No pneumonia or other acute cardiopulmonary disease. 2. 1 cm mass of the right lower lobe is without significant change. 3. Widespread metastatic disease of the liver again noted. 4. Mild emphysema. . Patient/Family Conference Present at Family Conference: Met with patient, daughter and granddaughter. . Family Conference Time (mins): 120 Family Conference Location: Bedside Issues Discussed: * Palliative care role, purpose, approach * Additional medical, psychosocial, and spiritual history * Patients general health, functional status, and cognitive changes in the months leading up to the current hospitalization * Patient/family understanding of the current medical problems * Patient/family understanding of prognosis * Patients goals of care as best understood from advance directives and/or conversations and/or values * Current medical treatment options and benefits/burdens of those options * Likely scenarios comparing ongoing aggressive care with a transition to comfort measures only * Questions answered to the best of my ability * Palliative care contact information provided Assessment and Plan Disease Oriented Problem List: (1) UTI (urinary tract infection) (2) Epigastric pain (3) Peripheral neuropathy (4) Weakness (5) Decreased appetite (6) Pancreatic cancer metastasized to liver (7) Lung mass Symptom Scale: (1) Epigastric pain 0-10 Scale: 7 (2) Weakness 0-10 Scale: Unable to quantify (3) Peripheral neuropathy 0-10 Scale: 7 (4) Decreased appetite 0-10 Scale: Unable to quantify Comment: eating small amounts. Pertinent Non-Medical Issues Psychosocial: Single. Has 1 daughter and 1 son. Lives with her daughterTaisha. Spiritual: Orthodox solomon. Legal:Patient is currently capacitated to make her own decisions. Has DPOA paperwork that names her daughter Taisha Moya as health care surrogate, daughter will bring copy to next visit. In the absence of written advanced directives, according to [place] statutes health care proxy decision making would fall to her son and daughter. Pt. indicates she wants her daughter to make decisions. If DPOA does not include health care decisions, I will assist in completion of advanced directives. Ethical issues impacting care: None. Important Contacts * Taisha Moya, daughter: [phone] * Dylan Miller, friend: [phone] . Prognosis Miss Ramsey is a 62 year old female with metastatic pancreatic cancer to liver and possible lung. 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 She was admitted for pain and recurrent UTI. Cancer is not curable. Overall prognosis is poor. Hospice appropriate if goals are comfort oriented. . Code Status: Full Code Plan * Patient is currently capacitated to make her own decisions. Has DPOA paperwork that names her daughter Taisha Moya as health care surrogate, daughter will bring copy to next visit. In the absence of written advanced directives, [facility] proxy decision making would fall to her son and daughter. Pt. indicates she wants her daughter to make decisions. If DPOA does not include health care decisions, I will assist in completion of advanced directives. * FULL CODE - considering DNR, she and daughter would like to talk more about this. * Goals: Patient is going to think about her goals. For now she is hoping to get strong enough for further chemotherapy, though understands it is palliative. She seems to be considering whether or not she wants additional chemotherapy understanding the risks due to severe debility. She is considering CODE STATUS. She and daughter are open to consideration of starting Methadone for pain control. Patient indicates she prefers adequate pain management even if it leaves her sleepy. * Discussed plan for symptom management with patient, daughter, Dr. Rangel and Dr. Blake. Claire Pena indicates he will prescribe as outpatient. * Reviewed EKG QTC 403. Will start Methadone 5mg PO every 12 hours ATC. * SYMPTOMS; Severe neuropathy: In fingers and bilateral LEs with bilateral foot drop secondary to chemotherapy. Will add Methadone. Pain: in epigastric and bilateral LE and neuropathic pain in bilateral LEs and fingers. Weakness: due to malignancy, decreased appetite, severe neuropathy and inability to walk due to PN. Decreased appetite: due to malignancy. * Palliative care number provided. * Palliative care will continue to follow to assist with symptom management and clarification of treatment goals throughout hospital course. . Thank you for the opportunity to participate in the care of Ms. Ramsey. Attestation To help prompt me to consider important information that might be impacting today's encounter and assessment, information from prior notes written by myself or my colleagues may have been "brought forward" into today's note. My signature on this note, however, is an attestation that I personally performed the exam, history, and/or decision-making noted today, and, unless otherwise indicated, the interactions with patient, family, and staff as well as the review of records all occurred today. I also attest that the listed assessment and stated plan reflect my best clinical judgment today based on the combination of historical information, prior notes, and today's exam/ interactions. When time spent is documented, it refers only to time spent today by the signer, or if indicated, combined time spent today by collaborating physician/nurse practitioner. Jovanna Booker Jan 23, 2018 11:07
[2018-01-23 11:26] LABS: BACTERIA, URINE RARE /hpf; BILIRUBIN, URINE NEG (NEG); BLOOD, URINE MOD (NEG); GLUCOSE,URINE NEG (NEG); HYALINE CAST, URINE 9 /lpf (RARE); KETONE, URINE TRACE mg/dL (NEG); MUCUS URINE MANY /lpf (OCC); NITRITE,URINE NEG (NEG); PH, URINE 6.5 (5.0-8.5); URINE COLOR YELLOW (YELLW/STRAW); URINE LEUKOCYTE ESTERASE LARGE (NEG); WHITE BLOOD CELL CLUMPS RARE
[2018-01-23] MEDS: cefTRIAXone INJ 1,000 MG in SODIUM CHLORIDE 0.9% INJ 100 ML IV SCH (11:33)
[2018-01-23 11:52] LABS: AUTOMATED NEUTROPHIL # 7.2 TH/MM3 (1.8-7.7); BASOPHIL # 0.1 TH/MM3 (0-0.2); BASOPHIL % 0.9 % (0.0-2.0); EOSINOPHIL # 0.3 TH/MM3 (0-0.4); EOSINOPHIL % 2.6 % (0.0-4.0); HEMATOCRIT 35.2 % (35.0-46.0); HEMOGLOBIN 11.3 GM/DL (11.6-15.3); LYMPH % 13.8 % (9.0-44.0); LYMPHOCYTE # 1.3 TH/MM3 (1.0-4.8); MEAN CELL VOLUME 91.9 FL (80.0-100.0); MEAN CORPUSCULAR HEMOGLOBIN 29.6 PG (27.0-34.0); MEAN CORPUSCULAR HGB CONC 32.2 % (32.0-36.0); MEAN PLATELET VOLUME 9.1 FL (7.0-11.0); MONO % 8.4 % (0.0-8.0); MONOCYTE # 0.8 TH/MM3 (0-0.9); NEUT % 74.3 % (16.0-70.0); PLATELET COUNT 191 TH/MM3 (150-450); RED BLOOD COUNT 3.83 MIL/MM3 (4.00-5.30); RED CELL DISTRIBUTION WIDTH 17.8 % (11.6-17.2); WHITE BLOOD COUNT 9.7 TH/MM3 (4.0-11.0)
[2018-01-23 12:40] VITALS: BP 144/64; PULSE 72; RESP 20; TEMP 98; O2SAT 100
[2018-01-23] MEDS ORDERED: PILL SPLITTER OTHER PRN (14:30)
[2018-01-23 15:47] VITALS: BP 128/65; PULSE 78; RESP 20; TEMP 98; O2SAT 99
[2018-01-23] MEDS ORDERED: AZO-450T PO (15:48)
[2018-01-23] MEDS: ENOXAPARIN SODIUM 40 MG/0.4 ML SYRINGE SQ SCH (18:13)
[2018-01-23 19:34] VITALS: BP 133/63; PULSE 70; RESP 16; TEMP 98.4; O2SAT 100
[2018-01-23] MEDS: PREGABALIN 75 MG CAP PO SCH (20:01)
[2018-01-23] MEDS: METHADONE HCL 10 MG TAB PO SCH (20:02)
[2018-01-24] VITALS (10 sets, daily range): BP systolic 93–145; BP diastolic 55–70; PULSE 66–96; RESP 16–20; TEMP 97.2–98.5; O2SAT 97–100
[2018-01-24] MEDS: SODIUM CHLOR 0.9% 1000 ML INJ 1,000 ML IV SCH (08:00)
[2018-01-24] MEDS: DULoxetine HCl DR 30 MG CAP PO SCH (08:03)
[2018-01-24] MEDS: PANTOPRAZOLE SOD 40 MG DELAYED RELEASE TAB PO SCH ×2 (08:03→21:43)
[2018-01-24] MEDS: SODIUM CHLORIDE 0.9% FLUSH 10 ML FLUSH IV FLUSH SCH ×2 (08:03→21:43)
[2018-01-24] MEDS: PREGABALIN 75 MG CAP PO SCH ×2 (08:03→21:43)
[2018-01-24] MEDS: METHADONE HCL 10 MG TAB PO SCH ×2 (08:04→21:43)
[2018-01-24] MEDS: cefTRIAXone INJ 1,000 MG in SODIUM CHLORIDE 0.9% INJ 100 ML IV SCH (11:07)
[2018-01-24] MEDS: DOCUSATE SODIUM 50 MG/SENNA 8.6 MG TAB PO SCH ×2 (11:09→21:42)
--- NOTE | 2018-01-24 11:28 | PD.ONC.PN ---
Subjective Subjective Remarks Afebrile overnight. patient resting in bed in nad. states the neuropathy in the left leg has improved. but notes that the right leg neuropathy is persistent. she is sad that the neuropathy has gotten so badly that treatment had to be stopped. she expresses frustration with her treatment team in [place]. she is hopeful to get to a regular hospital room today. reports she would like to be able to take a shower soon. Objective Data Date Time Temp Pulse Resp B/P (MAP) Pulse Ox O2 Delivery O2 Flow Rate FiO2 01/24/18 08:00 97.2 66 20 145/66 (92) 100 01/24/18 03:08 98.4 67 16 118/58 (78) 98 01/24/18 01:24 18 01/24/18 00:57 98.4 73 17 125/63 (83) 97 01/23/18 20:54 18 01/23/18 20:54 18 01/23/18 19:34 98.4 70 16 133/63 (86) 100 01/23/18 15:47 98.0 78 20 128/65 (86) 99 01/23/18 12:40 98.0 72 20 144/64 (90) 100 01/24/18 01/24/18 01/24/18 07:00 15:00 23:00 Output Total 500 ml 200 ml Balance -500 ml -200 ml Result Diagram: 01/23/18 1055 01/22/18 0440 Culture Results Microbiology Date/Time Source Procedure Growth Status 01/23/18 10:45 Urine Catheterized Urine Urine Culture Pending Received 01/21/18 14:10 Urine Catheterized Urine Urine Culture - Final Delisa Albicans Complete Administered Medications Medications (Trade) Dose Ordered Sig/Marilyn Route PRN Reason Start Time Stop Time Status Last Admin Dose Admin Duloxetine HCl (Cymbalta Dr) 30 mg DAILY PO 01/22/18 09:00 01/24/18 08:03 Pantoprazole Sodium (Protonix) 40 mg BID PO 01/21/18 21:00 01/24/18 08:03 Pregabalin (Lyrica) 150 mg BID PO 01/21/18 21:00 01/24/18 08:03 Sodium Chloride 1,000 ml @ 100 mls/hr Q10H IV 01/21/18 18:00 01/23/18 18:13 Sodium Chloride (NS Flush) 2 ml BID IV FLUSH 01/21/18 21:00 01/24/18 08:03 Enoxaparin Sodium (Lovenox Inj) 40 mg Q24H SQ 01/21/18 18:00 01/23/18 18:13 Magnesium Hydroxide (Milk Of Magnsteffanie Liq) 30 ml Q12H PRN PO Mild constipation 01/21/18 17:45 01/22/18 20:01 Sennosides (Senokot) 17.2 mg Q12H PRN PO Moderate constipation 01/21/18 17:45 01/23/18 09:53 Ondansetron HCl (Zofran Odt) 4 mg Q6H PRN PO NAUSEA OR VOMITING 01/21/18 17:45 01/23/18 20:01 Ceftriaxone Sodium 1000 mg/ Sodium Chloride 100 ml @ 200 mls/hr Q24H IV 01/22/18 12:00 01/24/18 11:07 Oxycodone HCl (Roxicodone) 10 mg Q4H PRN PO PAIN SCALE 6 TO 10 01/22/18 11:45 01/24/18 11:08 Hydromorphone HCl (Dilaudid Pf Inj) 1 mg Q3H PRN IV pain >5, if unable to take po 01/22/18 20:00 01/23/18 13:19 Methadone HCl (Dolophine) 5 mg Q12HR PO 01/23/18 21:00 01/24/18 08:04 Senna/Docusate Sodium (Kristen-Colace) 2 tab BID PO 01/24/18 10:30 01/24/18 11:09 Objective Remarks GENERAL: pleasant chronically ill appearing female, sitting up in bed in nad SKIN: Warm and dry. HEAD: Normocephalic. +alopecia EYES: No scleral icterus. No injection or drainage. NECK: Supple, trachea midline. CARDIOVASCULAR: Regular rate and rhythm. RESPIRATORY: Breath sounds equal bilaterally. No accessory muscle use. GASTROINTESTINAL: Abdomen soft, non-tender, nondistended. EXTREMITIES: No cyanosis NEUROLOGICAL: awake and alert. normal speech. moving extremities. Assessment/Plan Problem List: (1) Epigastric pain ICD Codes: R10.13 - Epigastric pain (2) UTI (urinary tract infection) ICD Codes: N39.0 - Urinary tract infection, site not specified (3) Decreased appetite ICD Codes: R63.0 - Anorexia (4) Pancreatic cancer metastasized to liver ICD Codes: C25.9 - Malignant neoplasm of pancreas, unspecified; C78.7 - Secondary malignant neoplasm of liver and intrahepatic bile duct Assessment 62y/o female with stage IV pancreatic adenocarcinoma admitted with chest pain and mid-epigastric pain. h/o basal cell carcinoma, gastroesophageal reflux disease, hemorrhoids, hepatitis, history of liver metastases. Plan 1. Abdominal pain, primarily in the mid-epigastric region -- likely due to mets --constipation also contributing. --needs functional status to improve before we can give further treatment. --palliative care following, appreciate assistance. --patient on Methadone, Oxycodone, Lyrica. 2. Recurrent UTI: on IV Rocephin 3. Peripheral neuropathy. Continue Lyrica +cymbalta 4. Constipation--start scheduled kristen-colace, continue PRN MoM Attending Statement The exam, history, and the medical decision-making described in the above note were completed with the assistance of the mid-level provider. I reviewed and agree with the findings presented. I attest that I had a [id number] encounter with the patient on the same day, and personally performed and documented my assessment and findings in the medical record. I had a long discussion with the patient. Discussed the fact that she has stage IV pancreatic cancer with refractory/progressive disease. She has developed significant peripheral neuropathy and lower ext weakness and is not ambulatory. In this situation systemic chemotherapy would likely cause further clinical deterioration. We talked about palliative care and hospice. Her wishes are to be comfortable. She stated that she does not want to give up but also realizes that further chemotherapy at this time is not feasible. She would like to spend time with family and be comfortable at home. She is leaning towards going home with hospice but like to talk over with the family. Nae Brandt Jan 24, 2018 11:28 Marcio Rangel MD Jan 24, 2018 22:03
--- NOTE | 2018-01-24 11:53 | HHI.PR ---
Subjective Remarks Follow-up neuropathy pain, abdominal pain, UTI. The patient states that her neuropathy pain control is improving. Abdominal pain has improved somewhat as well. Objective Vitals Vital Signs Date Time Temp Pulse Resp B/P (MAP) Pulse Ox O2 Delivery O2 Flow Rate FiO2 01/24/18 08:00 97.2 66 20 145/66 (92) 100 01/24/18 03:08 98.4 67 16 118/58 (78) 98 01/24/18 01:24 18 01/24/18 00:57 98.4 73 17 125/63 (83) 97 01/23/18 20:54 18 01/23/18 20:54 18 01/23/18 19:34 98.4 70 16 133/63 (86) 100 01/23/18 15:47 98.0 78 20 128/65 (86) 99 01/23/18 12:40 98.0 72 20 144/64 (90) 100 I/O 01/23/18 01/23/18 01/23/18 01/24/18 01/24/18 01/24/18 07:00 15:00 23:00 07:00 15:00 23:00 Output Total 450 ml 750 ml 500 ml 200 ml Balance -450 ml -750 ml -500 ml -200 ml Output Urine Total 450 ml 750 ml 500 ml 200 ml # Voids 1 5 2 Result Diagram: 01/23/18 1055 01/22/18 0440 Imaging Last Impressions Chest CT 01/21/18 1310 Signed Impressions: CONCLUSION: 1. No pneumonia or other acute cardiopulmonary disease. 2. 1 cm mass of the right lower lobe is without significant change. 3. Widespread metastatic disease of the liver again noted. 4. Mild emphysema. Objective Remarks General: No acute distress. Appears older than stated age. Heart: Regular rate and rhythm. No murmur. Lungs: Clear to auscultation bilaterally. No wheezes, rales, or rhonchi. Breathing is nonlabored. Abdomen: Soft, nontender, nondistended. Extremities: No lower extremity edema. Psych: Alert and oriented. Neuro: Normal speech. No focal deficits noted. Procedures None Urinary Catheter: No Vascular Central Line Catheter: No A/P Assessment and Plan 1. Chest pain: Serial cardiac enzymes are negative. Likely not cardiac in etiology. 2. Stage IV pancreatic adenocarcinoma: Continue pain control. Appreciate oncology recommendations. 3. Poor appetite: Continue IV fluids. Encourage oral intake. 4. UTI: Patient has continued to have urinary symptoms. Continue Rocephin. 5. Neuropathy, bilateral foot drop: Continue Lyrica, Cymbalta. Physical therapy. Appreciate palliative care recommendations. Methadone added. 6. Poor prognosis: Appreciate palliative care recommendations. Patient considering further chemotherapy versus transitioning to comfort care with hospice. 7. DVT prophylaxis: Lovenox. Discharge Planning Transfer to oncology unit when a bed is available. Brenden Blake MD Jan 24, 2018 11:53
--- NOTE | 2018-01-24 15:24 | HHI.HCPN ---
Reason for visit a. To assist with evaluation and management of symptoms including: neuropathy, pain, weakness and decreased appetite. b. To assist medical decision maker(s) with: better understanding of current medical conditions; weighing benefits/burdens of medical treatment options; making medical treatment decisions. . Subjective/Interval History Patient is seen and examined in [facility]. Daughter and granddaughter at bedside. She is awake and alert. She reports significant improvement in pain control with addition of Methadone 5mg PO every 12 hours ATC, she has had 2 doses. Since addition of Methadone her PRN need has decreased significantly. She has had 3 doses PRN Oxycodone since Methadone started. Urine culture preliminarily positive antonio albicans. No new labs or imaging. . Family/friend interactions Patient asks her granddaughter to leave the room so we can have a conversation. She reports she feels like the medical team is not telling her something. I explained I will be honest and answer any questions she has. She is struggling with making medical decisions regarding continuation of chemotherapy vs. transition to comfort measures. We again reviewed the risks of chemotherapy given her debilitated state due to severe neuropathy and poor nutritional status. We talked about hospice services and that medically given incurable advanced stage pancreatic cancer she is hospice eligible if her goals are comfort oriented (wanting to stay out of hospital, at home and manage symptoms). She seems to be looking for guidance from oncology as to their opinion on whether or not she should even consider more treatment. I have spoken with Nae Brandt to ask Dr. Rangel to speak with patient directly about his oncologic opinion. . Advance Directives Living Will: Never completed Health Care Surrogate: Completed, but not made available Durable Power of Semiconductor Engineer: Completed, but not made available Advance Directive Specifics Health Care Surrogate(s): Patient is currently capacitated to make her own decisions. Has DPOA paperwork that DOES NOT include health care decisions. In the absence of written advanced directives, according to [place] statutes health care proxy decision making would fall to her son and daughter. Pt. indicates she wants her daughter to make decisions, will assist in completion of designation of health care surrogate at next visit. . Significant change in goals: Patient would like to speak with Dr. Rangel about treatment options, possible side effects, his opinion about treatment vs. hospice and prognosis with or without treatment. . Objective Vital Signs Date Time Temp Pulse Resp B/P (MAP) Pulse Ox O2 Delivery O2 Flow Rate FiO2 01/24/18 15:06 98.1 86 20 93/55 (68) 99 01/24/18 12:00 98.0 96 20 107/57 (74) 99 01/24/18 08:00 97.2 66 20 145/66 (92) 100 01/24/18 03:08 98.4 67 16 118/58 (78) 98 01/24/18 01:24 18 01/24/18 00:57 98.4 73 17 125/63 (83) 97 01/23/18 20:54 18 01/23/18 20:54 18 01/23/18 19:34 98.4 70 16 133/63 (86) 100 01/23/18 15:47 98.0 78 20 128/65 (86) 99 Intake & Output 01/24/18 01/24/18 07:00 19:00 Output Total 500 ml 200 ml Balance -500 ml -200 ml Output Urine Total 500 ml 200 ml # Voids 5 2 Physical Exam CONSTITUTIONAL/GENERAL: This is an thin patient, in no apparent distress. TUBES/LINES/DRAINS: PIV left, Nunez, SCDs. SKIN: No jaundice, rashes, or lesions. Ecchymoses on upper extremities. No wounds seen anteriorly. Skin temperature appropriate. Not diaphoretic. HEAD: Alopecia. Atraumatic. Normocephalic. EYES: Pupils equal and round and reactive. Extraocular motions intact. No scleral icterus. No injection or drainage. Fundi not examined. ENT: No teeth. Wears dentures. Hearing grossly normal. Nose without bleeding or purulent drainage. Throat without exudate. NECK: Trachea midline. Supple, nontender. CARDIOVASCULAR: Regular rate and rhythm without murmurs, gallops, or rubs. No JVD. Peripheral pulses symmetric. RESPIRATORY/CHEST: Symmetric, unlabored respirations. Clear to auscultation. Breath sounds equal bilaterally. No wheezes, rales, or rhonchi. GASTROINTESTINAL: Abdomen soft, non-tender, nondistended. No guarding. Bowel sounds present. GENITOURINARY: Without palpable bladder distension. Nunez catheter in place. MUSCULOSKELETAL: Extremities without clubbing, cyanosis, or edema. No mottling or clubbing. LYMPHATICS: No palpable cervical or supraclavicular adenopathy. NEUROLOGICAL: Awake and alert. Follows commands. Cognitively sharp. Bilateral foot drop. Bilateral LE weakness, only able to lift feet off bed a few inches. PSYCHIATRIC: No obvious anxiety/depression. no apparent hallucinations or other psychotic thought process. . Diagnostic Tests Laboratory Laboratory Tests Test 01/21/18 18:00 01/22/18 01:07 01/22/18 04:40 01/23/18 10:45 Troponin I LESS THAN 0.02 NG/ML LESS THAN 0.02 NG/ML White Blood Count 12.2 TH/MM3 (4.0-11.0) Red Blood Count 4.45 MIL/MM3 (4.00-5.30) Hemoglobin 13.4 GM/DL (11.6-15.3) Hematocrit 41.1 % (35.0-46.0) Mean Corpuscular Volume 92.4 FL (80.0-100.0) Mean Corpuscular Hemoglobin 30.1 PG (27.0-34.0) Mean Corpuscular Hemoglobin Concent 32.5 % (32.0-36.0) Red Cell Distribution Width 18.5 % (11.6-17.2) Platelet Count 261 TH/MM3 (150-450) Mean Platelet Volume 9.5 FL (7.0-11.0) Neutrophils (%) (Auto) 71.4 % (16.0-70.0) Lymphocytes (%) (Auto) 16.7 % (9.0-44.0) Monocytes (%) (Auto) 8.9 % (0.0-8.0) Eosinophils (%) (Auto) 2.2 % (0.0-4.0) Basophils (%) (Auto) 0.8 % (0.0-2.0) Neutrophils # (Auto) 8.7 TH/MM3 (1.8-7.7) Lymphocytes # (Auto) 2.0 TH/MM3 (1.0-4.8) Monocytes # (Auto) 1.1 TH/MM3 (0-0.9) Eosinophils # (Auto) 0.3 TH/MM3 (0-0.4) Basophils # (Auto) 0.1 TH/MM3 (0-0.2) CBC Comment DIFF FINAL Differential Comment Blood Urea Nitrogen 8 MG/DL (7-18) Creatinine 0.64 MG/DL (0.50-1.00) Random Glucose 85 MG/DL (74-106) Total Protein 6.6 GM/DL (6.4-8.2) Albumin 3.1 GM/DL (3.4-5.0) Calcium Level 8.8 MG/DL (8.5-10.1) Alkaline Phosphatase 128 U/L (45-117) Aspartate Amino Transf (AST/SGOT) 39 U/L (15-37) Alanine Aminotransferase (ALT/SGPT) 20 U/L (10-53) Total Bilirubin 0.8 MG/DL (0.2-1.0) Sodium Level 142 MEQ/L (136-145) Potassium Level 3.6 MEQ/L (3.5-5.1) Chloride Level 105 MEQ/L (98-107) Carbon Dioxide Level 23.2 MEQ/L (21.0-32.0) Anion Gap 14 MEQ/L (5-15) Estimat Glomerular Filtration Rate 94 ML/MIN (>89) Urine Color YELLOW (YELLW/STRAW) Urine Turbidity HAZY (CLEAR) Urine pH 6.5 (5.0-8.5) Urine Specific [place] 1.015 (1.002-1.035) Urine Protein 30 mg/dL (NEG-TRACE) Urine Glucose (UA) NEG mg/dL (NEG) Urine Ketones TRACE mg/dL (NEG) Urine Occult Blood MOD (NEG) Urine Nitrite NEG (NEG) Urine Bilirubin NEG (NEG) Urine Urobilinogen LESS THAN 2.0 MG/DL (LESS Urine Leukocyte Esterase LARGE (NEG) Urine RBC 122 /hpf (0-3) Urine WBC 100 /hpf (0-5) Urine WBC Clumps RARE (NONE) Urine Bacteria RARE /hpf (NONE) Urine Hyaline Casts 9 /lpf (RARE) Urine Mucus MANY /lpf (OCC) Urine Yeast with Hyphae RARE (NONE) Urine Yeast (Budding) OCC (NONE) Microscopic Urinalysis Comment CATH-CULTURE IND Test 01/23/18 10:55 White Blood Count 9.7 TH/MM3 (4.0-11.0) Red Blood Count 3.83 MIL/MM3 (4.00-5.30) Hemoglobin 11.3 GM/DL (11.6-15.3) Hematocrit 35.2 % (35.0-46.0) Mean Corpuscular Volume 91.9 FL (80.0-100.0) Mean Corpuscular Hemoglobin 29.6 PG (27.0-34.0) Mean Corpuscular Hemoglobin Concent 32.2 % (32.0-36.0) Red Cell Distribution Width 17.8 % (11.6-17.2) Platelet Count 191 TH/MM3 (150-450) Mean Platelet Volume 9.1 FL (7.0-11.0) Neutrophils (%) (Auto) 74.3 % (16.0-70.0) Lymphocytes (%) (Auto) 13.8 % (9.0-44.0) Monocytes (%) (Auto) 8.4 % (0.0-8.0) Eosinophils (%) (Auto) 2.6 % (0.0-4.0) Basophils (%) (Auto) 0.9 % (0.0-2.0) Neutrophils # (Auto) 7.2 TH/MM3 (1.8-7.7) Lymphocytes # (Auto) 1.3 TH/MM3 (1.0-4.8) Monocytes # (Auto) 0.8 TH/MM3 (0-0.9) Eosinophils # (Auto) 0.3 TH/MM3 (0-0.4) Basophils # (Auto) 0.1 TH/MM3 (0-0.2) CBC Comment DIFF FINAL Differential Comment Result Diagram: 01/23/18 1055 01/22/18 0440 Microbiology Microbiology Date/Time Source Procedure Growth Status 01/23/18 10:45 Urine Catheterized Urine Urine Culture - Preliminary Antonio Albicans Resulted Imaging Last Impressions Chest CT 01/21/18 1310 Signed Impressions: CONCLUSION: 1. No pneumonia or other acute cardiopulmonary disease. 2. 1 cm mass of the right lower lobe is without significant change. 3. Widespread metastatic disease of the liver again noted. 4. Mild emphysema. Assessment and Plan Disease Oriented Problem List: (1) UTI (urinary tract infection) (2) Epigastric pain (3) Peripheral neuropathy (4) Weakness (5) Decreased appetite (6) Pancreatic cancer metastasized to liver (7) Lung mass Symptom Scale: (1) Weakness 0-10 Scale: Unable to quantify (2) Peripheral neuropathy 0-10 Scale: 3 (3) Decreased appetite 0-10 Scale: Unable to quantify Comment: eating small amounts. (4) Pain 0-10 Scale: 3 Pertinent Non-Medical Issues Psychosocial: Single. Has 1 daughter and 1 son. Lives with her daughter, Taisha. 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 Legal:Patient is currently capacitated to make her own decisions. Has DPOA paperwork that names her daughter Taisha Moya as health care surrogate, daughter will bring copy to next visit. In the absence of written advanced directives, according to [place] statutes health care proxy decision making would fall to her son and daughter. Pt. indicates she wants her daughter to make decisions. If DPOA does not include health care decisions, I will assist in completion of advanced directives. Ethical issues impacting care: None. Important Contacts * Taisha Moya, daughter: [phone] * Dylan Miller, friend: [phone] . Prognosis Miss Ramsey is a 62 year old female with metastatic pancreatic cancer to liver and possible lung. 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 She was admitted for pain and recurrent UTI. Cancer is not curable. Overall prognosis is poor. Hospice appropriate if goals are comfort oriented. . Code Status: Full Code Plan * Patient is currently capacitated to make her own decisions. Has DPOA paperwork that DOES NOT include health care decisions. In the absence of written advanced directives, according to [place] statutes health care proxy decision making would fall to her son and daughter. Pt. indicates she wants her daughter to make decisions, will assist in completion of designation of health care surrogate at next visit. * FULL CODE - considering DNR, she and daughter would like to talk more about this. * Goals: Patient is struggling with decision to continue chemotherapy (if an option) vs. transition to comfort measures. Patient would like to speak with Dr. Rangel about treatment options, possible side effects, his opinion about treatment vs. hospice and prognosis with or without treatment. * Discussed with Nae Brandt. * Yolis Leon LCSW will meet with patient on 01/25/18 to assist with completion of written advanced directives/ designation of health care surrogate. * SYMPTOMS; Severe neuropathy: In fingers and bilateral LEs with bilateral foot drop secondary to chemotherapy. Continue Methadone, pain improving. Pain: in epigastric and bilateral LE and neuropathic pain in bilateral LEs and fingers. Continue Methadone 5mg PO every 12 hours ATC started 01/23/18 PM. Weakness: due to malignancy, decreased appetite, severe neuropathy and inability to walk due to PN. Decreased appetite: due to malignancy. * Palliative care will continue to follow to assist with symptom management and clarification of treatment goals throughout hospital course. . Attestation To help prompt me to consider important information that might be impacting today's encounter and assessment, information from prior notes written by myself or my colleagues may have been "brought forward" into today's note. My signature on this note, however, is an attestation that I personally performed the exam, history, and/or decision-making noted today, and, unless otherwise indicated, the interactions with patient, family, and staff as well as the review of records all occurred today. I also attest that the listed assessment and stated plan reflect my best clinical judgment today based on the combination of historical information, prior notes, and today's exam/ interactions. When time spent is documented, it refers only to time spent today by the signer, or if indicated, combined time spent today by collaborating physician/nurse practitioner. . Jovanna Booker Jan 24, 2018 15:24
[2018-01-24] MEDS: ENOXAPARIN SODIUM 40 MG/0.4 ML SYRINGE SQ SCH (18:44)
[2018-01-25] VITALS (8 sets, daily range): BP systolic 104–139; BP diastolic 55–77; PULSE 73–92; RESP 16–20; TEMP 98.3–99.1; O2SAT 94–100
[2018-01-25] MEDS: MAGNESIUM HYDROXIDE SUSP 30 ML CUP PO PRN (03:55)
[2018-01-25] MEDS: PREGABALIN 75 MG CAP PO SCH ×2 (08:55→23:12)
[2018-01-25] MEDS: DULoxetine HCl DR 30 MG CAP PO SCH (08:55)
[2018-01-25] MEDS: PANTOPRAZOLE SOD 40 MG DELAYED RELEASE TAB PO SCH ×2 (08:55→23:13)
[2018-01-25] MEDS: METHADONE HCL 10 MG TAB PO SCH ×2 (08:56→23:13)
[2018-01-25] MEDS: SODIUM CHLORIDE 0.9% FLUSH 10 ML FLUSH IV FLUSH SCH ×2 (08:56→23:13)
[2018-01-25] MEDS: DOCUSATE SODIUM 50 MG/SENNA 8.6 MG TAB PO SCH ×2 (08:56→23:13)
--- NOTE | 2018-01-25 11:26 | HHI.HCPN ---
Met with Ms. Ramsey. She is alert, oriented, and able to make her needs known. She is appropriate in conversation and appears to be in good spirits. Tells me she has requested to meet with hospice to obtain information and is considering all her options. She verbalizes part of her wishes to give chemo "one more try" but is also realistic about her situation and continues to think about what is important to her as her medical condition worsens. She struggles with her own personal need to give chemo one more try but also does not want to burden her daughter with difficult decisions. States she had to watch her long-term boyfriend decline and had to make difficult decisions for him and would not want to put her daughter through those things. Verbalizes she is considering NO CODE status but wishes to continue conversations with her daughter and the medical team regarding such. Gently discussed living will and health care surrogate. Ms. Ramsey elects to complete HCS and designates her daughter, Taisha Vazquez. Wishes to discuss living will with daughter. Also requests copy of [facility] to review. Copy provided. Copy of HCS faxed to HIM to be scanned into EMR. Copy placed on chart. Original and copy given to patient and daughter. Daughter to arrive later today. Requests to meet with hospice when her daughter is here. Hospice home care manager notified of this. Palliative care will continue to follow throughout hospitalization. Yolis Leon, SHRIMP PACKER Jan 25, 2018 11:26
[2018-01-25] MEDS: cefTRIAXone INJ 1,000 MG in SODIUM CHLORIDE 0.9% INJ 100 ML IV SCH (13:47)
--- NOTE | 2018-01-25 14:23 | HHI.PR ---
Subjective Remarks Follow-up neuropathy pain, abdominal pain, UTI. Patient is currently doing well. We had a long discussion. She wants to consider home with hospice. However down the road, if she feels better in a month or two, she would like the option to get out of hospice and try chemotherapy. She overall wants comfort care than aggressive care that might reduce her quality of life. Objective Vitals Vital Signs Date Time Temp Pulse Resp B/P (MAP) Pulse Ox O2 Delivery O2 Flow Rate FiO2 01/25/18 13:48 98.3 77 16 124/70 (88) 100 01/25/18 08:00 92 01/25/18 07:58 99.1 83 20 112/58 (76) 98 01/25/18 03:42 98.7 85 18 139/77 (97) 99 01/25/18 00:02 73 01/24/18 23:36 98.5 86 18 121/65 (83) 98 01/24/18 20:24 97.8 77 18 129/70 (89) 100 01/24/18 20:13 82 01/24/18 17:26 80 01/24/18 15:08 98/60 (73) 01/24/18 15:06 98.1 86 20 93/55 (68) 99 I/O 01/24/18 01/24/18 01/24/18 01/25/18 01/25/18 01/25/18 07:00 15:00 23:00 07:00 15:00 23:00 Intake Total 360 ml 120 ml Output Total 500 ml 200 ml 300 ml Balance -500 ml -200 ml 360 ml -180 ml Intake Oral 360 ml 120 ml Output Urine Total 500 ml 200 ml 300 ml # Voids 5 2 1 # Bowel Movements 0 Result Diagram: 01/23/18 1055 01/22/18 0440 Imaging Last Impressions Chest CT 01/21/18 1310 Signed Impressions: CONCLUSION: 1. No pneumonia or other acute cardiopulmonary disease. 2. 1 cm mass of the right lower lobe is without significant change. 3. Widespread metastatic disease of the liver again noted. 4. Mild emphysema. Objective Remarks GENERAL: AOx3, NAD. SKIN: Warm and dry. HEAD: Normocephalic. EYES: No scleral icterus. No injection or drainage. NECK: Supple, trachea midline. No JVD or lymphadenopathy. CARDIOVASCULAR: Regular rate and rhythm without murmurs, gallops, or rubs. RESPIRATORY: Breath sounds equal bilaterally. No accessory muscle use. GASTROINTESTINAL: Abdomen soft, non-tender, nondistended. MUSCULOSKELETAL: No cyanosis, or edema. BACK: Nontender without obvious deformity. No CVA tenderness. Procedures None A/P Assessment and Plan 1. Chest pain: Serial cardiac enzymes are negative. Likely not cardiac in etiology. 2. Stage IV pancreatic adenocarcinoma: Continue pain control. Appreciate oncology recommendations. Hospice evaluated patient. Plan to discharge patient to home with hospice on 01/26/2018. 3. Poor appetite: Continue IV fluids. Encourage oral intake. 4. UTI - Cx grew antonio but 10-50K CFU. Not significant. Will d/c ceftriaxone. 5. Neuropathy, bilateral foot drop: Continue Lyrica, Cymbalta. Physical therapy. Appreciate palliative care recommendations. Methadone added. 6. Poor prognosis: Appreciate palliative care recommendations. 7. DVT prophylaxis: Lovenox. Destini Mayorga DO Jan 25, 2018 2:23 pm
[2018-01-25] MEDS: ENOXAPARIN SODIUM 40 MG/0.4 ML SYRINGE SQ SCH (17:02)
[2018-01-26 00:50] VITALS: BP 104/53; PULSE 79; RESP 16; TEMP 98.3; O2SAT 98
[2018-01-26 05:16] VITALS: BP 108/69; PULSE 92; RESP 16; TEMP 98.2; O2SAT 98
[2018-01-26 07:10] VITALS: PULSE 70
[2018-01-26] MEDS: DOCUSATE SODIUM 50 MG/SENNA 8.6 MG TAB PO SCH (08:52)
[2018-01-26] MEDS: PANTOPRAZOLE SOD 40 MG DELAYED RELEASE TAB PO SCH (08:52)
[2018-01-26] MEDS: DULoxetine HCl DR 30 MG CAP PO SCH (08:52)
[2018-01-26] MEDS: PREGABALIN 75 MG CAP PO SCH (08:52)
[2018-01-26] MEDS: SODIUM CHLORIDE 0.9% FLUSH 10 ML FLUSH IV FLUSH SCH (08:54)
[2018-01-26] MEDS: METHADONE HCL 10 MG TAB PO SCH (08:54)
[2018-01-26 08:57] VITALS: BP 129/66; PULSE 78; RESP 18; TEMP 97.8; O2SAT 100
[2018-01-26] MEDS ORDERED: LACTULOSE SYRUP 20 GM/30 ML CUP PO SCH (09:00)
[2018-01-26] MEDS ORDERED: OXYC-395 PO (09:56)
[2018-01-26 11:30] VITALS: BP 100/62; PULSE 87; RESP 16; TEMP 98.5; O2SAT 100
[2018-01-26 12:05] VITALS: O2SAT 96
--- NOTE | 2018-01-26 14:54 | HHI.DS ---
Discharge Summary Admission Date Jan 23, 2018 at 2:50 pm Discharge Date: Jan 26, 2018 Admitting Diagnosis CP R/O SC (1) Pancreatic cancer metastasized to liver ICD Code: C25.9 - Malignant neoplasm of pancreas, unspecified; C78.7 - Secondary malignant neoplasm of liver and intrahepatic bile duct Procedures None Brief History - From Admission Patient is a 62 year old female with past medical history of metastatic pancreatic cancer, skin cancer, neuropathy, anxiety, depression who came into the hospital for evaluation of chest pain, midepigastric pain. Patient states chest pain started about 2 days ago not associated with shortness of breath or dyspnea, diaphoresis, nausea, vomiting. Patient states pain is in the mid epigastric region and it goes left lateral chest side, also it goes right upper quadrant area. Described as intermittent, it feels like "when I do not eat on time, I do not know how to describe it," 6/10, loss of appetite, does not know how to relieve it or does not know what aggravates it. States she has nausea but relates it to pain medication and previous chemotherapy. Patient is being followed by Dr. Rangel in the outpatient setting. States she finished her first cycle of chemotherapy 3 weeks ago. Patient reports weight loss. She also reports bilateral foot drop. States she is on physical therapy at home, unable to bear weight and stand up. She has her grand son to assist her transferring in and out of the commode at home. She also reports she has urinary tract infection that is being followed by Dr. Rangel, she was placed on Keflex. States she is on and off of antibiotics secondary to urinary tract infection. Complains of mild dysuria. She has a Nunze catheter now placed during admission to the ED, draining cloudy urine. Denies palpitations, shortness of breath or dyspnea, dizziness, headaches. Denies fevers, chills. Initial vital signs 98.4, 90, 18, 130/90 CBC no leukocytosis noted, slightly elevated neutrophil First troponin negative, 0.02 Lipase 41, albumin 3.[address] showed no pneumonia or other acute cardiopulmonary disease. 1 cm mass of the right lower lobe is without significant change. Widespread metastatic disease of the liver again noted. Mild emphysema. CBC/BMP: 01/23/18 1055 01/22/18 0440 Imaging Last Impressions Chest CT 01/21/18 1310 Signed Impressions: CONCLUSION: 1. No pneumonia or other acute cardiopulmonary disease. 2. 1 cm mass of the right lower lobe is without significant change. 3. Widespread metastatic disease of the liver again noted. 4. Mild emphysema. PE at Discharge GENERAL: AOx3, NAD. SKIN: Warm and dry. HEAD: Normocephalic. EYES: No scleral icterus. No injection or drainage. NECK: Supple, trachea midline. No JVD or lymphadenopathy. CARDIOVASCULAR: Regular rate and rhythm without murmurs, gallops, or rubs. RESPIRATORY: Breath sounds equal bilaterally. No accessory muscle use. GASTROINTESTINAL: Abdomen soft, non-tender, nondistended. MUSCULOSKELETAL: No cyanosis, or edema. BACK: Nontender without obvious deformity. No CVA tenderness. Pt update on day of discharge Patient is doing well. No acute concerns. She is waiting to go home with hospice. Hospital Course 1. Chest pain: Serial cardiac enzymes are negative. Likely not cardiac in etiology. 2. Stage IV pancreatic adenocarcinoma: Continue pain control. Appreciate oncology recommendations. Hospice evaluated patient. She is going home with hospice today. 3. Poor appetite: Encourage oral intake. 4. UTI - Cx grew antonio but 10-50K CFU. Not significant. d/c ceftriaxone. 5. Neuropathy, bilateral foot drop: Continue Lyrica, Cymbalta. Physical therapy. Appreciate palliative care recommendations. Methadone added. Overall Poor prognosis: Appreciate palliative care recommendations and hospice recommendations. Pt Condition on Discharge: Fair Discharge Disposition: Hospice/ Home Discharge Time: <= 30 minutes Discharge Instructions DIET: Follow Instructions for: As Tolerated, No Restrictions Activities you can perform: Regular-No Restrictions New Medications: Oxycodone (Oxycodone) 10 Mg Tab 10 MG PO Q6H PRN for PAIN, #20 TAB 0 Refills Cancer pain management. Continued Medications: Cranberry-Vitamin C-Probiotic (Azo Cranberry) 250-30 Mg Tab 2 TAB PO DAILY for Urinary Health Duloxetine DR (Duloxetine DR) 30 Mg Capdr 30 MG PO DAILY for Control Depression, #30 CAP 0 Refills Magnesium Glycinate (Mag Glycinate) 100 Mg Tablet 4 TAB PO DAILY for Nutritional Supplement Milk Thistle (Milk Thistle) 150 Mg Cap 1 CAP PO DAILY for Nutritional Supplement Pantoprazole (Pantoprazole) 40 Mg Tab 40 MG PO BID for Reflux, #30 TAB 0 Refills Pregabalin (Lyrica) 150 Mg Cap 150 MG PO BID for Pain Management, #60 CAP 0 Refills Discontinued Medications: Cephalexin (Cephalexin) 500 Mg Cap 500 MG PO TID for Infection, CAP 0 Refills Hydromorphone (Hydromorphone) 4 Mg Tab 4 MG PO Q3HR PRN for PAIN, TAB 0 Refills Destini Mayorga DO Jan 26, 2018 2:54 pm
== END 2018-01-26 12:47 | disposition hospice, home (50) | DRG 948 ==
LOC: NEPE 12:44 → NEDA 16:38 → NEPHCDU 19:30 → OBSVTOIN 01-23 14:50 → HCIN 01-24 15:40
PROVIDERS: ADMIT Hospitalist; ATTEND Hospitalist
PROC: 0T9B70Z Drainage of Bladder with Drainage Device, Via Natural or Artificial Opening (ICD-10-PCS; principal; 2018-01-21)
DX: G89.3 Neoplasm related pain (acute) (chronic) (principal); C25.9 Malignant neoplasm of pancreas, unspecified; C78.7 Secondary malignant neoplasm of liver and intrahepatic bile duct; C78.00 Secondary malignant neoplasm of unspecified lung; N39.0 Urinary tract infection, site not specified; J43.9 Emphysema, unspecified; K21.9 Gastro-esophageal reflux disease without esophagitis; R26.2 Difficulty in walking, not elsewhere classified; M54.9 Dorsalgia, unspecified; G62.0 Drug-induced polyneuropathy; T45.1X5A Adverse effect of antineoplastic and immunosuppressive drugs, initial encounter; K59.00 Constipation, unspecified; R63.0 Anorexia; M21.371 Foot drop, right foot; M21.372 Foot drop, left foot; Z51.5 Encounter for palliative care; F32.9 Major depressive disorder, single episode, unspecified; F41.9 Anxiety disorder, unspecified; Z85.828 Personal history of other malignant neoplasm of skin; Z87.440 Personal history of urinary (tract) infections; Z87.891 Personal history of nicotine dependence; Z80.1 Family history of malignant neoplasm of trachea, bronchus and lung
CPT/HCPCS: 71250; 80053; 81001; 83690; 84484; 85025; 87086; 93005; G8987-GP; G8988-GP; J0696; J0780; J1170; J1650; J2270; J7030